=== PATIENT | male | born 1965 | race American Indian/Alaskan Native ===

== ENCOUNTER 2016-10-05 17:01 | Emergency (ER) | payer OTHER ==
[2016-10-05 17:23] VITALS: BP 135/104
--- NOTE | 2016-10-05 17:56 | EDM.PDOC ---
Scribed by Jaimie Pulido 10/05/16 [id number] for Yogesh Jimenez MD ED HPI Trauma - General Chief Complaint: Upper Extremity Injury/Pain Stated Complaint: POSSIBLE BROKEN RIGHT WRIST Time Seen by Provider: 10/05/16 17:04 Source: Reports: Patient, RN, RN notes reviewed History Limitations: Reports: No limitations - History of Present Illness INITIAL COMMENTS - FREE TEXT/NARRATIVE: Complaining of right wrist pain sustained from a fall at home at 16:12 hours. Patient was carrying a laundry basket after drinking 9 beers and tripped. Denies any other injury. Rates pain 01/11. Pain is better immobilized and worse with palpation or ROM. Symptom Onset Date: 10/05/16 Occurred When: just prior to arrival Occurred Where: home Method of Injury: fall Severity: severe Pain/Injury Location: Reports: upper extremity, right Consciousness: Reports: no loss of consciousness Associated Symptoms: Reports: no other symptoms Allergies/ADRs: Allergies No Known Allergies Allergy (Verified 10/05/16 17:07) Home Medications: Ambulatory Orders Aspirin [Bony Chewable Aspirin] 81 mg PO DAILY 12/16/13 [Confirmed 10/05/16] Multivitamin [Multivitamins] 1 each PO DAILY 12/16/13 [Confirmed 10/05/16] Propranolol [Inderal] 10 mg PO BID 12/16/13 [Confirmed 10/05/16] Albuterol [Proventil HFA] 1 puff INH QID PRN 01/05/14 [Confirmed 10/05/16] Albuterol [Proventil Neb Soln] 1 ampule NEB Q6H 01/05/14 [Confirmed 10/05/16] Diclofenac Sodium [Voltaren] 1 applic TOP DAILY 01/05/14 [Confirmed 04/28/16] Mometasone/Formoterol [Dulera 100 Mcg/5 Mcg Inhaler] 1 puff PO DAILY 01/05/14 [ Confirmed 10/05/16] Tiotropium [Spiriva] 18 mcg INH BID 01/05/14 [Confirmed 10/05/16] Ibuprofen [Motrin] 600 mg PO TID PRN 04/28/16 [Confirmed 10/05/16] Lisinopril 10 mg PO TID 09/25/16 [Confirmed 10/05/16] Gabapentin [Neurontin] 10/05/16 oxyCODONE ER [OxyCONTIN] 10/05/16 Past Medical History - Past Health History Medical/Surgical History: Denies Medical/Surgical History Cardiovascular History: Reports: Hypertension Respiratory History: Reports: Asthma, COPD, Other (see below), Pneumonia, recurrent Gastrointestinal History: Reports: PUD Musculoskeletal History: Reports: Other (see below) Other Musculoskeletal History: PERTHES DISEASE, CARPAL TUNNEL SYNDROME BILATERALLY Neurological History: Reports: Other (see below) 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 Psychiatric History: Reports: Addiction (alcohol) - Past Surgical History Respiratory Surgical History: Reports: Tracheostomy Social & Family History - Family History Family Medical History: Noncontributory - Tobacco Use Smoking Status *Q: Current Every Day Smoker Years of Tobacco use: 34 Packs/Tins Daily: 1 Used Tobacco, but Quit: No Month Tobacco Last Used: january Second Hand Smoke Exposure: Yes - Caffeine Use Caffeine Use: Reports: None - Alcohol Use Days Per Week of Alcohol Use: 7 Number of Drinks Per Day: 16 Total Drinks Per Week: 112 - Recreational Drug Use Recreational Drug Use: No Drug Use in Last 12 Months: No - Living Situation & Occupation Living situation: Reports: with family Occupation: unemployed Review of Systems - Review of Systems Review Of Systems: ROS reveals no pertinent complaints other than HPI. Trauma Exam - Physical Exam Exam: See Below Exam Limited By: No limitations General Appearance: Reports: alert, WD/WN, no apparent distress Head: Reports: atraumatic, normocephalic Eyes: bilateral eye: normal inspection Ears: Reports: normal external exam, normal canal, hearing grossly normal, normal TMs Nose: Reports: normal inspection, normal mucousa, no blood Throat/Mouth: Reports: Normal inspection, Normal lips, Normal teeth, Normal gums , Normal oropharynx, Normal voice, No airway compromise Neck: Reports: non-tender, full range of motion, normal alignment, normal inspection Respiratory Exam: Reports: no respiratory distress Cardiovascular: Reports: normal peripheral pulses (at bilateral upper extremities.) Back: Reports: full range of motion, normal inspection, non-tender Extremities: Reports: other (right wrist tender, swollen and mild bruising. Skin intact. ) Neurologic: Reports: other (intoxicated steady gait.) Skin: Reports: Normal color, Warm/dry ED TRAUMA EXTREMITY PROCEDURES - Splinting Right Upper Extremity Splint site: right wrist Pre-procedure NV status: normal Post-procedure NV status: normal Splint material: fiberglass Splint design: volar Applied & form fitted by: provider Provider post-splint application NV check: NV status normal, good position Complications: No Course - Vital Signs Last Recorded V/S: Last Vital Signs Temp 36.6 C 10/05/16 17:16 Pulse 89 10/05/16 17:16 Resp 16 10/05/16 17:16 BP 135/104 H 10/05/16 17:16 Pulse Ox 97 10/05/16 17:16 - Orders/Labs/Meds Orders: Active Orders 24 hr Category Date Time Status Splinting [RC] ASDIRECTED Care 10/05/16 17:30 Active Wrist Comp Min 3V Rt [CR] Urgent Exams 10/05/16 17:05 Taken DME for Discharge [COMM] Routine Oth 10/05/16 17:31 Ordered - Radiology Interpretation Free Text/Narrative:: X-ray right wrist 3 views: Impacted and angulated distal right radius fracture with small avulsion fracture of the distal right ulnar styloid. Departure - Departure Time of Disposition: 17:33 Disposition: Home, Self-Care 01 Condition: good Clinical Impression: Colles' fracture Qualifiers: Encounter type: initial encounter Fracture type: closed Laterality: right Qualified Code(s): S52.531A - Colles' fracture of right radius, initial encounter for closed fracture Instructions: Colles Fracture Forms: ED Department Discharge Additional Instructions: Do not remove splint. Tighten or loosen Fei wrap as needed. Rest, ice pack and elevate right wrist to reduce pain and swelling. Call [facility] tomorrow morning to schedule an appointment for evaluation of your Colle's fracture ([phone]). Return to ER if any further problems. Chambers 5mg/325mg. *do not take this medication while under the influence of alcohol and do not drive while under the influence of this medication. - My Orders Last 24 Hours: My Active Orders 10/05/16 17:05 Wrist Comp Min 3V Rt [CR] Urgent 10/05/16 17:30 Splinting [RC] ASDIRECTED 10/05/16 17:31 DME for Discharge [COMM] Routine - Assessment/Plan Last 24 Hours: My Active Orders 10/05/16 17:05 Wrist Comp Min 3V Rt [CR] Urgent 10/05/16 17:30 Splinting [RC] ASDIRECTED 10/05/16 17:31 DME for Discharge [COMM] Routine I have read and agree with the documentation that has been completed regarding this visit. By signing this record, I attest that the documentation was completed in my physical presence and is an accurate record of the encounter.
== END 2016-10-05 18:01 | disposition home or self-care (01) ==
LOC: DL.ED 17:01
DX: S52.531A Colles' fracture of right radius, initial encounter for closed fracture (principal); I10 Essential (primary) hypertension; J45.909 Unspecified asthma, uncomplicated; J44.9 Chronic obstructive pulmonary disease, unspecified; F17.210 Nicotine dependence, cigarettes, uncomplicated; Z79.899 Other long term (current) drug therapy; W19.XXXA Unspecified fall, initial encounter; Y93.89 Activity, other specified; Y92.009 Unspecified place in unspecified non-institutional (private) residence as the place of occurrence of the external cause
CPT/HCPCS: 29125; 73110-RT; 99283

== ENCOUNTER 2017-09-12 11:14 | Inpatient (IN) | payer OTHER ==
[2017-09-12] MEDS ORDERED: methylPREDNISolone Sodium Succinate 125 MG/2 ML SDV IVPUSH ONE (11:16)
[2017-09-12] MEDS ORDERED: Ondansetron 4 MG/2 ML SDV IV ONE (11:16)
[2017-09-12] MEDS ORDERED: Albuterol/Ipratropium 3.0-0.5 MG/3 ML Neb Soln NEB ONE (11:16)
[2017-09-12] MEDS ORDERED: fentaNYL 100 MCG/2 ML SDV IVPUSH ONE ×2 (11:17→12:18)
--- NOTE | 2017-09-12 11:26 | EDM.PDOC ---
ED HPI GENERAL MEDICAL PROBLEM - General Chief Complaint: Chest Pain Stated Complaint: IN BY AMBULANCE Time Seen by Provider: 09/12/17 11:15 Source of Information: Reports: Patient, EMS, Old Records, RN, RN Notes Reviewed History Limitations: Reports: No Limitations - History of Present Illness INITIAL COMMENTS - FREE TEXT/NARRATIVE: Arrives from home by ambulance with c/o severe right rib pain sustained last night when pt tripped and fell in his bathroom and struck his right chest. Pt c/ o wheezing and SOB which has been getting worse x1 week. Onset: Sudden Onset Date: 09/11/17 Onset Time: 23:30 Duration: Constant Location: Reports: Chest Quality: Reports: Ache, Sharp Severity: Severe Improves with: Reports: Immobilization Worsens with: Reports: Breathing, Movement Associated Symptoms: Reports: No Other Symptoms Treatments INSULATION CUTTER: Reports: NSAIDS Bilateral Chest Pain Score (Numeric/FACES): 10 - Related Data Allergies Allergy/AdvReac Type Severity Reaction Status Date / Time No Known Allergies Allergy Verified 07/20/17 11:17 Home Meds: Home Meds Propranolol [Inderal] 10 mg PO BID 12/16/13 [History] Albuterol [Proventil HFA] 2 puff INH QID PRN 01/05/14 [History] Albuterol [Proventil Neb Soln] 1 ampule NEB Q6H 01/05/14 [History] Mometasone/Formoterol [Dulera 100 Mcg/5 Mcg Inhaler] 1 puff PO DAILY 01/05/14 [ History] Ibuprofen [Motrin] 600 mg PO Q6H PRN 04/28/16 [History] Gabapentin [Neurontin] 400 mg PO TID 10/05/16 [History] Budesonide [Pulmicort] 1 vial INH BID 07/20/17 [History] Cyclobenzaprine [Flexeril] 10 mg PO DAILY PRN 07/20/17 [History] DULoxetine [Cymbalta] 60 mg PO DAILY 07/20/17 [History] Diltiazem [Cardizem SR] 120 mg PO DAILY 07/20/17 [History] Loratadine 10 mg PO DAILY 07/20/17 [History] Melatonin 6 mg PO BEDTIME 07/20/17 [History] Multivitamin B Complex + Zinc 1 tab PO DAILY 07/20/17 [History] Omeprazole 20 mg PO DAILY 07/20/17 [History] traZODone HCl [Trazodone HCl] 50 mg PO BEDTIME 07/20/17 [History] Past Medical History - Past Health History Medical/Surgical History: Denies Medical/Surgical History HEENT History: Reports: None Cardiovascular History: Reports: High Cholesterol, Hypertension Respiratory History: Reports: Asthma, COPD, Other (See Below), Pneumonia, Recurrent Gastrointestinal History: Reports: GERD, PUD Genitourinary History: Reports: None Musculoskeletal History: Reports: Fracture, Other (See Below) Other Musculoskeletal History: PERTHES DISEASE, CARPAL TUNNEL SYNDROME BILATERALLY Neurological History: Reports: Neuropathy, Peripheral, Other (See Below) 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 Psychiatric History: Reports: Addiction, Anxiety, Depression Hematologic History: Reports: None Immunologic History: Reports: None Oncologic (Cancer) History: Reports: None Dermatologic History: Reports: None - Infectious Disease History Infectious Disease History: Reports: None - Past Surgical History Musculoskeletal Surgical History: Social & Family History - Family History Family Medical History: Noncontributory - Tobacco Use Smoking Status *Q: Current Every Day Smoker Tobacco Use Within Last Twelve Months: Cigarettes Years of Tobacco use: 34 Packs/Tins Daily: 1 Used Tobacco, but Quit: No Smoking Cessation Information Provided To Patient: Yes Second Hand Smoke Exposure: Yes Second Hand Smoke Education Provided: No - Tobacco Core Measures Tobacco Use/Smoking Within Last 30 Days: Yes Smoking Frequency Within Last 30 Days: Reports: Five or More Cigarettes Per Day Smokeless Tobacco Use in Last 30 Days: Yes Smokeless Tobacco Use History: None Desires Tobacco Cessation Medication: Refuses FDA Approved Med - Caffeine Use Caffeine Use: Reports: None - Alcohol Use Days Per Week of Alcohol Use: 7 Number of Drinks Per Day: 16 Total Drinks Per Week: 112 Alcohol Use in Last Twelve Months: Yes Alcohol Use Frequency: Daily - Recreational Drug Use Recreational Drug Use: No Drug Use in Last 12 Months: No - Living Situation & Occupation Living situation: Reports: with Family Occupation: Unemployed ED ROS GENERAL - Review of Systems Review Of Systems: ROS reveals no pertinent complaints other than HPI. ED EXAM, GENERAL - Physical Exam Exam: See Below Exam Limited By: No Limitations General Appearance: Alert, Anxious, Mild Distress, Thin, Other (chronically ill , uncomfortable but non-toxic appearing) Eye Exam: Bilateral Eye: Normal Inspection Ears: Hearing Grossly Normal Nose: Normal Inspection, Normal Mucosa, No Blood Throat/Mouth: Normal Inspection, Normal Lips, Normal Teeth, Normal Oropharynx, Normal Voice, No Airway Compromise. No: Perioral Cyanosis Head: Atraumatic, Normocephalic Neck: Normal Inspection, Supple, Non-Tender, Full Range of Motion Respiratory/Chest: No Respiratory Distress, No Accessory Muscle Use, Decreased Breath Sounds, Crackles, Wheezing, Splinting (of Rt chest), Other (Rt mid-to low chest wall with generalized acute tenderness, no visible bruising or swelling, skin is intact) Cardiovascular: Regular Rate, Rhythm, No Edema, No JVD, No Murmur, No Rub, Tachycardia GI/Abdominal: Normal Bowel Sounds, Soft, Non-Tender, No Distention, Pelvis Stable (Male) Exam: Deferred Rectal (Males) Exam: Deferred Back Exam: CVA Tenderness (R), Decreased Range of Motion. No: CVA Tenderness (L ) Extremities: Normal Inspection, Normal Range of Motion, Non-Tender, Normal Capillary Refill, No Pedal Edema Neurological: Alert, Oriented, CN II-XII Intact, Normal Cognition, No Motor/ Sensory Deficits Psychiatric: Anxious Skin Exam: Warm, Dry, Intact, Normal Color, No Rash EKG INTERPRETATION EKG Date: 09/12/17 Time: 11:43 Rhythm: Other (Sinus tach) Rate (Beats/Min): 105 [place]: Normal P-Wave: Present QRS: Other (LAFB) ST-T: Normal QT: Normal Comparison: NA - No Prior EKG Course - Vital Signs Last Recorded V/S: Last Vital Signs Temp 35.3 C 09/12/17 11:10 Pulse 105 H 09/12/17 11:32 Resp 36 H 09/12/17 11:10 BP 128/82 09/12/17 11:10 Pulse Ox 84 L 09/12/17 11:10 - Orders/Labs/Meds Orders: Active Orders 24 hr Category Date Time Status EKG 12 Lead [EKG Documentation Completion] [RC] STAT Care 09/12/17 11:27 Active Peripheral IV Care [RC] . DIRECTED Care 09/12/17 11:17 Active RT Aerosol Therapy [RC] ASDIRECTED Care 09/12/17 11:17 Active CULTURE BLOOD [BC] Stat Lab 09/12/17 11:26 Received CULTURE BLOOD [BC] Stat Lab 09/12/17 11:30 Received Sodium Chloride 0.9% [Saline Flush] Med 09/12/17 11:17 Active 10 ml FLUSH ASDIRECTED PRN Blood Culture x2 Reflex Set [OM.PC] Stat Oth 09/12/17 11:15 Ordered Peripheral IV Insertion Adult [OM.PC] Stat Oth 09/12/17 11:15 Ordered Medication Orders Sodium Chloride (Saline Flush) 10 ml FLUSH ASDIRECTED PRN PRN Reason: Keep Vein Open Last Admin: 09/12/17 11:33 Dose: 10 ml Labs: Laboratory Tests 09/12/17 09/12/17 09/12/17 Range/Units 11:26 11:26 11:26 WBC 10.0 (5.0-10.0) 10^3/uL RBC 4.42 L (4.6-6.2) 10^6/uL Hgb 13.3 L (14.0-18.0) g/dL Hct 38.2 L (40.0-54.0) % MCV 86.4 D (80-100) fL MCH 30.1 (27.0-34.0) pg MCHC 34.8 (33.0-35.0) g/dL Plt Count 284 D (150-450) 10^3/uL Neut % (Auto) 62.8 (42.2-75.2) % Lymph % (Auto) 23.7 (20.5-50.1) % [place] % (Auto) 11.2 H (2-8) % Eos % (Auto) 1.8 (1.0-3.0) % Baso % (Auto) 0.5 (0.0-1.0) % Sodium 122 L (135-145) mmol/L Potassium 4.3 (3.6-5.0) mmol/L Chloride 85 L (101-111) mmol/L Carbon Dioxide 25.0 (21.0-31.0) mmol/L Anion Gap 16.3 BUN 4 L D (7-18) mg/dL Creatinine 0.5 L (0.6-1.3) mg/dL Est Cr Clr Drug Dosing 159.50 mL/min Estimated GFR (MDRD) > 60 BUN/Creatinine Ratio 8.00 Glucose 79 (74-105) mg/dL Calcium 8.7 (8.4-10.2) mg/dl Total Bilirubin 0.6 (0.2-1.0) mg/dL AST 57 H (10-42) IU/L ALT 26 (10-60) IU/L Alkaline Phosphatase 102 (42-121) IU/L Troponin I < 0.02 (0.00-0.02) ng/ml Total Protein 7.7 (6.7-8.2) g/dl Albumin 4.3 (3.2-5.5) g/dl Globulin 3.4 Albumin/Globulin Ratio 1.26 Ethyl Alcohol 68 mg/dL Meds: Medications Generic Name Dose Route Start Last Admin Trade Name Freq PRN Reason Stop Dose Admin Sodium Chloride 10 ml 09/12/17 11:17 09/12/17 11:33 Saline Flush FLUSH 10 ml ASDIRECTED PRN Administration Keep Vein Open Discontinued Medications Generic Name Dose Route Start Last Admin Trade Name Freq PRN Reason Stop Dose Admin Albuterol/Ipratropium 3 ml 09/12/17 11:16 09/12/17 11:33 Duoneb 3.0-0.5 Mg/3 Ml NEB 09/12/17 11:17 3 ml ONETIME ONE Administration Fentanyl 25 mcg 09/12/17 11:17 09/12/17 11:33 Sublimaze IVPUSH 09/12/17 11:18 25 mcg ONETIME ONE Administration Fentanyl 50 mcg 09/12/17 12:18 09/12/17 12:30 Sublimaze IVPUSH 09/12/17 12:19 50 mcg ONETIME ONE Administration Multivitamins/Minerals 10 ml/ 1,011.2 mls @ 999 mls/hr 09/12/17 12:09 12:33 Thiamine HCl 100 mg/ Folic IV 09/12/17 13:09 999 mls/hr Acid 1 mg/ Lactated Ringer's .BOLUS ONE Administration Methylprednisolone Sodium Succinate 125 mg 09/12/17 11:16 09/12/17 11:33 Solu-Medrol IVPUSH 09/12/17 11:17 125 mg ONETIME ONE Administration Ondansetron HCl 4 mg 09/12/17 11:16 09/12/17 11:35 Zofran IV 09/12/17 11:17 4 mg ONETIME ONE Administration - Radiology Interpretation Free Text/Narrative:: CT Chest non-contrast: Acute nondisplaced fractures of the posterolateral right 8th, 9th, 10th, & 11th ribs with small ipsilateral dependent pleural effusion, and underlying lower lobe atelectasis on the right. No pneumothorax, no lung mass or mediastinal lymphadenoathy, and no infiltrate/consolidation/pneumonia per Rad. report. CT Results Date: 09/12/17 Departure - Departure Time of Disposition: 13:38 (admitted to Dr. Rendon) Disposition: Admitted As Inpatient 67 Condition: Fair Clinical Impression: COPD with acute exacerbation, Alcohol abuse, Tobacco dependence due to cigarettes, Hypoxia, Hyponatremia Fracture of four ribs Qualifiers: Encounter type: initial encounter Fracture type: closed Laterality: right Qualified Code(s): S22.41XA - Multiple fractures of ribs, right side, initial encounter for closed fracture Fall as cause of accidental injury in home as place of occurrence Qualifiers: Encounter type: initial encounter Qualified Code(s): W19.XXXA - Unspecified fall, initial encounter; Y92.009 - Unspecified place in unspecified non- institutional (private) residence as the place of occurrence of the external cause - Discharge Information Forms: ED Department Discharge - My Orders Last 24 Hours: My Active Orders 09/12/17 11:15 Blood Culture x2 Reflex Set [OM.PC] Stat Peripheral IV Insertion Adult [OM.PC] Stat 09/12/17 11:17 Peripheral IV Care [RC] . DIRECTED RT Aerosol Therapy [RC] ASDIRECTED Sodium Chloride 0.9% [Saline Flush] 10 ml FLUSH ASDIRECTED PRN 09/12/17 11:26 CULTURE BLOOD [BC] Stat 09/12/17 11:27 EKG 12 Lead [EKG Documentation Completion] [RC] STAT 09/12/17 11:30 CULTURE BLOOD [BC] Stat - Assessment/Plan Last 24 Hours: My Active Orders 09/12/17 11:15 Blood Culture x2 Reflex Set [OM.PC] Stat Peripheral IV Insertion Adult [OM.PC] Stat 09/12/17 11:17 Peripheral IV Care [RC] . DIRECTED RT Aerosol Therapy [RC] ASDIRECTED Sodium Chloride 0.9% [Saline Flush] 10 ml FLUSH ASDIRECTED PRN 09/12/17 11:26 CULTURE BLOOD [BC] Stat 09/12/17 11:27 EKG 12 Lead [EKG Documentation Completion] [RC] STAT 09/12/17 11:30 CULTURE BLOOD [BC] Stat
[2017-09-12] MEDS: Sodium Chloride 0.9% 10 ML Syringe FLUSH PRN ×2 (11:33→15:02)
[2017-09-12 12:06] LABS: ANION GAP 16.3; CHLORIDE,CL 85 mmol/L (101-111); SODIUM,NA 122 mmol/L (135-145)
[2017-09-12] MEDS ORDERED: MVI, Adult with Vitamin K 10 ML, Thiamine 100 MG, Folic Acid 1 MG in Lactated Ringers 1... IV ONE ×4 (12:09)
--- NOTE | 2017-09-12 12:26 | CT ---
Clinical history: 51-year-old hypertensive 145 pound male smoker who injured right chest/rib (fall) p resents now pain and wheezing. Scan technique: Volume acquisition of data emergency unenhanced CT scan of the chest (bony thorax, kei ngs and mediastinum) obtained while the patient was lying supine on the Siemens multislice scanner [place], [place]. All data archived in the PACS system for storage, refo rmatting and study (bone/lung/mediastinal windows). Interpretation:
[2017-09-12] MEDS: Sodium Chloride 0.9% 1,000 ML IV SCH (14:00)
[2017-09-12] MEDS ORDERED: Acetaminophen 325 MG Tab PO PRN (14:50)
[2017-09-12] MEDS ORDERED: Aluminum Hydroxide/Magnesium Hydroxide/Simethicone Susp 30 ML Cup PO PRN (14:50)
[2017-09-12] MEDS ORDERED: Bisacodyl 10 MG Supp RECTAL PRN (14:50)
[2017-09-12] MEDS ORDERED: Magnesium Hydroxide 400 MG/5 ML Susp 30 ML Cup PO PRN (14:50)
[2017-09-12] MEDS ORDERED: Calcium Carbonate 500 MG Tab.Chew PO PRN (14:50)
[2017-09-12] MEDS ORDERED: Morphine 2 MG/ML Syringe IVPUSH STA (14:55)
[2017-09-12] MEDS ORDERED: Albuterol 6.7 GM Inhaler INH PRN (14:56)
[2017-09-12] MEDS ORDERED: Albuterol 0.021% 0.63 MG/3 ML Neb Soln NEB SCH (15:00)
[2017-09-12] MEDS ORDERED: methylPREDNISolone Sod Succ 60 MG in Sodium Chloride 0.9% 100 ML IV SCH (15:00)
--- NOTE | 2017-09-12 15:26 | PCM.HP ---
H&P History of Present Illness - General Date of Service: 09/12/17 Admit Problem/Dx: Admission Diagnosis/Problem Admission Diagnosis/Problem COPD, Moderate chronic obstructive pulmonary disease Source of Information: Patient History Limitations: Reports: No Limitations - History of Present Illness Initial Comments - Free Text/Narative: Mr. John Paul Sanchez is a 51-year-old male severe cervical myelopathy with cord compression, secondary to degenerative cervical spinal/lumbar stenosis s/p surgery in 01/2017, Chronic lower back pain, COPD, continuos alcohol and tobacco abuse, multiple falls, baseline uses walker and wheel chair for ambulation. He presented to the ER on account of severe pain to the right side of the chest and SOB with wheezing. He said he fell last night and hit the right side of the toilet bowl and sustained pain to the right side of the chest. Patient admit he was drunk. He went to bed and woke up with difficulty breathing. He reports severe pain with inspiration to the right side of the chest. SOB is associated with wheezing. He denies fever, chills, sick contact. CT [address] in the ER showed acute nondisplaced fractures of the posterolateral right 8th, 9th, 10th, & 11th ribs with small ipsilateral dependent pleural effusion, and underlying lower lobe atelectasis. Onset of Symptoms: Reports: Today, Sudden Duration of Symptoms: Reports: Hour(s):, Day(s): Location: Reports: Other (right side of chest) Quality: Reports: Sharp Severity: Severe Improves with: Reports: Rest Worsens with: Reports: Breathing, Movement Context: Reports: Activity/Exercise Associated Symptoms: Reports: Shortness of Breath Bilateral Chest Pain Score (Numeric/FACES): 10 - Related Data Allergies/Adverse Reactions: Allergies Allergy/AdvReac Type Severity Reaction Status Date / Time No Known Allergies Allergy Verified 07/20/17 11:17 Home Medications: Home Meds Propranolol [Inderal] 10 mg PO BID 12/16/13 [History] Albuterol [Proventil HFA] 2 puff INH QID PRN 01/05/14 [History] Albuterol [Proventil Neb Soln] 1 ampule NEB Q6H 01/05/14 [History] Mometasone/Formoterol [Dulera 100 Mcg/5 Mcg Inhaler] 1 puff PO QID 01/05/14 [ History] Ibuprofen [Motrin] 400 mg PO Q6H PRN 04/28/16 [History] Budesonide [Pulmicort] 1 vial INH BID 07/20/17 [History] Cyclobenzaprine [Flexeril] 10 mg PO DAILY PRN 07/20/17 [History] DULoxetine [Cymbalta] 60 mg PO DAILY 07/20/17 [History] Loratadine 10 mg PO DAILY 07/20/17 [History] Melatonin 3 mg PO BEDTIME 07/20/17 [History] Multivitamin B Complex + Zinc 1 tab PO DAILY 07/20/17 [History] Omeprazole 20 mg PO DAILY 07/20/17 [History] traZODone HCl [Trazodone HCl] 50 mg PO BEDTIME 07/20/17 [History] Gabapentin [Neurontin] 400 mg PO TID 09/12/17 [History] Past Medical History - Past Health History Medical/Surgical History: Denies Medical/Surgical History HEENT History: Reports: None, Impaired Vision, Other (See Below) Other HEENT History: double vision Cardiovascular History: Reports: High Cholesterol, Hypertension Respiratory History: Reports: Asthma, Bronchitis, Recurrent, COPD, Pneumonia, Recurrent, SOB, Other (See Below) Gastrointestinal History: Reports: GERD, PUD Genitourinary History: Reports: None Musculoskeletal History: Reports: Fracture, Other (See Below) Other Musculoskeletal History: PERTHES DISEASE, CARPAL TUNNEL SYNDROME BILATERALLY Neurological History: Reports: Neuropathy, Peripheral, Other (See Below) 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 Psychiatric History: Reports: Addiction, Anxiety, Depression Hematologic History: Reports: None Immunologic History: Reports: None Oncologic (Cancer) History: Reports: None Dermatologic History: Reports: None - Infectious Disease History Infectious Disease History: Reports: Chicken Pox - Past Surgical History Head Surgeries/Procedures: Reports: None HEENT Surgical History: Reports: None Respiratory Surgical History: Reports: Other (See Below) Other Respiratory Surgeries/Procedures: bronch GI Surgical History: Reports: EGD Endocrine Surgical History: Reports: None Social & Family History - Family History Family Medical History: Noncontributory Respiratory: Reports: COPD Endocrine/Metabolic: Reports: Diabetes, type II Oncologic: Reports: Lung - Tobacco Use Smoking Status *Q: Current Every Day Smoker Years of Tobacco use: 35 Packs/Tins Daily: 0.5 Used Tobacco, but Quit: No Month/Year Tobacco Last Used: january Second Hand Smoke Exposure: No - Caffeine Use Caffeine Use: Reports: None - Alcohol Use Days Per Week of Alcohol Use: 7 Number of Drinks Per Day: 12 Total Drinks Per Week: 84 - Recreational Drug Use Recreational Drug Use: No Drug Use in Last 12 Months: No - Living Situation & Occupation Living situation: Reports: with Family Occupation: Unemployed H&P Review of Systems - Review of Systems: Review Of Systems: See Below General: Reports: No Symptoms HEENT: Reports: No Symptoms Pulmonary: Reports: Shortness of Breath, Wheezing Cardiovascular: Reports: No Symptoms Gastrointestinal: Reports: No Symptoms Genitourinary: Reports: No Symptoms Musculoskeletal: Reports: Back Pain Skin: Reports: No Symptoms Psychiatric: Reports: No Symptoms Neurological: Reports: No Symptoms Hematologic/Lymphatic: Reports: No Symptoms Immunologic: Reports: No Symptoms Exam - Exam Exam: See Below - Vital Signs Vital Signs: Last Vital Signs Temp 99.1 F 09/12/17 14:08 Pulse 111 H 09/12/17 14:08 Resp 22 H 09/12/17 14:08 BP 165/99 H 09/12/17 14:08 Pulse Ox 92 L 09/12/17 14:08 Weight: 150 lb - Exam Quality Assessment: Supplemental Oxygen, DVT Prophylaxis General: Alert, Oriented, Cooperative, Moderate Distress HEENT: PERRLA, Hearing Intact, Mucosa Moist & [place], Nares Patent, Normal Nasal Septum, Posterior Pharynx Clear, Conjunctiva Clear, EOMI, EACs Clear, TMs Clear Neck: Supple, Trachea Midline, 2 Lungs: Decreased Breath Sounds, Wheezing Cardiovascular: Tachycardia GI/Abdominal Exam: Normal Bowel Sounds, Soft, Non-Tender, No Organomegaly, No Distention, No Abnormal Bruit, No Mass, Pelvis Stable (Male) Exam: No Hernia, Normal Inspection, Normal Prostate, Circumcised Rectal (Males) Exam: Deferred Back Exam: Normal Inspection Extremities: Normal Inspection, Normal Range of Motion, Non-Tender, No Pedal Edema, Normal Capillary Refill Skin: Warm, Dry, Intact Neurological: Cranial Nerves Intact, Reflexes Equal Bilateral Neuro Extensive - Mental Status: Alert, Oriented x3, Normal Mood/Affect, Normal Cognition, Memory Intact Neuro Extensive - Motor, Sensory, Reflexes: CN II-XII Intact, Tongue Deviation ( L) Psychiatric: Alert, Normal Affect, Normal Mood - Patient Data Lab Results Last 24 hrs: Laboratory Results - last 24 hr 09/12/17 09/12/17 09/12/17 Range/Units 11:26 11:26 11:26 WBC 10.0 (5.0-10.0) 10^3/uL RBC 4.42 L (4.6-6.2) 10^6/uL Hgb 13.3 L (14.0-18.0) g/dL Hct 38.2 L (40.0-54.0) % MCV 86.4 D (80-100) fL MCH 30.1 (27.0-34.0) pg MCHC 34.8 (33.0-35.0) g/dL Plt Count 284 D (150-450) 10^3/uL Neut % (Auto) 62.8 (42.2-75.2) % Lymph % (Auto) 23.7 (20.5-50.1) % Cottle % (Auto) 11.2 H (2-8) % Eos % (Auto) 1.8 (1.0-3.0) % Baso % (Auto) 0.5 (0.0-1.0) % Sodium 122 L (135-145) mmol/L Potassium 4.3 (3.6-5.0) mmol/L Chloride 85 L (101-111) mmol/L Carbon Dioxide 25.0 (21.0-31.0) mmol/L Anion Gap 16.3 BUN 4 L D (7-18) mg/dL Creatinine 0.5 L (0.6-1.3) mg/dL Est Cr Clr Drug Dosing 159.50 mL/min Estimated GFR (MDRD) > 60 BUN/Creatinine Ratio 8.00 Glucose 79 (74-105) mg/dL Calcium 8.7 (8.4-10.2) mg/dl Total Bilirubin 0.6 (0.2-1.0) mg/dL AST 57 H (10-42) IU/L ALT 26 (10-60) IU/L Alkaline Phosphatase 102 (42-121) IU/L Troponin I < 0.02 (0.00-0.02) ng/ml Total Protein 7.7 (6.7-8.2) g/dl Albumin 4.3 (3.2-5.5) g/dl Globulin 3.4 Albumin/Globulin Ratio 1.26 Ethyl Alcohol 68 mg/dL Result Diagrams: 09/12/17 11:26 09/12/17 11:26 - Problem List (1) Alcohol abuse SNOMED Code(s): 80608705 ICD Code: F10.10 - ALCOHOL ABUSE, UNCOMPLICATED Status: Acute Current Visit: No (2) Atelectasis SNOMED Code(s): 02143752 Status: Acute Current Visit: No (3) COPD with acute exacerbation SNOMED Code(s): 022736387 ICD Code: J44.1 - CHRONIC OBSTRUCTIVE PULMONARY DISEASE W (ACUTE) EXACERBATION Status: Acute Current Visit: No (4) Closed fracture of multiple ribs SNOMED Code(s): 81433664 Status: Acute Current Visit: No (5) Fall as cause of accidental injury in home as place of occurrence SNOMED Code(s): 15449379 ICD Code: W19.XXXA - UNSPECIFIED FALL, INITIAL ENCOUNTER; Y92.009 - UNSP PLACE IN UNSP NON-INSTITUT (PRIVATE) RESIDENCE PLACE Status: Acute Current Visit: No Qualifiers: Encounter type: initial encounter Qualified Code(s): W19.XXXA - Unspecified fall, initial encounter; Y92.009 - Unspecified place in unspecified non-institutional (private) residence as the place of occurrence of the external cause (6) Fracture of four ribs SNOMED Code(s): 05948797 ICD Code: S22.49XA - MULTIPLE FRACTURES OF RIBS, UNSP SIDE, INIT FOR CLOS FX Status: Acute Current Visit: No Problem List Initiated/Reviewed/Updated: Yes Orders Last 24hrs: Active Orders 24 hr Category Date Time Status Patient Status [ADT] Routine ADT 09/12/17 14:50 Ordered Antiembolic Devices [RC] .Routine Care 09/12/17 14:55 Ordered Bedrest Bathroom Privileges [RC] ASDIRECTED Care 09/12/17 14:50 Ordered EKG 12 Lead [EKG Documentation Completion] [RC] STAT Care 09/12/17 11:27 Active Incentive Breathing [RT Incentive Spirometry] [RC] Care 09/12/17 15:04 Ordered ASDIRECTED Oxygen Therapy [RC] PRN Care 09/12/17 14:54 Ordered Peripheral IV Care [RC] . DIRECTED Care 09/12/17 11:17 Active Pulse Oximetry [RC] CONTINUOUS Care 09/12/17 14:53 Ordered RT Aerosol Therapy [RC] ASDIRECTED Care 09/12/17 11:17 Active RT Aerosol Therapy [RC] ASDIRECTED Care 09/12/17 15:02 Ordered VTE/DVT Education [RC] PER UNIT ROUTINE Care 09/12/17 14:55 Ordered Vital Signs [RC] Q4H Care 09/12/17 14:50 Ordered BASIC METABOLIC PANEL,BMP [CHEM] Routine Lab 09/13/17 07:00 Ordered CULTURE BLOOD [BC] Stat Lab 09/12/17 11:26 Received CULTURE BLOOD [BC] Stat Lab 09/12/17 11:30 Received MAGNESIUM [CHEM] Routine Lab 09/12/17 15:06 Ordered PHOSPHORUS [CHEM] Routine Lab 09/12/17 15:06 Ordered Acetaminophen [Tylenol] Med 09/12/17 14:50 Ordered 650 mg PO Q4H PRN Acetaminophen/oxyCODONE [Percocet 325-5 MG] Med 09/12/17 15:00 Ordered 1 tab PO Q6H PRN Albuterol/Ipratropium [DuoNeb 3.0-0.5 MG/3 ML] Med 09/12/17 19:00 Ordered 3 ml NEB Q4HRRT Alum Hydrox/Mag Hydrox/Simeth [Mag-Al Plus] Med 09/12/17 14:50 Ordered 30 ml PO Q4H PRN Bisacodyl [Dulcolax] Med 09/12/17 14:50 Ordered 10 mg RECTAL DAILY PRN Budesonide [Pulmicort] Med 09/12/17 21:00 Ordered 1 vial INH BID Calcium Carbonate [Tums] Med 09/12/17 14:50 Ordered 500 mg PO Q4H PRN Cyclobenzaprine [Flexeril] Med 09/12/17 14:56 Ordered 10 mg PO DAILY PRN DULoxetine [Cymbalta] Med 09/13/17 09:00 Ordered 60 mg PO DAILY Docusate Sodium [Colace] Med 09/12/17 14:50 Ordered 100 mg PO DAILY PRN Gabapentin Med 09/12/17 21:00 Ordered 400 mg PO TID Heparin Sodium Med 09/12/17 15:00 Ordered 5,000 units SUBCUT Q12H Loratadine [Claritin] Med 09/13/17 09:00 Ordered 10 mg PO DAILY Magnesium Hydroxide [Milk of Magnesia] Med 09/12/17 14:50 Ordered 30 ml PO BID PRN Melatonin [Melatonin] Med 09/12/17 21:00 Ordered 3 mg PO BEDTIME Multivitamin B Complex + Zinc Med 09/13/17 09:00 Ordered 1 tab PO DAILY Nicotine [Habitrol] Med 09/13/17 09:00 Ordered 14 mg TRDERM DAILY Omeprazole [Omeprazole] Med 09/13/17 09:00 Ordered 20 mg PO DAILY Propranolol [Inderal] Med 09/12/17 21:00 Ordered 10 mg PO BID Sodium Chloride 0.9% [Saline Flush] Med 09/12/17 11:17 Active 10 ml FLUSH ASDIRECTED PRN methylPREDNISolone Sod Succ [Solu-MEDROL] 60 mg Med 09/12/17 15:00 Ordered Sodium Chloride 0.9% [Normal Saline] 100 ml IV Q8H traZODone Med 09/12/17 21:00 Ordered 50 mg PO BEDTIME Blood Culture x2 Reflex Set [OM.PC] Stat Oth 09/12/17 11:15 Ordered DVT/VTE Prophylaxis Reflex [OM.PC] Routine Oth 09/12/17 14:50 Ordered Peripheral IV Insertion Adult [OM.PC] Stat Oth 09/12/17 11:15 Ordered Resuscitation Status Routine Resus Stat 09/12/17 14:50 Ordered Medication Orders Acetaminophen (Tylenol) 650 mg PO Q4H PRN PRN Reason: Pain (mild 1-3 )/fever Al Hydroxide/Mg Hydroxide (Mag-Al Plus) 30 ml PO Q4H PRN PRN Reason: Dyspepsia Albuterol/Ipratropium (Duoneb 3.0-0.5 Mg/3 Ml) 3 ml NEB Q4HRRT [facility] Bisacodyl (Dulcolax) 10 mg RECTAL DAILY PRN PRN Reason: Constipation Budesonide (Pulmicort) mg INH BID [facility] Calcium Carbonate/Glycine (Tums) 500 mg PO Q4H PRN PRN Reason: Dyspepsia Cyclobenzaprine HCl (Flexeril) 10 mg PO DAILY PRN PRN Reason: Muscle Spasm Docusate Sodium (Colace) 100 mg PO DAILY PRN PRN Reason: Constipation Heparin Sodium (Porcine) (Heparin Sodium) 5,000 units SUBCUT Q12H [facility] Methylprednisolone Sodium Succinate 60 mg/ Sodium Chloride 100.48 mls @ 100 mls /hr IV Q8H [facility] Loratadine (Claritin) 10 mg PO DAILY [facility] Magnesium Hydroxide (Milk Of Magnesia) 30 ml PO BID PRN PRN Reason: Constipation Nicotine (Habitrol) 14 mg TRDERM DAILY [facility] Non-Formulary Medication (Duloxetine [Cymbalta]) 60 mg PO DAILY [facility] Non-Formulary Medication (Gabapentin) 400 mg PO TID [facility] Non-Formulary Medication (Melatonin [Melatonin]) 3 mg PO BEDTIME [facility] Non-Formulary Medication (Multivitamin B Complex + Zinc ) 1 tab PO DAILY [facility] Non-Formulary Medication (Omeprazole [Omeprazole]) 20 mg PO DAILY [facility] Oxycodone/Acetaminophen (Percocet 325-5 Mg) 1 tab PO Q6H PRN PRN Reason: pain Propranolol HCl (Inderal) 10 mg PO BID [facility] Sodium Chloride (Saline Flush) 10 ml FLUSH ASDIRECTED PRN PRN Reason: Keep Vein Open Last Admin: 09/12/17 15:02 Dose: 10 ml Admin: 09/12/17 11:33 Dose: 10 ml Trazodone HCl (Trazodone) 50 mg PO BEDTIME [facility] Assessment/Plan Comment:: #Acute hypoxic respiratory failure due to COPD exacerbation vs multiple rib fracture -Patient presented with SOB, wheezing and SO2 in the lower 80s -will admit at this time -Continue supplemental oxygen and wean off as tolerated -Adequate pain control -Inspiratory spirometry #COPD exacebation -This colud be due to the pain from multiple rib fracture -Duo-Nebs q4h -Methylprednisolone 60 mg IV tid -Ensure adequate pain control #Multiple non-displaced rib fractures -Pain control with percocet -Incentive spirometry #Alcohol intoxication -EtoH was 68 at presentation -Complete banana bag -Then continue with IVF @ 75 -monitor for alcohol withdrawal symptoms -Send for mag, phos and correct all electrolytes as needed -Fall/ Aspiration/seizure precautions. -He is advised to quit abusing alcohol #Hyponatremia -Patient indicates this is chronic -will repeat bmp in the AM -N/S at 75 cc/hr #Continuous tobacco abuse -Advised to quit -Nicotine patch #Chronic back pain -Continue home medications #HTN -BP at goal -Continue Home medication -monitor BP closely #Depression -Continue home meds #Regular diet #Full code
[2017-09-12] MEDS ORDERED: methylPREDNISolone Sodium Succinate 125 MG/2 ML SDV IV SCH (16:45)
[2017-09-12] MEDS ORDERED: Heparin Sodium 5,000 Units/ML Vial SUBCUT SCH (16:45)
[2017-09-12] MEDS: Acetaminophen/oxyCODONE 325-5 MG Tab PO PRN (17:26)
[2017-09-12] MEDS: Gabapentin 400 MG Cap PO SCH ×2 (17:33→21:14)
[2017-09-12] MEDS: Nicotine 14 MG/24 Hr Patch TRDERM SCH (17:33)
[2017-09-12] MEDS: Budesonide 0.5 MG/2 ML Neb Susp INH SCH (19:01)
[2017-09-12] MEDS: Albuterol/Ipratropium 3.0-0.5 MG/3 ML Neb Soln NEB SCH ×3 (19:01→23:19)
--- NOTE | 2017-09-12 20:26 | EKG ---
09/12/2017 - ENRIQUE SHERWOOD - TIME: 11:43 a.m. EKG, as per my reading shows sinus tachycardia at 105. [facility] /[id number]
[2017-09-12] MEDS: Propranolol 10 MG Tab PO SCH (21:13)
[2017-09-12] MEDS: Heparin Sodium 5,000 Units/ML Vial SUBCUT SCH (21:14)
[2017-09-12] MEDS: traZODone 50 MG Tab PO SCH (21:14)
[2017-09-12] MEDS: methylPREDNISolone Sodium Succinate 125 MG/2 ML SDV IV SCH (21:15)
[2017-09-13] MEDS: Albuterol/Ipratropium 3.0-0.5 MG/3 ML Neb Soln NEB SCH ×6 (03:17→22:16)
[2017-09-13] MEDS: Sodium Chloride 0.9% 1,000 ML IV SCH (04:57)
[2017-09-13 06:45] LABS: ANION GAP 11.9; CHLORIDE,CL 94 mmol/L (101-111); SODIUM,NA 130 mmol/L (135-145)
[2017-09-13] MEDS: methylPREDNISolone Sodium Succinate 125 MG/2 ML SDV IV SCH ×3 (06:52→21:36)
[2017-09-13] MEDS: Omeprazole 20 MG Cap.CR PO SCH (06:52)
[2017-09-13] MEDS: Budesonide 0.5 MG/2 ML Neb Susp INH SCH ×2 (07:05→19:06)
[2017-09-13] MEDS: Propranolol 10 MG Tab PO SCH ×2 (09:21→21:26)
[2017-09-13] MEDS: DULoxetine 30 MG Cap PO SCH (09:23)
[2017-09-13] MEDS: Multivitamins, Therapeutic with Minerals Tab PO SCH (09:23)
[2017-09-13] MEDS: Loratadine 10 MG Tab PO SCH (09:23)
[2017-09-13] MEDS: Gabapentin 400 MG Cap PO SCH ×3 (09:23→21:27)
[2017-09-13] MEDS: Acetaminophen/oxyCODONE 325-5 MG Tab PO PRN ×2 (09:24→15:02)
[2017-09-13] MEDS: Nicotine 14 MG/24 Hr Patch TRDERM SCH (09:27)
[2017-09-13] MEDS: Heparin Sodium 5,000 Units/ML Vial SUBCUT SCH ×2 (09:27→21:29)
[2017-09-13] MEDS ORDERED: Morphine 2 MG/ML Syringe IVPUSH PRN (11:08)
--- NOTE | 2017-09-13 11:15 | PCM.PN ---
- General Info Admission Dx/Problem (Free Text): Admission Diagnosis/Problem Admission Diagnosis/Problem COPD, Moderate chronic obstructive pulmonary disease Subjective Update: Mr. John Paul Sanchez is a 51-year-old male severe cervical myelopathy with cord compression, secondary to degenerative cervical spinal/lumbar stenosis s/p surgery in 01/2017, Chronic lower back pain, COPD, alcohol and tobacco abuse, multiple falls, at baseline uses walker and wheel chair for ambulation who presented to the ER on account of severe pain to the right side of the chest and SOB with wheezing. CT chest in the ER showed acute nondisplaced fractures of the posterolateral right 8th, 9th, 10th, & 11th ribs with small ipsilateral dependent pleural effusion, and underlying lower lobe atelectasis. Being treated for COPD exacerbation and multiple rib fractures. Today, he says SOB has improved. He feels better. Pleuritic chest pain is partly controlled with oral pain medications. - Review of Systems General: Reports: No Symptoms Pulmonary: Reports: Shortness of Breath, Pleuritic Chest Pain Cardiovascular: Reports: No Symptoms Gastrointestinal: Reports: No Symptoms Genitourinary: Reports: No Symptoms Musculoskeletal: Reports: No Symptoms - Patient Data Vitals - Most Recent: Last Vital Signs Temp 37.2 C 09/13/17 07:58 Pulse 92 09/13/17 09:21 Resp 21 H 09/13/17 07:58 BP 155/92 H 09/13/17 09:21 Pulse Ox 95 09/13/17 07:58 Weight - Most Recent: 68.039 kg I&O - Last 24 Hours: Intake & Output 09/12/17 09/13/17 09/13/17 22:59 06:59 14:59 Intake Total 1000 1125 2210 Output Total 2600 1825 775 Balance -1600 -700 1435 Lab Results Last 24 Hours: Laboratory Results - last 24 hr 09/12/17 09/12/17 09/12/17 Range/Units 11:26 11:26 11:26 WBC 10.0 (5.0-10.0) 10^3/uL RBC 4.42 L (4.6-6.2) 10^6/uL Hgb 13.3 L (14.0-18.0) g/dL Hct 38.2 L (40.0-54.0) % MCV 86.4 D (80-100) fL MCH 30.1 (27.0-34.0) pg MCHC 34.8 (33.0-35.0) g/dL Plt Count 284 D (150-450) 10^3/uL Neut % (Auto) 62.8 (42.2-75.2) % Lymph % (Auto) 23.7 (20.5-50.1) % [place] % (Auto) 11.2 H (2-8) % Eos % (Auto) 1.8 (1.0-3.0) % Baso % (Auto) 0.5 (0.0-1.0) % Sodium 122 L (135-145) mmol/L Potassium 4.3 (3.6-5.0) mmol/L Chloride 85 L (101-111) mmol/L Carbon Dioxide 25.0 (21.0-31.0) mmol/L Anion Gap 16.3 BUN 4 L D (7-18) mg/dL Creatinine 0.5 L (0.6-1.3) mg/dL Est Cr Clr Drug Dosing 159.50 mL/min Estimated GFR (MDRD) > 60 BUN/Creatinine Ratio 8.00 Glucose 79 (74-105) mg/dL Calcium 8.7 (8.4-10.2) mg/dl Phosphorus (2.5-4.6) mg/dL Magnesium (1.8-2.5) mg/dL Total Bilirubin 0.6 (0.2-1.0) mg/dL AST 57 H (10-42) IU/L ALT 26 (10-60) IU/L Alkaline Phosphatase 102 (42-121) IU/L Troponin I < 0.02 (0.00-0.02) ng/ml Total Protein 7.7 (6.7-8.2) g/dl Albumin 4.3 (3.2-5.5) g/dl Globulin 3.4 Albumin/Globulin Ratio 1.26 Ethyl Alcohol 68 mg/dL 09/12/17 09/13/17 Range/Units 11:26 06:20 WBC (5.0-10.0) 10^3/uL RBC (4.6-6.2) 10^6/uL Hgb (14.0-18.0) g/dL Hct (40.0-54.0) % MCV (80-100) fL MCH (27.0-34.0) pg MCHC (33.0-35.0) g/dL Plt Count (150-450) 10^3/uL Neut % (Auto) (42.2-75.2) % Lymph % (Auto) (20.5-50.1) % [place] % (Auto) (2-8) % Eos % (Auto) (1.0-3.0) % Baso % (Auto) (0.0-1.0) % Sodium 130 L (135-145) mmol/L Potassium 3.9 (3.6-5.0) mmol/L Chloride 94 L (101-111) mmol/L Carbon Dioxide 28.0 (21.0-31.0) mmol/L Anion Gap 11.9 BUN 7 (7-18) mg/dL Creatinine 0.5 L (0.6-1.3) mg/dL Est Cr Clr Drug Dosing 159.50 mL/min Estimated GFR (MDRD) > 60 BUN/Creatinine Ratio Glucose 130 H (74-105) mg/dL Calcium 8.7 (8.4-10.2) mg/dl Phosphorus 4.0 (2.5-4.6) mg/dL Magnesium 1.7 L (1.8-2.5) mg/dL Total Bilirubin (0.2-1.0) mg/dL AST (10-42) IU/L ALT (10-60) IU/L Alkaline Phosphatase (42-121) IU/L Troponin I (0.00-0.02) ng/ml Total Protein (6.7-8.2) g/dl Albumin (3.2-5.5) g/dl Globulin Albumin/Globulin Ratio Ethyl Alcohol mg/dL Med Orders - Current: Current Medications Acetaminophen (Tylenol) 650 mg PO Q4H PRN PRN Reason: Pain (mild 1-3 )/fever Al Hydroxide/Mg Hydroxide (Mag-Al Plus) 30 ml PO Q4H PRN PRN Reason: Dyspepsia Albuterol/Ipratropium (Duoneb 3.0-0.5 Mg/3 Ml) 3 ml NEB Q4HRRT [facility] Last Admin: 09/13/17 07:06 Dose: 3 ml Bisacodyl (Dulcolax) 10 mg RECTAL DAILY PRN PRN Reason: Constipation Budesonide (Pulmicort) 0.5 mg INH BIDRT [facility] Last Admin: 09/13/17 07:05 Dose: 0.5 mg Calcium Carbonate/Glycine (Tums) 500 mg PO Q4H PRN PRN Reason: Dyspepsia Cyclobenzaprine HCl (Flexeril) 10 mg PO DAILY PRN PRN Reason: Muscle Spasm Docusate Sodium (Colace) 100 mg PO DAILY PRN PRN Reason: Constipation Duloxetine HCl (Cymbalta) 60 mg PO DAILY [facility] Last Admin: 09/13/17 09:23 Dose: 60 mg Gabapentin (Neurontin) 400 mg PO TID [facility] Last Admin: 09/13/17 09:23 Dose: 400 mg Heparin Sodium (Porcine) (Heparin Sodium) 5,000 units SUBCUT Q12H [facility] Last Admin: 09/13/17 09:27 Dose: 5,000 units Loratadine (Claritin) 10 mg PO DAILY [facility] Last Admin: 09/13/17 09:23 Dose: 10 mg Magnesium Hydroxide (Milk Of Magnesia) 30 ml PO BID PRN PRN Reason: Constipation Methylprednisolone Sodium Succinate (Solu-Medrol) 60 mg IV Q8HR [facility] Last Admin: 09/13/17 06:52 Dose: 60 mg Multivitamins/Minerals (Vitamins And Minerals) 1 tab PO DAILY [facility] Last Admin: 09/13/17 09:23 Dose: 1 tab Nicotine (Habitrol) 14 mg TRDERM DAILY [facility] Last Admin: 09/13/17 09:27 Dose: 14 mg Non-Formulary Medication (Melatonin [Melatonin]) 3 mg PO BEDTIME [facility] Omeprazole (Omeprazole) 20 mg PO ACBRK [facility] Last Admin: 09/13/17 06:52 Dose: 20 mg Oxycodone/Acetaminophen (Percocet 325-5 Mg) 1 tab PO Q6H PRN PRN Reason: pain Last Admin: 09/13/17 09:24 Dose: 1 tab Propranolol HCl (Inderal) 10 mg PO BID [facility] Last Admin: 09/13/17 09:21 Dose: 10 mg Sodium Chloride (Saline Flush) 10 ml FLUSH ASDIRECTED PRN PRN Reason: Keep Vein Open Last Admin: 09/12/17 15:02 Dose: 10 ml Trazodone HCl (Trazodone) 50 mg PO BEDTIME [facility] Last Admin: 09/12/17 21:14 Dose: 50 mg Discontinued Medications Albuterol (Proventil Hfa) gm INH QID PRN PRN Reason: Dyspnea Albuterol (Proventil Neb Soln) mg NEB Q4HRRT [facility] Albuterol/Ipratropium (Duoneb 3.0-0.5 Mg/3 Ml) 3 ml NEB ONETIME ONE Stop: 09/12/17 11:17 Last Admin: 09/12/17 11:33 Dose: 3 ml Fentanyl (Sublimaze) 25 mcg IVPUSH ONETIME ONE Stop: 09/12/17 11:18 Last Admin: 09/12/17 11:33 Dose: 25 mcg Fentanyl (Sublimaze) 50 mcg IVPUSH ONETIME ONE Stop: 09/12/17 12:19 Last Admin: 09/12/17 12:30 Dose: 50 mcg Heparin Sodium (Porcine) (Heparin Sodium) 5,000 units SUBCUT Q12H [facility] Last Admin: 09/12/17 17:57 Dose: Not Given Multivitamins/Minerals 10 ml/Thiamine HCl 100 mg/ Folic Acid 1 mg/ Lactated Ringer's 1,011.2 mls @ 999 mls/hr IV .BOLUS ONE Stop: 09/12/17 13:09 Last Admin: 09/12/17 12:33 Dose: 999 mls/hr Sodium Chloride (Normal Saline) 1,000 mls @ 75 mls/hr IV ASDIRECTED [facility] Last Admin: 09/13/17 04:57 Dose: 75 mls/hr Methylprednisolone Sodium Succinate (Solu-Medrol) 125 mg IVPUSH ONETIME ONE Stop: 09/12/17 11:17 Last Admin: 09/12/17 11:33 Dose: 125 mg Methylprednisolone Sodium Succinate (Solu-Medrol) 60 mg IV Q8HR [facility] Last Admin: 09/12/17 17:26 Dose: 60 mg Morphine Sulfate (Morphine) 2 mg IVPUSH ONETIME STA Stop: 09/12/17 14:56 Last Admin: 09/12/17 15:02 Dose: 2 mg Ondansetron HCl (Zofran) 4 mg IV ONETIME ONE Stop: 09/12/17 11:17 Last Admin: 09/12/17 11:35 Dose: 4 mg - Exam General: Alert, Oriented HEENT: Pupils Equal Neck: Supple Lungs: Clear to Auscultation, Wheezing Cardiovascular: Regular Rate GI/Abdominal Exam: Normal Bowel Sounds Back Exam: Normal Inspection Extremities: Normal Inspection - Problem List Review Problem List Initiated/Reviewed/Updated: Yes - My Orders Last 24 Hours: My Active Orders 09/13/17 18:00 BASIC METABOLIC PANEL,BMP [CHEM] Timed 09/14/17 06:00 BMP [BASIC METABOLIC PANEL,BMP] [CHEM] Routine - Plan Plan:: #Acute hypoxic respiratory failure due to COPD exacerbation vs multiple rib fracture -Continue supplemental oxygen and wean off as tolerated -Adequate pain control -Inspiratory spirometry #COPD exacebation -This colud be due to the pain from multiple rib fracture -Duo-Nebs q4h -Methylprednisolone 60 mg IV tid -Ensure adequate pain control #Multiple non-displaced rib fractures -Pain control with percocet, add morphine for severe pain -Incentive spirometry #Alcohol intoxication -EtoH was 68 at presentation -Complete banana bag -Then continue with IVF @ 75 -monitor for alcohol withdrawal symptoms -Send for mag, phos and correct all electrolytes as needed -Fall/ Aspiration/seizure precautions. -He is advised to quit abusing alcohol #Hyponatremia -Na has improved to 130 - check BMP at 6pm and tomorrow morning #Continuous tobacco abuse -Advised to quit -Nicotine patch #Chronic back pain -Continue home medications #HTN -BP at goal -Continue Home medication -monitor BP closely #Depression -Continue home meds #Regular diet #Full code
[2017-09-13] MEDS: MELATONIN 3 MG PO SCH ×2 (15:51→21:28)
[2017-09-13] MEDS: Cyclobenzaprine 10 MG Tab PO PRN (16:28)
[2017-09-13] MEDS: Thiamine 100 MG Tab PO SCH (18:20)
[2017-09-13 18:30] LABS: ANION GAP 13.2; CHLORIDE,CL 92 mmol/L (101-111); SODIUM,NA 128 mmol/L (135-145)
[2017-09-13] MEDS: traZODone 50 MG Tab PO SCH (21:27)
[2017-09-13] MEDS: Formoterol/Mometasone 100-5 MCG 8.8 GM Inhaler IH SCH (21:28)
[2017-09-14] MEDS: Albuterol/Ipratropium 3.0-0.5 MG/3 ML Neb Soln NEB SCH ×6 (03:10→21:59)
[2017-09-14] MEDS: methylPREDNISolone Sodium Succinate 125 MG/2 ML SDV IV SCH ×3 (05:45→22:01)
[2017-09-14] MEDS: Omeprazole 20 MG Cap.CR PO SCH (05:46)
[2017-09-14 06:44] LABS: ANION GAP 10.5; CHLORIDE,CL 94 mmol/L (101-111); SODIUM,NA 133 mmol/L (135-145)
[2017-09-14] MEDS: Budesonide 0.5 MG/2 ML Neb Susp INH SCH ×2 (07:02→18:10)
[2017-09-14] MEDS: Acetaminophen/oxyCODONE 325-5 MG Tab PO PRN ×4 (07:17→20:24)
[2017-09-14] MEDS: Thiamine 100 MG Tab PO SCH (08:23)
[2017-09-14] MEDS: DULoxetine 30 MG Cap PO SCH (08:23)
[2017-09-14] MEDS: Gabapentin 400 MG Cap PO SCH ×3 (08:23→20:24)
[2017-09-14] MEDS: Nicotine 14 MG/24 Hr Patch TRDERM SCH (08:23)
[2017-09-14] MEDS: Multivitamins, Therapeutic with Minerals Tab PO SCH (08:23)
[2017-09-14] MEDS: Propranolol 10 MG Tab PO SCH ×2 (08:23→20:26)
[2017-09-14] MEDS: Heparin Sodium 5,000 Units/ML Vial SUBCUT SCH ×2 (08:23→20:26)
[2017-09-14] MEDS: Loratadine 10 MG Tab PO SCH (08:23)
[2017-09-14] MEDS: Formoterol/Mometasone 100-5 MCG 8.8 GM Inhaler IH SCH ×4 (08:24→21:42)
[2017-09-14] MEDS: cefTRIAXone 1 GM Vial IVPUSH SCH (10:17)
[2017-09-14] MEDS: amLODIPine 5 MG Tab PO SCH (10:17)
--- NOTE | 2017-09-14 11:33 | PN ---
DATE: 09/14/2017 The patient this morning is still complaining of ribcage pain and still has shortness of breath and wheezing. The patient's saturation is still dropping down into the 70s. Otherwise, he denies any other significant complaints. LABORATORY DATA: This morning, sodium is 133, potassium is 3.5, carbon dioxide is 94, and glucose is 136. OBJECTIVE: Vital Signs: Blood pressure is 170/99, pulse of 89, respirations of 20. Heart: Regular rate and rhythm. Lungs: Remarkable for rhonchi and scattered wheezing bilaterally. Breath sounds equal. Abdomen: Soft and nontender. Bowel sounds positive. Extremities: Negative for any significant pedal edema. No calf tenderness. MEDICATIONS: Reviewed. PLAN: We will continue with Solu-Medrol and we will continue with the rest of his management. I am also going to start the patient on IV antibiotics because of his COPD exacerbation and persistence of desaturation. We will also continue with incentive spirometry. [facility] /[id number]
[2017-09-14] MEDS: Docusate Sodium 100 MG Cap PO PRN (20:24)
[2017-09-14] MEDS: traZODone 50 MG Tab PO SCH (21:42)
[2017-09-14] MEDS: MELATONIN 3 MG PO SCH (21:42)
[2017-09-14] MEDS: Cyclobenzaprine 10 MG Tab PO PRN (21:47)
[2017-09-15] MEDS: Acetaminophen/oxyCODONE 325-5 MG Tab PO PRN ×5 (00:29→20:16)
[2017-09-15] MEDS: Albuterol/Ipratropium 3.0-0.5 MG/3 ML Neb Soln NEB SCH ×7 (04:32→22:01)
[2017-09-15] MEDS: methylPREDNISolone Sodium Succinate 125 MG/2 ML SDV IV SCH ×3 (06:27→21:55)
[2017-09-15] MEDS: Omeprazole 20 MG Cap.CR PO SCH (06:27)
[2017-09-15 06:59] LABS: ANION GAP 10.5; CHLORIDE,CL 95 mmol/L (101-111); SODIUM,NA 134 mmol/L (135-145)
[2017-09-15] MEDS: Budesonide 0.5 MG/2 ML Neb Susp INH SCH ×2 (07:09→18:39)
--- NOTE | 2017-09-15 08:54 | PN ---
DATE: 09/15/2017 SUBJECTIVE: The patient's blood pressure today is improving, but the patient is still complaining of shortness of breath, is still having desaturation, and is still having some cough and complains of rib cage pain. Otherwise, the patient denies any other significant ongoing complaints. LAB WORKUP: This morning, WBC is 12.3, hemoglobin is 11.2, and hematocrit is 34.2. Chem-6; sodium is 134, carbon dioxide of 33, chloride of 95, and glucose is 133. The rest of the panel unremarkable. OBJECTIVE: Vital Signs: Blood pressure is 146/86, pulse of 85, respirations of 20, and saturation is 95% on 2 L per nasal cannula. Heart: Regular rate and rhythm. Normal S1 and S2. No gallops. No rubs. Lungs: Still remarkable for rhonchi in both lung espinoza with mild expiratory wheeze. Abdomen: Soft and nontender. Bowel sounds positive. Extremities: Negative for any significant pedal edema. No calf tenderness. PLAN: Medications reviewed. We will continue with his IV antibiotics and continue with amlodipine and Solu-Medrol and the rest of his management. I am going to repeat a chest x-ray today for followup. [facility] /[id number]
[2017-09-15] MEDS: Propranolol 10 MG Tab PO SCH ×2 (08:56→20:15)
[2017-09-15] MEDS: DULoxetine 30 MG Cap PO SCH (08:56)
[2017-09-15] MEDS: Loratadine 10 MG Tab PO SCH (08:58)
[2017-09-15] MEDS: Gabapentin 400 MG Cap PO SCH ×3 (08:58→21:54)
[2017-09-15] MEDS: Multivitamins, Therapeutic with Minerals Tab PO SCH (08:58)
[2017-09-15] MEDS: amLODIPine 5 MG Tab PO SCH (08:58)
[2017-09-15] MEDS: Azithromycin 250 MG Tab PO SCH (08:58)
[2017-09-15] MEDS: Thiamine 100 MG Tab PO SCH (08:58)
[2017-09-15] MEDS: Heparin Sodium 5,000 Units/ML Vial SUBCUT SCH ×2 (08:59→21:54)
[2017-09-15] MEDS: Nicotine 14 MG/24 Hr Patch TRDERM SCH (08:59)
[2017-09-15] MEDS: Formoterol/Mometasone 100-5 MCG 8.8 GM Inhaler IH SCH ×4 (09:00→21:56)
[2017-09-15] MEDS: cefTRIAXone 1 GM Vial IVPUSH SCH (09:54)
[2017-09-15] MEDS ORDERED: amLODIPine 5 MG Tab PO ONE (17:22)
[2017-09-15] MEDS ORDERED: LORazepam 1 MG Tab PO ONE (18:51)
[2017-09-15] MEDS: Cyclobenzaprine 10 MG Tab PO PRN (20:15)
[2017-09-15] MEDS: Docusate Sodium 100 MG Cap PO PRN (20:27)
[2017-09-15] MEDS: traZODone 50 MG Tab PO SCH (21:53)
[2017-09-15] MEDS: cloNIDine 0.1 MG Tab PO SCH (21:53)
[2017-09-15] MEDS: MELATONIN 3 MG PO SCH (21:54)
[2017-09-16] MEDS: Albuterol/Ipratropium 3.0-0.5 MG/3 ML Neb Soln NEB SCH ×6 (04:17→22:41)
[2017-09-16] MEDS: methylPREDNISolone Sodium Succinate 125 MG/2 ML SDV IV SCH ×3 (06:34→21:46)
[2017-09-16] MEDS: Omeprazole 20 MG Cap.CR PO SCH (06:35)
[2017-09-16] MEDS: Budesonide 0.5 MG/2 ML Neb Susp INH SCH ×2 (07:34→18:53)
[2017-09-16] MEDS: Multivitamins, Therapeutic with Minerals Tab PO SCH (09:16)
[2017-09-16] MEDS: Gabapentin 400 MG Cap PO SCH ×3 (09:16→21:43)
[2017-09-16] MEDS: Loratadine 10 MG Tab PO SCH (09:17)
[2017-09-16] MEDS: DULoxetine 30 MG Cap PO SCH (09:17)
[2017-09-16] MEDS: Propranolol 10 MG Tab PO SCH ×2 (09:17→21:45)
[2017-09-16] MEDS: Azithromycin 250 MG Tab PO SCH (09:17)
--- NOTE | 2017-09-16 09:17 | PN ---
DATE: 09/16/2017 SUBJECTIVE: The patient's blood pressure is slowly improving as this was running elevated yesterday, and the patient's amlodipine was increased to 10 mg a day without any significant improvement. The patient was also given a dose of Ativan last night because of possibility of anxiety contributing to his elevated blood pressure, but this did not also improve, so we started him on additional clonidine 0.1 mg p.o. b.i.d., and blood pressure has been slowly improving. He is still complaining of wheezing, shortness of breath, and ribcage pain. Otherwise, he denies any other complaints. Denies any headache, abdominal pain, or any other complaints. OBJECTIVE: Vital Signs: Blood pressure is 146/92, pulse 71, respirations 20, temperature of 97, and saturation is 94% on 2 L per nasal cannula (slowly improving). Heart: Regular rate and rhythm. Normal S1 and S2. No gallops. No rubs. Lungs: Still remarkable for coarse breath sounds and scattered expiratory wheeze bilaterally. Abdomen: Soft and nontender. Bowel sounds positive. Extremities: Negative for any calf tenderness. No significant pedal edema. LABORATORY DATA: Lab workup reviewed. MEDICATIONS: Reviewed. PLAN: We will continue with his present management, and we will continue with IV antibiotics for his COPD exacerbation. ADDENDUM: Official report of the chest x-ray that was done yesterday did not show any infiltrates. [facility] /[id number]
[2017-09-16] MEDS: Thiamine 100 MG Tab PO SCH (09:18)
[2017-09-16] MEDS: amLODIPine 5 MG Tab PO SCH (09:18)
[2017-09-16] MEDS: cloNIDine 0.1 MG Tab PO SCH ×2 (09:18→21:43)
[2017-09-16] MEDS: Nicotine 14 MG/24 Hr Patch TRDERM SCH (09:19)
[2017-09-16] MEDS: Heparin Sodium 5,000 Units/ML Vial SUBCUT SCH ×2 (09:21→21:46)
[2017-09-16] MEDS: cefTRIAXone 1 GM Vial IVPUSH SCH (09:22)
[2017-09-16] MEDS: Formoterol/Mometasone 100-5 MCG 8.8 GM Inhaler IH SCH ×4 (09:23→21:45)
[2017-09-16] MEDS: Sodium Chloride 0.9% 10 ML Syringe FLUSH PRN ×3 (09:23→21:47)
[2017-09-16] MEDS: Acetaminophen/oxyCODONE 325-5 MG Tab PO PRN ×4 (09:33→22:46)
[2017-09-16] MEDS: traZODone 50 MG Tab PO SCH (21:43)
[2017-09-16] MEDS: MELATONIN 3 MG PO SCH (21:44)
[2017-09-17] MEDS: Albuterol/Ipratropium 3.0-0.5 MG/3 ML Neb Soln NEB SCH ×3 (03:04→10:25)
[2017-09-17] MEDS: methylPREDNISolone Sodium Succinate 125 MG/2 ML SDV IV SCH (06:30)
[2017-09-17] MEDS: Sodium Chloride 0.9% 10 ML Syringe FLUSH PRN (06:31)
[2017-09-17] MEDS: Omeprazole 20 MG Cap.CR PO SCH (06:31)
[2017-09-17] MEDS: Budesonide 0.5 MG/2 ML Neb Susp INH SCH (07:47)
[2017-09-17] MEDS: cloNIDine 0.1 MG Tab PO SCH (09:13)
[2017-09-17] MEDS: Loratadine 10 MG Tab PO SCH (09:13)
[2017-09-17] MEDS: Propranolol 10 MG Tab PO SCH (09:14)
[2017-09-17] MEDS: DULoxetine 30 MG Cap PO SCH (09:14)
[2017-09-17] MEDS: Thiamine 100 MG Tab PO SCH (09:14)
[2017-09-17] MEDS: Gabapentin 400 MG Cap PO SCH (09:14)
[2017-09-17] MEDS: amLODIPine 5 MG Tab PO SCH (09:15)
[2017-09-17] MEDS: Azithromycin 250 MG Tab PO SCH (09:15)
[2017-09-17] MEDS: Acetaminophen/oxyCODONE 325-5 MG Tab PO PRN (09:15)
[2017-09-17] MEDS: Multivitamins, Therapeutic with Minerals Tab PO SCH (09:15)
[2017-09-17] MEDS: Heparin Sodium 5,000 Units/ML Vial SUBCUT SCH (09:18)
[2017-09-17] MEDS: Nicotine 14 MG/24 Hr Patch TRDERM SCH (09:18)
[2017-09-17] MEDS: Formoterol/Mometasone 100-5 MCG 8.8 GM Inhaler IH SCH (09:19)
[2017-09-17] MEDS: cefTRIAXone 1 GM Vial IVPUSH SCH (09:48)
[2017-09-17] MEDS ORDERED: Pneumococcal Polyvalent-23 Vaccine 0.5 ML SDV IM ONE (10:25)
[2017-09-17 15:08] VITALS: BP 148/87
--- NOTE | 2017-09-17 18:58 | PCM.DCSUM1 ---
Discharge Summary - Hospital Course Free Text/Narrative:: 51-year-old male severe cervical myelopathy with cord compression, secondary to degenerative cervical spinal/lumbar stenosis s/p surgery in 01/2017, Chronic lower back pain, COPD, continuos alcohol and tobacco abuse, multiple falls, baseline uses walker and wheel chair for ambulation. He presented to the ER for severe pain to the right side of the chest and SOB with wheezing. He said he fell the night before admission and hit the right side of the toilet bowl and sustained pain to the right side of the chest. Patient admit he was drinking alcohol He went to bed and woke up with difficulty breathing. He reports severe pain with inspiration to the right side of the chest. SOB is associated with wheezing. He denies fever, chills, sick contact. CT [address] in the ER showed acute nondisplaced fractures of the posterolateral right 8th, 9th, 10th, & 11th ribs with small ipsilateral dependent pleural effusion, and underlying lower lobe atelectasis. She was treated for his fracture with oxycodone and for his possible COPD exacerbation and probable bronchitis with IV steroids, IV antibiotics (Rocephin and azithromycin), bronchodilator. Patient was discharged home today . His request stating that he feels back to normal. He was advised to continue Augmentin and prednisone for 5 days. His blood pressure was elevated so amlodipine and Catapres were started during hospitalization. On discharge he was advised to restart his lisinopril and continue propranolol and follow-up with primary care provider tomorrow. Patient verbalized understanding agreed with the plan - Discharge Data Discharge Date: 09/17/17 Discharge Disposition: Home, Self-Care 01 Condition: Fair - Discharge Diagnosis/Problem(s) (1) Alcohol abuse SNOMED Code(s): 69686462 ICD Code: F10.10 - ALCOHOL ABUSE, UNCOMPLICATED Status: Acute (2) COPD with acute exacerbation SNOMED Code(s): 219853062 ICD Code: J44.1 - CHRONIC OBSTRUCTIVE PULMONARY DISEASE W (ACUTE) EXACERBATION Status: Acute (3) Fracture of four ribs SNOMED Code(s): 58216251 ICD Code: S22.49XA - MULTIPLE FRACTURES OF RIBS, UNSP SIDE, INIT FOR CLOS FX Status: Acute - Discharge Plan Prescriptions/Med Rec: Acetaminophen/oxyCODONE [Percocet 325-5 MG] 2 tab PO Q4H PRN #6 tablet PRN Reason: Pain (Moderate 4-6) Albuterol/Ipratropium [DuoNeb 3.0-0.5 MG/3 ML] 3 ml .XX Q4H PRN #30 neb PRN Reason: Shortness of breath, cough Amoxicillin/Potassium Clav [Augmentin 875-125 Tablet] 1 each PO Q12H 5 Days #10 tablet Lisinopril [Prinivil] 10 mg PO DAILY #30 tab Prednisone [IJD: predniSONE] 40 mg PO WITHBREAKFAST #10 tab Home Medications: Home Meds Propranolol [Inderal] 10 mg PO BID 12/16/13 [History] Albuterol [Proventil HFA] 2 puff INH QID PRN 01/05/14 [History] Albuterol [Proventil Neb Soln] 1 ampule NEB Q6H 01/05/14 [History] Mometasone/Formoterol [Dulera 100-5 MCG] 1 puff PO QID 01/05/14 [History] Budesonide [Pulmicort] 1 vial INH BID 07/20/17 [History] Cyclobenzaprine [Flexeril] 10 mg PO DAILY PRN 07/20/17 [History] DULoxetine [Cymbalta] 60 mg PO DAILY 07/20/17 [History] Loratadine 10 mg PO DAILY 07/20/17 [History] Melatonin 3 mg PO BEDTIME 07/20/17 [History] Multivitamin B Complex + Zinc 1 tab PO DAILY 07/20/17 [History] Omeprazole 20 mg PO DAILY 07/20/17 [History] traZODone HCl [Trazodone HCl] 50 mg PO BEDTIME 07/20/17 [History] Gabapentin [Neurontin] 400 mg PO TID 09/12/17 [History] Thiamine [Vitamin B-1] 100 mg PO DAILY 09/12/17 [History] Acetaminophen [Tylenol] 650 mg PO Q4H PRN tablet 09/17/17 [Rx] Acetaminophen/oxyCODONE [Percocet 325-5 MG] 2 tab PO Q4H PRN #6 tablet 09/17/17 [Rx] Albuterol/Ipratropium [DuoNeb 3.0-0.5 MG/3 ML] 3 ml .XX Q4H PRN #30 neb [Rx] Amoxicillin/Potassium Clav [Augmentin 875-125 Tablet] 1 each PO Q12H 5 Days #10 tablet 09/17/17 [Rx] Lisinopril [Prinivil] 10 mg PO DAILY #30 tab 09/17/17 [Rx] Prednisone [IJD: predniSONE] 40 mg PO WITHBREAKFAST #10 tab 09/17/17 [Rx] Patient Handouts: Steps to Quit Smoking, [id number], Alcohol Use Disorder, Amoxicillin; Clavulanic Acid tablets, Chronic Obstructive Pulmonary Disease Exacerbation, Acetaminophen; Oxycodone tablets, Rib Fracture, Home Oxygen Use, Adult, Lisinopril tablets, Finding Treatment for Addiction, Albuterol; Ipratropium inhalation aerosol, Prednisone tablets, Amoxicillin; Clavulanic Acid extended-release tablets, Steps to Quit Smoking - General Info Date of Service: 09/17/17 Admission Dx/Problem (Free Text: Admission Diagnosis/Problem Admission Diagnosis/Problem COPD, Moderate chronic obstructive pulmonary disease Subjective Update: Patient stated that his shortness breath and cough are markedly improved. His rib pain is controlled on oxycodone. Since yesterday patient denies fever, chills, nausea, vomiting, headache, change in vision, abdominal pain, diarrhea, urinary symptoms, blood in stool, black stool, bleeding, rash, unilateral weakness/numbness/tingling or any other symptoms or concern. - Patient Data Vitals - Most Recent: Last Vital Signs Temp 36.4 C 09/17/17 12:00 Pulse 78 09/17/17 12:00 Resp 18 09/17/17 12:00 BP 148/87 H 09/17/17 12:00 Pulse Ox 93 L 09/17/17 12:00 Weight - Most Recent: 68.039 kg I&O - Last 24 hours: Intake & Output 09/17/17 09/17/17 09/17/17 06:59 14:59 22:59 Intake Total 500 360 Balance 500 360 PATRICIA Results - Last 24 hrs: Microbiology 09/12/17 11:30 Aerobic Blood Culture - Final Blood - Venous - Lab Draw NO GROWTH AFTER 5 DAYS Anaerobic Blood Culture - Final NO GROWTH AFTER 5 DAYS 09/12/17 11:26 Aerobic Blood Culture - Final Blood - Venous NO GROWTH AFTER 5 DAYS Anaerobic Blood Culture - Final NO GROWTH AFTER 5 DAYS Med Orders - Current: Current Medications Discontinued Medications Acetaminophen (Tylenol) 650 mg PO Q4H PRN PRN Reason: Pain (mild 1-3 )/fever Al Hydroxide/Mg Hydroxide (Mag-Al Plus) 30 ml PO Q4H PRN PRN Reason: Dyspepsia Albuterol (Proventil Hfa) gm INH QID PRN PRN Reason: Dyspnea Albuterol (Proventil Neb Soln) mg NEB Q4HRRT [facility] Albuterol/Ipratropium (Duoneb 3.0-0.5 Mg/3 Ml) 3 ml NEB ONETIME ONE Stop: 09/12/17 11:17 Last Admin: 09/12/17 11:33 Dose: 3 ml Albuterol/Ipratropium (Duoneb 3.0-0.5 Mg/3 Ml) 3 ml NEB Q4HRRT [facility] Last Admin: 09/17/17 10:25 Dose: 3 ml Amlodipine Besylate (Norvasc) 5 mg PO DAILY [facility] Last Admin: 09/15/17 08:58 Dose: 5 mg Amlodipine Besylate (Norvasc) 10 mg PO DAILY [facility] Last Admin: 09/17/17 09:15 Dose: 10 mg Amlodipine Besylate (Norvasc) 5 mg PO ONETIME ONE Stop: 09/15/17 17:23 Last Admin: 09/15/17 17:33 Dose: 5 mg Azithromycin (Zithromax) 250 mg PO DAILY [facility] Last Admin: 09/17/17 09:15 Dose: 250 mg Bisacodyl (Dulcolax) 10 mg RECTAL DAILY PRN PRN Reason: Constipation Last Admin: 09/16/17 20:27 Dose: 10 mg Budesonide (Pulmicort) 0.5 mg INH BIDRT [facility] Last Admin: 09/17/17 07:47 Dose: Not Given Calcium Carbonate/Glycine (Tums) 500 mg PO Q4H PRN PRN Reason: Dyspepsia Ceftriaxone Sodium (Rocephin) 1 gm IVPUSH Q24H [facility] Last Admin: 09/17/17 09:48 Dose: 1 gm Clonidine HCl (Catapres) 0.1 mg PO BID [facility] Last Admin: 09/17/17 09:13 Dose: Not Given Cyclobenzaprine HCl (Flexeril) 10 mg PO DAILY PRN PRN Reason: Muscle Spasm Last Admin: 09/15/17 20:15 Dose: 10 mg Docusate Sodium (Colace) 100 mg PO DAILY PRN PRN Reason: Constipation Last Admin: 09/15/17 20:27 Dose: 100 mg Duloxetine HCl (Cymbalta) 60 mg PO DAILY [facility] Last Admin: 09/17/17 09:14 Dose: 60 mg Fentanyl (Sublimaze) 25 mcg IVPUSH ONETIME ONE Stop: 09/12/17 11:18 Last Admin: 09/12/17 11:33 Dose: 25 mcg Fentanyl (Sublimaze) 50 mcg IVPUSH ONETIME ONE Stop: 09/12/17 12:19 Last Admin: 09/12/17 12:30 Dose: 50 mcg Gabapentin (Neurontin) 400 mg PO TID [facility] Last Admin: 09/17/17 09:14 Dose: 400 mg Heparin Sodium (Porcine) (Heparin Sodium) 5,000 units SUBCUT Q12H [facility] Last Admin: 09/12/17 17:57 Dose: Not Given Heparin Sodium (Porcine) (Heparin Sodium) 5,000 units SUBCUT Q12H [facility] Last Admin: 09/17/17 09:18 Dose: Not Given Multivitamins/Minerals 10 ml/Thiamine HCl 100 mg/ Folic Acid 1 mg/ Lactated Ringer's 1,011.2 mls @ 999 mls/hr IV .BOLUS ONE Stop: 09/12/17 13:09 Last Admin: 09/12/17 12:33 Dose: 999 mls/hr Sodium Chloride (Normal Saline) 1,000 mls @ 75 mls/hr IV ASDIRECTED [facility] Last Admin: 09/13/17 04:57 Dose: 75 mls/hr Loratadine (Claritin) 10 mg PO DAILY [facility] Last Admin: 09/17/17 09:13 Dose: 10 mg Lorazepam (Ativan) 1 mg PO ONETIME ONE Stop: 09/15/17 18:52 Last Admin: 09/15/17 19:03 Dose: 1 mg Magnesium Hydroxide (Milk Of Magnesia) 30 ml PO BID PRN PRN Reason: Constipation Last Admin: 09/15/17 20:27 Dose: 30 ml Methylprednisolone Sodium Succinate (Solu-Medrol) 125 mg IVPUSH ONETIME ONE Stop: 09/12/17 11:17 Last Admin: 09/12/17 11:33 Dose: 125 mg Methylprednisolone Sodium Succinate (Solu-Medrol) 60 mg IV Q8HR [facility] Last Admin: 09/12/17 17:26 Dose: 60 mg Methylprednisolone Sodium Succinate (Solu-Medrol) 60 mg IV Q8HR [facility] Last Admin: 09/17/17 06:30 Dose: 60 mg Mometasone Furoate/Formoterol Fumar (Dulera 100-5 Mcg) 0 puff IH QID [facility] Last Admin: 09/17/17 09:19 Dose: 1 puff Morphine Sulfate (Morphine) 2 mg IVPUSH ONETIME STA Stop: 09/12/17 14:56 Last Admin: 09/12/17 15:02 Dose: 2 mg Morphine Sulfate (Morphine) 2 mg IVPUSH Q2H PRN PRN Reason: Pain (severe 7-10) Last Admin: 09/15/17 16:17 Dose: 2 mg Multivitamins/Minerals (Vitamins And Minerals) 1 tab PO DAILY [facility] Last Admin: 09/17/17 09:15 Dose: 1 tab Nicotine (Habitrol) 14 mg TRDERM DAILY [facility] Last Admin: 09/17/17 09:18 Dose: Not Given Omeprazole (Omeprazole) 20 mg PO ACBRK [facility] Last Admin: 09/17/17 06:31 Dose: 20 mg Ondansetron HCl (Zofran) 4 mg IV ONETIME ONE Stop: 09/12/17 11:17 Last Admin: 09/12/17 11:35 Dose: 4 mg Oxycodone/Acetaminophen (Percocet 325-5 Mg) 1 tab PO Q6H PRN PRN Reason: pain Last Admin: 09/13/17 09:24 Dose: 1 tab Oxycodone/Acetaminophen (Percocet 325-5 Mg) 2 tab PO Q4H PRN PRN Reason: Pain (moderate 4-6) Last Admin: 09/17/17 09:15 Dose: 2 tab Melatonin 3 Mg Pt' (s Own Med) 0 each PO BEDTIME [facility] Last Admin: 09/16/17 21:44 Dose: 1 each Pneumococcal Polyvalent Vaccine (Pneumovax 23) 0.5 ml IM .ONCE ONE Stop: 09/17/17 10:26 Last Admin: 09/17/17 13:58 Dose: Not Given Propranolol HCl (Inderal) 10 mg PO BID [facility] Last Admin: 09/17/17 09:14 Dose: 10 mg Sodium Chloride (Saline Flush) 10 ml FLUSH ASDIRECTED PRN PRN Reason: Keep Vein Open Last Admin: 09/17/17 06:31 Dose: 10 ml Thiamine HCl (Vitamin B-1) 100 mg PO DAILY [facility] Last Admin: 09/17/17 09:14 Dose: 100 mg Trazodone HCl (Trazodone) 50 mg PO BEDTIME [facility] Last Admin: 09/16/17 21:43 Dose: 50 mg - Exam General: Reports: Alert, Oriented, Cooperative, No Acute Distress. Denies: Mild Distress, Moderate Distress, Severe Distress, Sedated, Lethargic, Obtunded HEENT: Reports: Pupils Equal, Pupils Reactive, EOMI, Mucous Membr. Moist/[place] Neck: Reports: Supple, Trachea Midline, No JVD Lungs: Reports: Normal Respiratory Effort, Decreased Breath Sounds (Globally but fair air exchange), Rhonchi (Sporadic), Wheezing (Sporadic). Denies: Crackles, Rales, Rub, Stridor Cardiovascular: Reports: Regular Rate, Regular Rhythm GI/Abdominal Exam: Normal Bowel Sounds, Soft, Non-Tender, No Organomegaly, No Distention, No Mass (Male) Exam: Deferred Rectal (Males) Exam: Deferred Back Exam: Reports: Normal Inspection, Full Range of Motion. Denies: CVA Tenderness (L), CVA Tenderness (R) Extremities: Normal Inspection, Normal Range of Motion, Non-Tender, No Pedal Edema, Normal Capillary Refill Skin: Reports: Warm, Dry, Intact Neurological: Reports: No New Focal Deficit Psy/Mental Status: Reports: Alert, Normal Affect, Normal Mood. Denies: Labile Mood, Anxious, Depressed, Agitated, Suicidal Ideation, Homicidal Ideation, Hallucinations, Withdrawal Symptoms
== END 2017-09-17 13:45 | disposition home or self-care (01) | DRG 183 ==
LOC: DL.ED 11:14 → DL.MS 13:57
PROVIDERS: ADMIT Student in an Organized Health Care Education/Training Program; ATTEND Student in an Organized Health Care Education/Training Program
DX: S22.41XA Multiple fractures of ribs, right side, initial encounter for closed fracture (principal); J96.01 Acute respiratory failure with hypoxia; F10.10 Alcohol abuse, uncomplicated; R09.02 Hypoxemia; J44.1 Chronic obstructive pulmonary disease with (acute) exacerbation; E87.1 Hypo-osmolality and hyponatremia; J98.11 Atelectasis; J91.8 Pleural effusion in other conditions classified elsewhere; W01.198A Fall on same level from slipping, tripping and stumbling with subsequent striking against other object, initial encounter; Y92.012 Bathroom of single-family (private) house as the place of occurrence of the external cause; Z91.81 History of falling; F10.129 Alcohol abuse with intoxication, unspecified; W01.10XA Fall on same level from slipping, tripping and stumbling with subsequent striking against unspecified object, initial encounter; E78.00 Pure hypercholesterolemia, unspecified; I10 Essential (primary) hypertension; K21.9 Gastro-esophageal reflux disease without esophagitis; K27.9 Peptic ulcer, site unspecified, unspecified as acute or chronic, without hemorrhage or perforation; M91.10 Juvenile osteochondrosis of head of femur [Legg-Calve-Perthes], unspecified leg; G62.9 Polyneuropathy, unspecified; F41.9 Anxiety disorder, unspecified; R07.9 Chest pain, unspecified; R07.81 Pleurodynia; R06.02 Shortness of breath; R06.2 Wheezing; F32.9 Major depressive disorder, single episode, unspecified; F17.210 Nicotine dependence, cigarettes, uncomplicated; G89.29 Other chronic pain; M54.5 Low back pain; H54.7 Unspecified visual loss; Z79.899 Other long term (current) drug therapy; Z87.01 Personal history of pneumonia (recurrent)
CPT/HCPCS: 36415; 71250; 80053; 83735; 84100; 84484; 85025; 87040 ×2; 93005 ×2; 93010; 94640; 96365; 96375; 96376; 99285 ×2; G0480; J2405; J2930; J3010 ×2; J3411; J7050; J7120; 71046; 80048; 94010; A9270-GY; J0696; J1644; J2270; J3490; J7030

== ENCOUNTER 2018-01-11 15:43 | Emergency (ER) | payer OTHER ==
[2018-01-11 16:45] VITALS: BP 109/57
--- NOTE | 2018-01-11 17:08 | EDM.PDOC ---
Scribed by Jaimie Pulido 01/11/18 [id number] for Yogesh Jimenez MD ED HPI GENERAL MEDICAL PROBLEM - General Chief Complaint: Wound Recheck Stated Complaint: REMOVE OTTO [phone] Time Seen by Provider: 01/11/18 16:50 Source of Information: Reports: Patient, RN, RN Notes Reviewed History Limitations: Reports: No Limitations - History of Present Illness INITIAL COMMENTS - FREE TEXT/NARRATIVE: Patient presents to ER for suture removal. He fell again yesterday and his head and it started bleeding. Duration: Constant Location: Reports: Head Quality: Reports: Ache Severity: Mild Improves with: Reports: None Worsens with: Reports: None Associated Symptoms: Reports: No Other Symptoms - Related Data Allergies Allergy/AdvReac Type Severity Reaction Status Date / Time No Known Allergies Allergy Verified 12/30/17 02:24 Home Meds: Home Meds Propranolol [Inderal] 10 mg PO BID 12/16/13 [History] Albuterol [Proventil HFA] 2 puff INH QID PRN 01/05/14 [History] Albuterol [Proventil Neb Soln] 1 ampule NEB Q6H 01/05/14 [History] Mometasone/Formoterol [Dulera 100-5 MCG] 1 puff PO QID 01/05/14 [History] Budesonide [Pulmicort] 1 vial INH BID 07/20/17 [History] Cyclobenzaprine [Flexeril] 10 mg PO DAILY PRN 07/20/17 [History] DULoxetine [Cymbalta] 60 mg PO DAILY 07/20/17 [History] Loratadine 10 mg PO DAILY 07/20/17 [History] Melatonin 3 mg PO BEDTIME 07/20/17 [History] Multivitamin B Complex + Zinc 1 tab PO DAILY 07/20/17 [History] Omeprazole 20 mg PO DAILY 07/20/17 [History] traZODone HCl [Trazodone HCl] 50 mg PO BEDTIME 07/20/17 [History] Gabapentin [Neurontin] 400 mg PO TID 09/12/17 [History] Thiamine [Vitamin B-1] 100 mg PO DAILY 09/12/17 [History] Acetaminophen [Tylenol] 650 mg PO Q4H PRN tablet 09/17/17 [Rx] Acetaminophen/oxyCODONE [Percocet 325-5 MG] 2 tab PO Q4H PRN #6 tablet 09/17/17 [Rx] Albuterol/Ipratropium [DuoNeb 3.0-0.5 MG/3 ML] 3 ml .XX Q4H PRN #30 neb [Rx] Amoxicillin/Potassium Clav [Augmentin 875-125 Tablet] 1 each PO Q12H 5 Days #10 tablet 09/17/17 [Rx] Lisinopril [Prinivil] 10 mg PO DAILY #30 tab 09/17/17 [Rx] Prednisone [IJD: predniSONE] 40 mg PO WITHBREAKFAST #10 tab 09/17/17 [Rx] Past Medical History - Past Health History Medical/Surgical History: Denies Medical/Surgical History HEENT History: Reports: None, Impaired Vision, Other (See Below) Other HEENT History: double vision Cardiovascular History: Reports: High Cholesterol, Hypertension Respiratory History: Reports: Asthma, Bronchitis, Recurrent, COPD, Pneumonia, Recurrent, SOB, Other (See Below) Gastrointestinal History: Reports: GERD, PUD Genitourinary History: Reports: None Musculoskeletal History: Reports: Fracture, Other (See Below) Other Musculoskeletal History: PERTHES DISEASE, CARPAL TUNNEL SYNDROME BILATERALLY Neurological History: Reports: Neuropathy, Peripheral, Other (See Below) 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 Psychiatric History: Reports: Addiction, Anxiety, Depression Hematologic History: Reports: None Immunologic History: Reports: None Oncologic (Cancer) History: Reports: None Dermatologic History: Reports: None - Infectious Disease History Infectious Disease History: Reports: Chicken Pox - Past Surgical History Head Surgeries/Procedures: Reports: None HEENT Surgical History: Reports: None Respiratory Surgical History: Reports: Other (See Below) Other Respiratory Surgeries/Procedures: bronch GI Surgical History: Reports: EGD Endocrine Surgical History: Reports: None Social & Family History - Family History Family Medical History: Noncontributory Respiratory: Reports: COPD Endocrine/Metabolic: Reports: Diabetes, type II Oncologic: Reports: Lung - Caffeine Use Caffeine Use: Reports: None - Living Situation & Occupation Living situation: Reports: with Family Occupation: Unemployed ED ROS GENERAL - Review of Systems Review Of Systems: ROS reveals no pertinent complaints other than HPI. ED EXAM, SKIN/RASH Exam: See Below Exam Limited By: No Limitations General Appearance: Alert, No Apparent Distress, Other (chronically ill appearing) Eye Exam: Bilateral Eye: Normal Inspection Nose: Normal Inspection, Normal Mucosa, No Blood Throat/Mouth: Normal Inspection, Normal Voice, No Airway Compromise Head: Normocephalic, Other (scalp laceration left posterior with sutures intact. Mild soft tissue swelling with small amounts of purulent drainage, mildly tender, no regional lymphadenopathy. ) Neck: Normal Inspection, Supple, Non-Tender, Full Range of Motion Respiratory/Chest: No Respiratory Distress Cardiovascular: Regular Rate, Rhythm Neurological: Alert, Oriented, No Motor/Sensory Deficits Psychiatric: Normal Mood Course - Vital Signs Last Recorded V/S: Last Vital Signs Temp 36.6 C 01/11/18 16:44 Pulse 85 01/11/18 16:44 Resp 15 01/11/18 16:44 BP 109/57 L 01/11/18 16:44 Pulse Ox 94 L 01/11/18 16:44 - Re-Assessments/Exams Free Text/Narrative Re-Assessment/Exam: 01/11/18 17:07 Sutures removed by RN. Departure - Departure Time of Disposition: 16:56 Disposition: Home, Self-Care 01 Condition: Good Clinical Impression: Visit for suture removal, Wound infection, posttraumatic Scalp laceration Qualifiers: Encounter type: subsequent encounter Qualified Code(s): S01.01XD - Laceration without foreign body of scalp, subsequent encounter - Discharge Information Instructions: Wound Infection, [id number], Suture Removal, Care After Referrals: Tamara Alejandra MD [Primary Care Provider] - Forms: ED Department Discharge Additional Instructions: Rx: Cephalexin 500mg Follow up in clinic next week for scalp wound recheck. I have read and agree with the documentation that has been completed regarding this visit. By signing this record, I attest that the documentation was completed in my physical presence and is an accurate record of the encounter.
== END 2018-01-11 17:02 | disposition home or self-care (01) ==
LOC: DL.ED 15:43
DX: S01.01XD Laceration without foreign body of scalp, subsequent encounter (principal); X58.XXXD Exposure to other specified factors, subsequent encounter; I10 Essential (primary) hypertension; Z79.899 Other long term (current) drug therapy
CPT/HCPCS: 99281; 99283

== ENCOUNTER 2019-12-25 15:53 | Emergency (ER) | payer OTHER ==
[2019-12-25 16:06] VITALS: BP 103/68; PULSE 110
--- NOTE | 2019-12-25 16:11 | EDM.PDOC ---
ED HPI GENERAL MEDICAL PROBLEM - General Stated Complaint: SOB Time Seen by Provider: 12/25/19 15:58 Source of Information: Reports: Patient History Limitations: Reports: No Limitations - History of Present Illness INITIAL COMMENTS - FREE TEXT/NARRATIVE: This 54 yo male patient was brought to the ED by [facility] due to shortness of breath. EMS reports the patient's lips were initially blue upon arrival at the scene with an oxygen saturation of 84%. The patient was placed on oxygen which increased his oxygen level to 98% while enroute. The patient reports he has a history of COPD and continues to smoke. The patient reports his tested positive for Coronavirus and he was tested in [facility] on Sunday, but has not received his results at this time. The patient reports he normally has a difficult time breathing when he gets up. The patient reports that he just got up before coming to the ED. Onset: Unknown/Unsure Duration: Constant Location: Reports: Chest Improves with: Reports: Medication Worsens with: Reports: Movement Context: Reports: Other Associated Symptoms: Reports: Cough (chronic), Shortness of Breath - Related Data Allergies Allergy/AdvReac Type Severity Reaction Status Date / Time No Known Allergies Allergy Verified 12/30/17 02:24 Home Meds: Home Meds Propranolol [Inderal] 10 mg PO BID 12/16/13 [History] Albuterol [Proventil HFA] 2 puff INH QID PRN 01/05/14 [History] Albuterol [Proventil Neb Soln] 1 ampule NEB Q6H 01/05/14 [History] Mometasone/Formoterol [Dulera 100-5 MCG] 1 puff PO QID 01/05/14 [History] Budesonide [Pulmicort] 1 vial INH BID 07/20/17 [History] Cyclobenzaprine [Flexeril] 10 mg PO DAILY PRN 07/20/17 [History] DULoxetine [Cymbalta] 60 mg PO DAILY 07/20/17 [History] Loratadine 10 mg PO DAILY 07/20/17 [History] Melatonin 3 mg PO BEDTIME 07/20/17 [History] Multivitamin B Complex + Zinc 1 tab PO DAILY 07/20/17 [History] Omeprazole 20 mg PO DAILY 07/20/17 [History] traZODone HCl [Trazodone HCl] 50 mg PO BEDTIME 07/20/17 [History] Gabapentin [Neurontin] 400 mg PO TID 09/12/17 [History] Thiamine [Vitamin B-1] 100 mg PO DAILY 09/12/17 [History] Acetaminophen [Tylenol] 650 mg PO Q4H PRN tablet 09/17/17 [Rx] Acetaminophen/oxyCODONE [Percocet 325-5 MG] 2 tab PO Q4H PRN #6 tablet 09/17/17 [Rx] Albuterol/Ipratropium [DuoNeb 3.0-0.5 MG/3 ML] 3 ml .XX Q4H PRN #30 neb 09/17/17 [Rx] Amoxicillin/Potassium Clav [Augmentin 875-125 Tablet] 1 each PO Q12H 5 Days #10 tablet 09/17/17 [Rx] Prednisone [IJD: predniSONE] 40 mg PO WITHBREAKFAST #10 tab 09/17/17 [Rx] lisinopriL [Prinivil] 10 mg PO DAILY #30 tab 09/17/17 [Rx] Past Medical History - Past Health History Medical/Surgical History: Denies Medical/Surgical History HEENT History: Reports: None, Impaired Vision, Other (See Below) Other HEENT History: double vision Cardiovascular History: Reports: High Cholesterol, Hypertension Respiratory History: Reports: Asthma, Bronchitis, Recurrent, COPD, Pneumonia, Recurrent, SOB, Other (See Below) Gastrointestinal History: Reports: GERD, PUD Genitourinary History: Reports: None Musculoskeletal History: Reports: Fracture, Other (See Below) Other Musculoskeletal History: PERTHES DISEASE, CARPAL TUNNEL SYNDROME BILATERALLY Neurological History: Reports: Neuropathy, Peripheral, Other (See Below) 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 Psychiatric History: Reports: Addiction, Anxiety, Depression Hematologic History: Reports: None Immunologic History: Reports: None Oncologic (Cancer) History: Reports: None Dermatologic History: Reports: None - Infectious Disease History Infectious Disease History: Reports: Chicken Pox - Past Surgical History Head Surgeries/Procedures: Reports: None HEENT Surgical History: Reports: None Respiratory Surgical History: Reports: Other (See Below) Other Respiratory Surgeries/Procedures: bronch GI Surgical History: Reports: EGD Endocrine Surgical History: Reports: None Social & Family History - Family History Family Medical History: Noncontributory Respiratory: Reports: COPD Endocrine/Metabolic: Reports: Diabetes, type II Oncologic: Reports: Lung - Caffeine Use Caffeine Use: Reports: None - Living Situation & Occupation Living situation: Reports: with Family Occupation: Unemployed ED ROS GENERAL - Review of Systems Review Of Systems: Comprehensive ROS is negative, except as noted in HPI. ED EXAM, GENERAL - Physical Exam Exam: See Below Exam Limited By: No Limitations General Appearance: Alert, WD/WN, Moderate Distress, Thin Eye Exam: Bilateral Eye: EOMI, Normal Inspection, PERRL Ears: Normal External Exam, Normal Canal, Hearing Grossly Normal, Normal TMs Nose: Normal Inspection, Normal Mucosa, No Blood Throat/Mouth: Normal Inspection, Normal Lips, Normal Teeth, Normal Gums, Normal Oropharynx, Normal Voice, No Airway Compromise Head: Atraumatic, Normocephalic Neck: Normal Inspection, Supple, Non-Tender, Full Range of Motion Respiratory/Chest: Decreased Breath Sounds, Rhonchi (diffuse) Cardiovascular: Normal Peripheral Pulses, Regular Rate, Rhythm, No Edema, No Gallop, No JVD, No Murmur, No Rub GI/Abdominal: Normal Bowel Sounds, Soft, Non-Tender, No Organomegaly, No Distention, No Abnormal Bruit, No Mass (Male) Exam: Deferred Rectal (Males) Exam: Deferred Back Exam: Normal Inspection, Full Range of Motion, NT Extremities: Normal Inspection, Normal Range of Motion, Non-Tender, Normal Capillary Refill, No Pedal Edema Neurological: Alert, Oriented, CN II-XII Intact, Normal Cognition, Normal Gait, Normal Reflexes, No Motor/Sensory Deficits Psychiatric: Normal Affect, Normal Mood Skin Exam: Warm, Dry, Intact, Normal Color, No Rash Lymphatic: No Adenopathy Course - Vital Signs Last Recorded V/S: Last Vital Signs Temp 37.0 C 12/25/19 16:04 Pulse 110 H 12/25/19 16:04 Resp 22 H 12/25/19 16:04 BP 103/68 12/25/19 16:04 Pulse Ox 100 12/25/19 16:04 - Orders/Labs/Meds Orders: Active Orders 24 hr Category Date Time Status EKG Documentation Completion [RC] STAT Care 12/25/19 15:54 Active CULTURE BLOOD [BC] Stat Lab 12/25/19 16:08 Received Labs: Laboratory Tests 12/25/19 12/25/19 12/25/19 Range/Units 16:08 16:08 16:08 WBC 7.7 (5.0-10.0) 10^3/uL RBC 4.24 L (4.6-6.2) 10^6/uL Hgb 14.0 D (14.0-18.0) g/dL Hct 39.3 L (40.0-54.0) % MCV 92.7 (80-100) fL MCH 33.0 (27.0-34.0) pg MCHC 35.6 H (33.0-35.0) g/dL Plt Count 111 L D (150-450) 10^3/uL Neut % (Auto) 69.9 (42.2-75.2) % Lymph % (Auto) 18.9 L (20.5-50.1) % [place] % (Auto) 8.4 H (2-8) % Eos % (Auto) 2.3 (1.0-3.0) % Baso % (Auto) 0.5 (0.0-1.0) % D-Dimer, Quantitative 157 (0-400) ng/mL Sodium 133 L (136-145) mmol/L Potassium 3.5 (3.5-5.1) mmol/L Chloride 94 L (98-107) mmol/L Carbon Dioxide 34 H (21-32) mmol/L Anion Gap 8.5 (7-13) mEq/L BUN 3 L (7-18) mg/dL Creatinine 0.45 L (0.70-1.30) mg/dL Est Cr Clr Drug Dosing 150.66 mL/min Estimated GFR (MDRD) > 60 BUN/Creatinine Ratio 6.7 (No establ ref range) Glucose 82 (74-99) mg/dL Lactic Acid (0.4-2.0) mmol/L Calcium 7.7 L (8.5-10.1) mg/dL Total Bilirubin 0.6 (0.2-1.0) mg/dL AST 167 H (15-37) U/L ALT 36 (16-63) U/L Alkaline Phosphatase 352 H (46-116) U/L Troponin I < 0.017 (0.000-0.056) ng/mL Total Protein 6.1 L (6.4-8.2) g/dL Albumin 2.5 L (3.4-5.0) g/dL Globulin 3.6 Albumin/Globulin Ratio 0.69 COVID-19 ([facility]IN) (NEGATIVE) 12/25/19 12/25/19 Range/Units 16:08 16:10 WBC (5.0-10.0) 10^3/uL RBC (4.6-6.2) 10^6/uL Hgb (14.0-18.0) g/dL Hct (40.0-54.0) % MCV (80-100) fL MCH (27.0-34.0) pg MCHC (33.0-35.0) g/dL Plt Count (150-450) 10^3/uL Neut % (Auto) (42.2-75.2) % Lymph % (Auto) (20.5-50.1) % [place] % (Auto) (2-8) % Eos % (Auto) (1.0-3.0) % Baso % (Auto) (0.0-1.0) % D-Dimer, Quantitative (0-400) ng/mL Sodium (136-145) mmol/L Potassium (3.5-5.1) mmol/L Chloride (98-107) mmol/L Carbon Dioxide (21-32) mmol/L Anion Gap (7-13) mEq/L BUN (7-18) mg/dL Creatinine (0.70-1.30) mg/dL Est Cr Clr Drug Dosing mL/min Estimated GFR (MDRD) BUN/Creatinine Ratio (No establ ref range) Glucose (74-99) mg/dL Lactic Acid 0.9 (0.4-2.0) mmol/L Calcium (8.5-10.1) mg/dL Total Bilirubin (0.2-1.0) mg/dL AST (15-37) U/L ALT (16-63) U/L Alkaline Phosphatase (46-116) U/L Troponin I (0.000-0.056) ng/mL Total Protein (6.4-8.2) g/dL Albumin (3.4-5.0) g/dL Globulin Albumin/Globulin Ratio COVID-19 ([facility]ARIN) Positive H (NEGATIVE) Meds: Medications Discontinued Medications Generic Name Dose Route Start Last Admin Trade Name Freq PRN Reason Stop Dose Admin Methylprednisolone Sodium Succinate 125 mg 12/25/19 17:12 12/25/19 17:16 Solu-Medrol IVPUSH 12/25/19 17:13 125 mg ONETIME ONE Administration Departure - Departure Time of Disposition: 17:24 Disposition: Home, Self-Care 01 Condition: Fair Clinical Impression: COVID-19 - Discharge Information *PRESCRIPTION DRUG MONITORING PROGRAM REVIEWED*: Not Applicable *COPY OF PRESCRIPTION DRUG MONITORING REPORT IN PATIENT SALVADOR: Not Applicable Instructions: COVID-19: How to Protect Yourself and Others - CDC, Prevent the Spread of COVID-19 if You Are Sick - [facility] Care Plan Goals: The patient was advised of the examination, lab, EKG and CT results during the visit. The patient was given an IV dose of SoluMedrol during the visit. The patient was discharged with a script for Prednisone (20 mg) #14 to take 2 by mouth daily. The patient should use his home medications as prescribed. The patient was advised to go home and isolate himself (no visitors to the house). If the patient has any additional symptoms or concerns, the patient should either return to the emergency department or visit his primary care facility. Sepsis Event Note (ED) - Focused Exam Vital Signs: Vital Signs Temp Pulse Resp BP Pulse Ox 12/25/19 16:04 37.0 C 110 H 22 H 103/68 100 - My Orders Last 24 Hours: My Active Orders 12/25/19 15:54 EKG Documentation Completion [RC] STAT 12/25/19 16:08 CULTURE BLOOD [BC] Stat - Assessment/Plan Last 24 Hours: My Active Orders 12/25/19 15:54 EKG Documentation Completion [RC] STAT 12/25/19 16:08 CULTURE BLOOD [BC] Stat
[2019-12-25 16:36] LABS: ANION GAP 8.5 mEq/L (7-13); CHLORIDE,CL 94 mmol/L (98-107); SODIUM,NA 133 mmol/L (136-145)
--- NOTE | 2019-12-25 16:56 | CT ---
PROCEDURE INFORMATION: Exam: CT Chest Without Contrast Exam date and time: 12/25/2019 4:49 PM Age: 54 years old Clinical indication: Shortness of breath; Additional info: Short of breath TECHNIQUE: Imaging protocol: Computed tomography of the chest without contrast. Radiation optimization: All CT scans at this facility use at least one of these dose optimization techniques: automated exposure control; mA and/or kV adjustment per patient size (includes targeted exams where dose is matched to clinical indication); or iterative reconstruction. COMPARISON: CT Chest wo Cont 09/12/2017 11:42 AM FINDINGS: Lungs: Minimal scarring or atelectasis in the right lower lung with chronic elevation of the right hemidiaphragm. This was present on prior study dated 09/12/2017 and has remained stable. Pleural space: No acute infiltrate or effusion. Heart: Unremarkable. No cardiomegaly. No pericardial effusion. Aorta: Unremarkable. No aortic aneurysm. Lymph nodes: Unremarkable. No enlarged lymph nodes. Bones/joints: Multiple old well healed right-sided rib fractures are noted. No acute fracture. Soft tissues: Unremarkable. IMPRESSION: 1. Minimal scarring or atelectasis in the right lower lung with chronic elevation of the right hemidiaphragm. This was present on prior study dated 09/12/2017 and has remained stable. 2. No acute infiltrate or effusion.
[2019-12-25] MEDS ORDERED: methylPREDNISolone Sodium Succinate 125 MG/2 ML SDV IVPUSH ONE (17:12)
== END 2019-12-25 17:50 | disposition home or self-care (01) ==
LOC: DL.ED 15:53
DX: U07.1 COVID-19 (principal); I10 Essential (primary) hypertension; J44.9 Chronic obstructive pulmonary disease, unspecified; K21.9 Gastro-esophageal reflux disease without esophagitis; G62.9 Polyneuropathy, unspecified; F41.9 Anxiety disorder, unspecified; F32.9 Major depressive disorder, single episode, unspecified; G56.00 Carpal tunnel syndrome, unspecified upper limb; Z79.899 Other long term (current) drug therapy
CPT/HCPCS: 36415; 71250; 80053; 83605; 84484; 85025; 85379; 87040; 87635; 93005; 96374; 99283; 99285; J2930; U0002

== ENCOUNTER 2020-03-01 14:15 | Emergency (ER) | payer MEDICARE, MEDICAID ==
[2020-03-01] MEDS ORDERED: Sodium Chloride 0.9% 10 ML Syringe FLUSH PRN (14:58)
--- NOTE | 2020-03-01 15:00 | EDM.PDOC ---
ED HPI GENERAL MEDICAL PROBLEM - General Chief Complaint: Respiratory Problem Stated Complaint: abnormal labs abd pain Time Seen by Provider: 03/01/20 14:50 Source of Information: Reports: Patient History Limitations: Reports: No Limitations - History of Present Illness INITIAL COMMENTS - FREE TEXT/NARRATIVE: Patient comes emergency department today by ambulance from home with complaints of abnormal lab values that he was notified of. This patient was called by the [facility] clinic earlier in the day and told that he had some abnormal lab values and should go to the emergency department right away. This patient went to the [facility] clinic just a couple of days ago for evaluation of epigastric pain. This patient wakes every morning for the past 4 to 5 days and he has a churning painful sensation in his epigastric region in the morning that radiates to his back. This resolves eventually on his own. He is a daily alcoholic drinker who drinks about 30 beers a day. He has been weaned off of his 30 beers a day over the past couple of weeks and has not had any alcohol for the past 3 to 4 days. This patient was COVID positive in November. He lost his in December to COVID as w sunshine. He has had a 35 to 40 pound weight loss in the past 3 months unintentionally. He just does not have an appetite to eat. He does not drink much for fluids. Today he really complains of just some generalized malaise and fatigue and weakness. No fever no chills. He does have a history of COPD and his cough is at baseline. No increased shortness of breath. No chest pain. No syncope. No palpitations. No fever no chills. No abdominal pain nausea or vomiting. He does relate that his stools are rather different in nature orange in color and decreased urinary output. - Related Data Allergies Allergy/AdvReac Type Severity Reaction Status Date / Time No Known Allergies Allergy Verified 12/30/17 02:24 Home Meds: Home Meds Propranolol [Inderal] 10 mg PO BID 12/16/13 [History] Albuterol [Proventil HFA] 2 puff INH QID PRN 01/05/14 [History] Albuterol [Proventil Neb Soln] 1 ampule NEB Q6H 01/05/14 [History] Mometasone/Formoterol [Dulera 100-5 MCG] 1 puff PO QID 01/05/14 [History] Budesonide [Pulmicort] 1 vial INH BID 07/20/17 [History] Cyclobenzaprine [Flexeril] 10 mg PO DAILY PRN 07/20/17 [History] DULoxetine [Cymbalta] 60 mg PO DAILY 07/20/17 [History] Loratadine 10 mg PO DAILY 07/20/17 [History] Melatonin 3 mg PO BEDTIME 07/20/17 [History] Multivitamin B Complex + Zinc 1 tab PO DAILY 07/20/17 [History] Omeprazole 20 mg PO DAILY 07/20/17 [History] traZODone HCl [Trazodone HCl] 50 mg PO BEDTIME 07/20/17 [History] Gabapentin [Neurontin] 400 mg PO TID 09/12/17 [History] Thiamine [Vitamin B-1] 100 mg PO DAILY 09/12/17 [History] Acetaminophen [Tylenol] 650 mg PO Q4H PRN tablet 09/17/17 [Rx] Acetaminophen/oxyCODONE [Percocet 325-5 MG] 2 tab PO Q4H PRN #6 tablet 09/17/17 [Rx] Albuterol/Ipratropium [DuoNeb 3.0-0.5 MG/3 ML] 3 ml .XX Q4H PRN #30 neb 09/17/17 [Rx] Amoxicillin/Potassium Clav [Augmentin 875-125 Tablet] 1 each PO Q12H 5 Days #10 tablet 09/17/17 [Rx] Prednisone [IJD: predniSONE] 40 mg PO WITHBREAKFAST #10 tab 09/17/17 [Rx] lisinopriL [Prinivil] 10 mg PO DAILY #30 tab 09/17/17 [Rx] Past Medical History - Past Health History Medical/Surgical History: Denies Medical/Surgical History HEENT History: Reports: None, Impaired Vision, Other (See Below) Other HEENT History: double vision Cardiovascular History: Reports: High Cholesterol, Hypertension Respiratory History: Reports: Asthma, Bronchitis, Recurrent, COPD, Pneumonia, Recurrent, SOB, Other (See Below) Gastrointestinal History: Reports: GERD, PUD Genitourinary History: Reports: None Musculoskeletal History: Reports: Fracture, Other (See Below) Other Musculoskeletal History: PERTHES DISEASE, CARPAL TUNNEL SYNDROME BILATERALLY Neurological History: Reports: Neuropathy, Peripheral, Other (See Below) 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 Psychiatric History: Reports: Addiction, Anxiety, Depression Endocrine/Metabolic History: Reports: None Hematologic History: Reports: None Immunologic History: Reports: None Oncologic (Cancer) History: Reports: None Dermatologic History: Reports: None - Infectious Disease History Infectious Disease History: Reports: Chicken Pox - Past Surgical History Head Surgeries/Procedures: Reports: None HEENT Surgical History: Reports: None Respiratory Surgical History: Reports: Other (See Below) Other Respiratory Surgeries/Procedures: bronch GI Surgical History: Reports: EGD Endocrine Surgical History: Reports: None Social & Family History - Family History Family Medical History: Noncontributory Respiratory: Reports: COPD Endocrine/Metabolic: Reports: Diabetes, type II Oncologic: Reports: Lung - Caffeine Use Caffeine Use: Reports: Coffee - Living Situation & Occupation Living situation: Reports: with Family Occupation: Unemployed ED ROS GENERAL - Review of Systems Review Of Systems: Comprehensive ROS is negative, except as noted in HPI. ED EXAM, GENERAL - Physical Exam Exam: See Below Exam Limited By: No Limitations General Appearance: Alert, WD/WN, No Apparent Distress, Cachetic Eye Exam: Bilateral Eye: PERRL Ears: Normal External Exam Nose: Normal Inspection Throat/Mouth: Normal Inspection Head: Atraumatic, Normocephalic Neck: Normal Inspection, Supple Respiratory/Chest: No Respiratory Distress, Lungs Clear, Normal Breath Sounds, No Accessory Muscle Use, Chest Non-Tender Cardiovascular: Normal Peripheral Pulses, Regular Rate, Rhythm, No Edema, No Murmur Peripheral Pulses: 2+: Radial (L), Radial (R), Posterior Tibial (L), Posterior Tibial (R), Dorsalis Pedis (L), Dorsalis Pedis (R) GI/Abdominal: Normal Bowel Sounds, Soft, Non-Tender, No Organomegaly, No Distention, No Abnormal Bruit (Male) Exam: Deferred Rectal (Males) Exam: Deferred Back Exam: Normal Inspection, Full Range of Motion. No: CVA Tenderness (L), CVA Tenderness (R) Extremities: Normal Inspection, Normal Range of Motion, Normal Capillary Refill Neurological: Alert, Oriented, Normal Cognition, No Motor/Sensory Deficits Psychiatric: Normal Affect, Normal Mood Skin Exam: Warm, Dry, Intact, Normal Color Lymphatic: No Adenopathy Course - Vital Signs Last Recorded V/S: Last Vital Signs Temp 100.0 F 03/01/20 21:20 Pulse 113 H 03/01/20 21:20 Resp 16 03/01/20 21:20 BP 105/68 03/01/20 21:20 Pulse Ox 90 L 03/01/20 21:20 - Orders/Labs/Meds Orders: Active Orders 24 hr Category Date Time Status CULTURE URINE [RM] Stat Lab 03/01/20 19:30 Received Peripheral IV Insertion Adult [OM.PC] Stat Oth 03/01/20 14:58 Ordered Labs: Laboratory Tests 03/01/20 03/01/20 03/01/20 Range/Units 15:11 15:11 15:11 WBC 7.3 (5.0-10.0) 10^3/uL RBC 4.38 L (4.6-6.2) 10^6/uL Hgb 14.5 (14.0-18.0) g/dL Hct 42.0 (40.0-54.0) % MCV 95.9 D (80-100) fL MCH 33.1 (27.0-34.0) pg MCHC 34.5 (33.0-35.0) g/dL Plt Count 283 D (150-450) 10^3/uL Neut % (Auto) 53.0 (42.2-75.2) % Lymph % (Auto) 29.7 (20.5-50.1) % Giles % (Auto) 12.2 H (2-8) % Eos % (Auto) 3.3 H (1.0-3.0) % Baso % (Auto) 1.8 H (0.0-1.0) % PT (9.0-12.0) SEC INR (0.9-1.2) APTT (22.0-34.0) SEC Sodium 136 (136-145) mmol/L Potassium 3.2 L (3.5-5.1) mmol/L Chloride 94 L (98-107) mmol/L Carbon Dioxide 36 H (21-32) mmol/L Anion Gap 9.2 (7-13) mEq/L BUN 2 L (7-18) mg/dL Creatinine 0.53 L (0.70-1.30) mg/dL Est Cr Clr Drug Dosing TNP Estimated GFR (MDRD) > 60 BUN/Creatinine Ratio 3.8 (No establ ref range) Glucose 87 (74-99) mg/dL Lactic Acid 1.0 (0.4-2.0) mmol/L Calcium 8.4 L (8.5-10.1) mg/dL Total Bilirubin 0.8 (0.2-1.0) mg/dL AST 72 H (15-37) U/L ALT 25 (16-63) U/L Alkaline Phosphatase 147 H (46-116) U/L Ammonia (11-32) umol/L Troponin I 0.166 H* (0.000-0.056) ng/mL C-Reactive Protein 2.4 H (0.0-0.9) mg/dL Total Protein 6.3 L (6.4-8.2) g/dL Albumin 2.4 L (3.4-5.0) g/dL Globulin 3.9 Albumin/Globulin Ratio 0.62 Lipase 24 L (73-393) U/L Urine Color (YELLOW) Urine Appearance (CLEAR) Urine pH (5.0-9.0) Ur Specific [place] (1.005-1.030) Urine Protein (NEGATIVE) Urine Glucose (UA) (NEGATIVE) Urine Ketones (NEGATIVE) Urine Occult Blood (NEGATIVE) Urine Nitrite (NEGATIVE) Urine Bilirubin (NEGATIVE) Urine Urobilinogen (0.2-1.0) mg/dL Ur Leukocyte Esterase (NEGATIVE) Urine RBC /HPF Urine WBC (0-5/HPF) /HPF Ur Epithelial Cells (NOT SEEN) /HPF Amorphous Sediment (NOT SEEN) /HPF Urine Bacteria (0-FEW/HPF) /HPF Urine Mucus (NOT SEEN) /LPF 03/01/20 03/01/20 03/01/20 Range/Units 15:11 15:11 19:30 WBC (5.0-10.0) 10^3/uL RBC (4.6-6.2) 10^6/uL Hgb (14.0-18.0) g/dL Hct (40.0-54.0) % MCV (80-100) fL MCH (27.0-34.0) pg MCHC (33.0-35.0) g/dL Plt Count (150-450) 10^3/uL Neut % (Auto) (42.2-75.2) % Lymph % (Auto) (20.5-50.1) % Giles % (Auto) (2-8) % Eos % (Auto) (1.0-3.0) % Baso % (Auto) (0.0-1.0) % PT 10.4 (9.0-12.0) SEC INR 1.1 (0.9-1.2) APTT 23.6 (22.0-34.0) SEC Sodium (136-145) mmol/L Potassium (3.5-5.1) mmol/L Chloride (98-107) mmol/L Carbon Dioxide (21-32) mmol/L Anion Gap (7-13) mEq/L BUN (7-18) mg/dL Creatinine (0.70-1.30) mg/dL Est Cr Clr Drug Dosing Estimated GFR (MDRD) BUN/Creatinine Ratio (No establ ref range) Glucose (74-99) mg/dL Lactic Acid (0.4-2.0) mmol/L Calcium (8.5-10.1) mg/dL Total Bilirubin (0.2-1.0) mg/dL AST (15-37) U/L ALT (16-63) U/L Alkaline Phosphatase (46-116) U/L Ammonia 16 (11-32) umol/L Troponin I (0.000-0.056) ng/mL C-Reactive Protein (0.0-0.9) mg/dL Total Protein (6.4-8.2) g/dL Albumin (3.4-5.0) g/dL Globulin Albumin/Globulin Ratio Lipase (73-393) U/L Urine Color Yellow (YELLOW) Urine Appearance Slightly cloudy (CLEAR) Urine pH 7.0 (5.0-9.0) Ur Specific [place] 1.020 (1.005-1.030) Urine Protein Negative (NEGATIVE) Urine Glucose (UA) Negative (NEGATIVE) Urine Ketones 40 H (NEGATIVE) Urine Occult Blood Negative (NEGATIVE) Urine Nitrite Negative (NEGATIVE) Urine Bilirubin Small H (NEGATIVE) Urine Urobilinogen 2.0 H (0.2-1.0) mg/dL Ur Leukocyte Esterase Trace H (NEGATIVE) Urine RBC 0-5 /HPF Urine WBC 75-100 H (0-5/HPF) /HPF Ur Epithelial Cells Rare (NOT SEEN) /HPF Amorphous Sediment Few (NOT SEEN) /HPF Urine Bacteria Occasional (0-FEW/HPF) /HPF Urine Mucus Occasional (NOT SEEN) /LPF 03/01/20 Range/Units 19:43 WBC (5.0-10.0) 10^3/uL RBC (4.6-6.2) 10^6/uL Hgb (14.0-18.0) g/dL Hct (40.0-54.0) % MCV (80-100) fL MCH (27.0-34.0) pg MCHC (33.0-35.0) g/dL Plt Count (150-450) 10^3/uL Neut % (Auto) (42.2-75.2) % Lymph % (Auto) (20.5-50.1) % Giles % (Auto) (2-8) % Eos % (Auto) (1.0-3.0) % Baso % (Auto) (0.0-1.0) % PT (9.0-12.0) SEC INR (0.9-1.2) APTT (22.0-34.0) SEC Sodium (136-145) mmol/L Potassium (3.5-5.1) mmol/L Chloride (98-107) mmol/L Carbon Dioxide (21-32) mmol/L Anion Gap (7-13) mEq/L BUN (7-18) mg/dL Creatinine (0.70-1.30) mg/dL Est Cr Clr Drug Dosing Estimated GFR (MDRD) BUN/Creatinine Ratio (No establ ref range) Glucose (74-99) mg/dL Lactic Acid (0.4-2.0) mmol/L Calcium (8.5-10.1) mg/dL Total Bilirubin (0.2-1.0) mg/dL AST (15-37) U/L ALT (16-63) U/L Alkaline Phosphatase (46-116) U/L Ammonia (11-32) umol/L Troponin I 0.121 H* (0.000-0.056) ng/mL C-Reactive Protein (0.0-0.9) mg/dL Total Protein (6.4-8.2) g/dL Albumin (3.4-5.0) g/dL Globulin Albumin/Globulin Ratio Lipase (73-393) U/L Urine Color (YELLOW) Urine Appearance (CLEAR) Urine pH (5.0-9.0) Ur Specific [place] (1.005-1.030) Urine Protein (NEGATIVE) Urine Glucose (UA) (NEGATIVE) Urine Ketones (NEGATIVE) Urine Occult Blood (NEGATIVE) Urine Nitrite (NEGATIVE) Urine Bilirubin (NEGATIVE) Urine Urobilinogen (0.2-1.0) mg/dL Ur Leukocyte Esterase (NEGATIVE) Urine RBC /HPF Urine WBC (0-5/HPF) /HPF Ur Epithelial Cells (NOT SEEN) /HPF Amorphous Sediment (NOT SEEN) /HPF Urine Bacteria (0-FEW/HPF) /HPF Urine Mucus (NOT SEEN) /LPF Meds: Medications Discontinued Medications Generic Name Dose Route Start Last Admin Trade Name Freq PRN Reason Stop Dose Admin Aspirin 324 mg 03/01/20 16:38 03/01/20 17:12 Aspirin PO 03/01/20 16:39 324 mg ONETIME ONE Administration Lactated Ringer's 1,000 mls @ 1,000 mls/hr 03/01/20 15:23 03/01/20 15:34 Ringers, Lactated IV 03/01/20 16:22 1,000 mls/hr .BOLUS ONE Administration Lactated Ringer's 1,000 mls @ 250 mls/hr 03/01/20 17:24 03/01/20 18:26 Ringers, Lactated IV 03/01/20 21:23 250 mls/hr .BOLUS ONE Administration Sodium Chloride 10 ml 03/01/20 14:58 03/01/20 15:34 Saline Flush FLUSH 10 ml ASDIRECTED PRN Administration Keep Vein Open - Radiology Interpretation Free Text/Narrative:: Chest x-ray per radiology shows no acute new cardiopulmonary abnormality. Multiple old healed rib fractures. No hemopneumothorax. - Re-Assessments/Exams Free Text/Narrative Re-Assessment/Exam: lAbs are drawn. 1 L LR wide open. EKG with normal sinus rhythm without ST elevation or depression when reviewed extemporaneously by myself. CBC rather unremarkable. Chest x-ray no new acute cardiopulmonary abnormality. Patient's troponin is mildly elevated at 0.166. He is given 324 of aspirin orally. He does not have any chest pain. His lactic acid is normal. He is unable to give a urine sample at this time. We continued IV hydration. Elevated troponin and my concern for the weight loss of the change in his stools I called and spoke with Dr. Cordero at [facility] in [place]. [facility] are not accepting patients at this time. HPI ER course findings and concerns were relayed to Dr. Cordero at this time especially the unexplained weight loss change in stools and his elevated troponin. He does not want him heparinized at this time. He accepted the patient in transfer to [place]. Of a delay in transfer as there are multiple patients who need to be transferred much further due to the recent hospitals that are quite full. We will put him on extended stay ER on the floor. And continue his hydration. We will repeat his troponin. Troponin repeat shows an improved troponin at 0.121. He continues not to have any chest pain. The patient eventually was transferred many hours later by ambulance to [facility] in [place]. He voided just prior to the ambulance departure. It was noted on his urine sample that he had quite elevated you WBCs. We will add a urine culture. In [place] was updated that he has a urinary tract infection and has not been treated for it as his results were not received until after he was transferred. Departure - Departure Time of Disposition: 16:50 Disposition: DC/Tfer to Acute Hospital 02 Clinical Impression: Cachexia, Elevated troponin UTI (urinary tract infection) Qualifiers: Urinary tract infection type: site unspecified Hematuria presence: without hematuria Qualified Code(s): N39.0 - Urinary tract infection, site not specified - Discharge Information Referrals: PCP,None [Primary Care Provider] - Forms: ED Department Discharge Sepsis Event Note (ED) - Focused Exam Vital Signs: Vital Signs Temp Pulse Resp BP Pulse Ox 03/01/20 21:20 100.0 F 113 H 16 105/68 90 L - My Orders Last 24 Hours: My Active Orders 03/01/20 14:58 Peripheral IV Insertion Adult [OM.PC] Stat 03/01/20 19:30 CULTURE URINE [RM] Stat - Assessment/Plan Last 24 Hours: My Active Orders 03/01/20 14:58 Peripheral IV Insertion Adult [OM.PC] Stat 03/01/20 19:30 CULTURE URINE [RM] Stat
[2020-03-01] MEDS ORDERED: Lactated Ringers 1,000 ML IV ONE ×2 (15:23→17:24)
[2020-03-01 15:39] LABS: ANION GAP 9.2 mEq/L (7-13); CHLORIDE,CL 94 mmol/L (98-107); SODIUM,NA 136 mmol/L (136-145)
--- NOTE | 2020-03-01 15:39 | CR ---
EXAMINATION: Chest 1V Frontal SEX: Male AGE: 54 years CLINICAL HISTORY: 54-year-old male with COUGH AND WEAKNESS reported on [address] exam of the chest to have "scarring/atelectasis right lower lung and asymmetric elevation right hemidiaphragm" unchanged since 12 September 2017. Interpretation: (Upright AP portable chest) ABNORMAL. Multiple RIB FRACTURES with callus (old healed) i.e. posterior lateral right 4, 5, 7, 8; lateral left 3, 4, 7, 8. Chronic asymmetric elevation right hemidiaphragm with underlying lower lobe atelectasis. Normal cardiac silhouette. No new pulmonary vascular congestion, cephalization of flow, alveolar edema or dependent pleural fluid accumulation. (Linear, tubular supraclavicular foreign body on the right) No lung mass or hilar lymphadenopathy. No new lobar pneumonia when compared to exam of 15 September 2017. No pneumothorax or pneumomediastinum. CONCLUSION: No acute new cardiopulmonary abnormality. Multiple old healed rib fractures, bilaterally.
[2020-03-01] MEDS ORDERED: Aspirin 81 MG Tab.Chew PO ONE (16:38)
[2020-03-01 17:53] LABS: PTT,PARTIAL THROMBOPLSTIN TIME 23.6 SEC (22.0-34.0)
[2020-03-01 21:39] VITALS: BP 105/68; PULSE 113
== END 2020-03-01 21:29 ==
LOC: DL.ED 14:15
DX: N39.0 Urinary tract infection, site not specified (principal); R64 Cachexia; R79.89 Other specified abnormal findings of blood chemistry; I10 Essential (primary) hypertension; J44.9 Chronic obstructive pulmonary disease, unspecified; K21.9 Gastro-esophageal reflux disease without esophagitis; F32.9 Major depressive disorder, single episode, unspecified; F41.9 Anxiety disorder, unspecified; Z68.21 Body mass index [BMI] 21.0-21.9, adult; Z79.899 Other long term (current) drug therapy
CPT/HCPCS: 36415; 71045; 80053; 81001; 82140; 83605; 83690; 84484; 85025; 85610; 85730; 86140; 87086; 93005; 96360; 96361; 99285; A9270; J7120; 99284

== ENCOUNTER 2020-07-22 04:46 | Emergency (ER) | payer MEDICARE, MEDICAID ==
[2020-07-22] MEDS ORDERED: Orphenadrine 60 MG/2 ML Inj IM ONE (05:01)
[2020-07-22] MEDS ORDERED: fentaNYL 100 MCG/2 ML SDV IVPUSH ONE (05:02)
--- NOTE | 2020-07-22 05:09 | EDM.PDOC ---
<Debbi Daugherty - Last Filed: 07/22/20 06:09> ED HPI GENERAL MEDICAL PROBLEM - General Chief Complaint: Lower Extremity Injury/Pain Stated Complaint: ambulance Time Seen by Provider: 07/22/20 04:55 Source of Information: Reports: Patient, EMS, RN History Limitations: Reports: Other (patient poor historian) - History of Present Illness INITIAL COMMENTS - FREE TEXT/NARRATIVE: ED via [facility] with report of sever bilateral leg pain with spasms. Reports happens nightly , tonight worse and won't stop. Initial report wheel chair dependent. Next stating he walked more than usual yesterday. Generally only tolerates standing for periods long enough to do dishes. Unable to give reasoning for weakness .Denied hx of back injury, remote ankle fracture. Current smoker with hx frequent pneumonia, COVID this summer. Reports ETOH use one time per month, No recent fall. States he can't concentrate on question due to pain with spasms of legs. Bilateral Middle Leg Pain Score (Numeric/FACES): 8 - Related Data Allergies Allergy/AdvReac Type Severity Reaction Status Date / Time No Known Allergies Allergy Verified 07/22/20 04:55 Home Meds: Home Meds DULoxetine [Cymbalta] 60 mg PO DAILY 07/20/17 [History] Omeprazole 20 mg PO DAILY 07/20/17 [History] Acetaminophen [Tylenol] 650 mg PO Q4H PRN tablet 09/17/17 [Rx] Albuterol/Ipratropium [DuoNeb 3.0-0.5 MG/3 ML] 3 ml .XX Q4H PRN #30 neb 09/17/17 [Rx] Fluticasone Propion/Salmeterol [Wixela 500-50 Inhub] 1 each IH ASDIRECTED 07/22/20 [History] Tiotropium [place] [Spiriva Respimat] 1 inh INH DAILY 07/22/20 [History] Past Medical History - Past Health History Medical/Surgical History: Denies Medical/Surgical History HEENT History: Reports: None, Impaired Vision, Other (See Below) Other HEENT History: double vision Cardiovascular History: Reports: High Cholesterol, Hypertension Respiratory History: Reports: Asthma, Bronchitis, Recurrent, COPD, Pneumonia, Recurrent, SOB, Other (See Below) Gastrointestinal History: Reports: GERD, PUD Genitourinary History: Reports: None Musculoskeletal History: Reports: Fracture, Other (See Below) Other Musculoskeletal History: PERTHES DISEASE, CARPAL TUNNEL SYNDROME BILATERALLY Neurological History: Reports: Neuropathy, Peripheral, Other (See Below) 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 Psychiatric History: Reports: Addiction, Anxiety, Depression Endocrine/Metabolic History: Reports: None Hematologic History: Reports: None Immunologic History: Reports: None Oncologic (Cancer) History: Reports: None Dermatologic History: Reports: None - Infectious Disease History Infectious Disease History: Reports: Chicken Pox - Past Surgical History Head Surgeries/Procedures: Reports: None HEENT Surgical History: Reports: None Respiratory Surgical History: Reports: Other (See Below) Other Respiratory Surgeries/Procedures: bronch GI Surgical History: Reports: EGD Endocrine Surgical History: Reports: None Social & Family History - Family History Family Medical History: No Pertinent Family History Respiratory: Reports: COPD Endocrine/Metabolic: Reports: Diabetes, type II Oncologic: Reports: Lung - Caffeine Use Caffeine Use: Reports: Coffee - Living Situation & Occupation Living situation: Reports: with Family Occupation: Unemployed Review of Systems - Review of Systems Review Of Systems: Comprehensive ROS is negative, except as noted in HPI. ED EXAM, GENERAL - Physical Exam Exam: See Below Exam Limited By: No Limitations General Appearance: Alert, Anxious, Moderate Distress, Thin Eye Exam: Bilateral Eye: EOMI Ears: Normal External Exam, Hearing Grossly Normal Nose: Normal Inspection Throat/Mouth: Normal Inspection Head: Atraumatic, Normocephalic Neck: Full Range of Motion Respiratory/Chest: Decreased Breath Sounds (bases), Wheezing (left lower clears with cough) Cardiovascular: Normal Peripheral Pulses, Regular Rate, Rhythm GI/Abdominal: Normal Bowel Sounds, Soft Extremities: Other (bilateral spasms lower extremities. ) Neurological: Alert, Oriented, Inattentive Skin Exam: Warm, Dry, Intact, Normal Color Course - Re-Assessments/Exams Free Text/Narrative Re-Assessment/Exam: 07/22/20 06:09 Notes some improvement in spasms Departure - Departure Disposition: Home, Self-Care 01 Clinical Impression: Muscle spasm of right lower extremity, Muscle spasm of left lower extremity, Hypomagnesemia, Tobacco dependence due to cigarettes - Discharge Information Instructions: Muscle Cramps and Spasms, [id number], Hypomagnesemia Forms: ED Department Discharge Additional Instructions: Make an appointment today to follow up with your primary care provider for recheck of labs and to be restarted on Gabapentin. <Suha Ramos - Last Filed: 07/22/20 09:08> Course - Vital Signs Last Recorded V/S: Last Vital Signs Temp 97.8 F 07/22/20 05:59 Pulse 101 H 07/22/20 05:59 Resp 18 07/22/20 05:59 BP 127/65 07/22/20 05:59 Pulse Ox 98 07/22/20 05:59 - Orders/Labs/Meds Orders: Active Orders 24 hr Category Date Time Status EKG Documentation Completion [RC] STAT Care 07/22/20 08:23 Active Labs: Laboratory Tests 07/22/20 07/22/20 07/22/20 Range/Units 05:11 05:11 06:14 WBC 12.2 H (5.0-10.0) 10^3/uL RBC 5.07 (4.6-6.2) 10^6/uL Hgb 15.1 (14.0-18.0) g/dL Hct 42.5 (40.0-54.0) % MCV 83.8 D (80-100) fL MCH 29.8 (27.0-34.0) pg MCHC 35.5 H (33.0-35.0) g/dL Plt Count 289 (150-450) 10^3/uL Neut % (Auto) 62.8 (42.2-75.2) % Lymph % (Auto) 24.6 (20.5-50.1) % [place] % (Auto) 9.1 H (2-8) % Eos % (Auto) 2.7 (1.0-3.0) % Baso % (Auto) 0.8 (0.0-1.0) % Sodium 132 L (136-145) mmol/L Potassium 3.7 (3.5-5.1) mmol/L Chloride 92 L (98-107) mmol/L Carbon Dioxide 29 (21-32) mmol/L Anion Gap 14.7 H (7-13) mEq/L BUN 10 (7-18) mg/dL Creatinine 0.52 L (0.70-1.30) mg/dL Est Cr Clr Drug Dosing 139.24 mL/min Estimated GFR (MDRD) > 60 BUN/Creatinine Ratio 19.2 (No establ ref range) Glucose 80 (74-99) mg/dL Calcium 8.7 (8.5-10.1) mg/dL Magnesium 1.3 L (1.8-2.4) mg/dL Total Bilirubin 0.5 (0.2-1.0) mg/dL AST 24 (15-37) U/L ALT 23 (16-63) U/L Alkaline Phosphatase 100 (46-116) U/L Troponin I (0.000-0.056) ng/mL Total Protein 7.1 (6.4-8.2) g/dL Albumin 3.8 (3.4-5.0) g/dL Globulin 3.3 Albumin/Globulin Ratio 1.2 Urine Color Yellow (YELLOW) Urine Appearance Clear (CLEAR) Urine pH 6.5 (5.0-9.0) Ur Specific [place] 1.020 (1.005-1.030) Urine Protein Negative (NEGATIVE) Urine Glucose (UA) Negative (NEGATIVE) Urine Ketones 15 H (NEGATIVE) Urine Occult Blood Negative (NEGATIVE) Urine Nitrite Negative (NEGATIVE) Urine Bilirubin Negative (NEGATIVE) Urine Urobilinogen 1.0 (0.2-1.0) mg/dL Ur Leukocyte Esterase Negative (NEGATIVE) Urine Opiates Screen (NEGATIVE) Ur Oxycodone Screen (NEGATIVE) Urine Methadone Screen (NEGATIVE) Ur Barbiturates Screen (NEGATIVE) U Tricyclic Antidepress (NEGATIVE) Ur Phencyclidine Scrn (NEGATIVE) Ur Amphetamine Screen (NEGATIVE) U Methamphetamines Scrn (NEGATIVE) Urine MDMA Screen (NEGATIVE) U Benzodiazepines Scrn (NEGATIVE) Urine Cocaine Screen (NEGATIVE) U Marijuana (THC) Screen (NEGATIVE) Ethyl Alcohol < 3 (0) mg/dL 07/22/20 07/22/20 Range/Units 06:14 08:33 WBC (5.0-10.0) 10^3/uL RBC (4.6-6.2) 10^6/uL Hgb (14.0-18.0) g/dL Hct (40.0-54.0) % MCV (80-100) fL MCH (27.0-34.0) pg MCHC (33.0-35.0) g/dL Plt Count (150-450) 10^3/uL Neut % (Auto) (42.2-75.2) % Lymph % (Auto) (20.5-50.1) % [place] % (Auto) (2-8) % Eos % (Auto) (1.0-3.0) % Baso % (Auto) (0.0-1.0) % Sodium (136-145) mmol/L Potassium (3.5-5.1) mmol/L Chloride (98-107) mmol/L Carbon Dioxide (21-32) mmol/L Anion Gap (7-13) mEq/L BUN (7-18) mg/dL Creatinine (0.70-1.30) mg/dL Est Cr Clr Drug Dosing mL/min Estimated GFR (MDRD) BUN/Creatinine Ratio (No establ ref range) Glucose (74-99) mg/dL Calcium (8.5-10.1) mg/dL Magnesium (1.8-2.4) mg/dL Total Bilirubin (0.2-1.0) mg/dL AST (15-37) U/L ALT (16-63) U/L Alkaline Phosphatase (46-116) U/L Troponin I < 0.017 (0.000-0.056) ng/mL Total Protein (6.4-8.2) g/dL Albumin (3.4-5.0) g/dL Globulin Albumin/Globulin Ratio Urine Color (YELLOW) Urine Appearance (CLEAR) Urine pH (5.0-9.0) Ur Specific [place] (1.005-1.030) Urine Protein (NEGATIVE) Urine Glucose (UA) (NEGATIVE) Urine Ketones (NEGATIVE) Urine Occult Blood (NEGATIVE) Urine Nitrite (NEGATIVE) Urine Bilirubin (NEGATIVE) Urine Urobilinogen (0.2-1.0) mg/dL Ur Leukocyte Esterase (NEGATIVE) Urine Opiates Screen Positive H (NEGATIVE) Ur Oxycodone Screen Negative (NEGATIVE) Urine Methadone Screen Positive H (NEGATIVE) Ur Barbiturates Screen Negative (NEGATIVE) U Tricyclic Antidepress Negative (NEGATIVE) Ur Phencyclidine Scrn Negative (NEGATIVE) Ur Amphetamine Screen Negative (NEGATIVE) U Methamphetamines Scrn Negative (NEGATIVE) Urine MDMA Screen Negative (NEGATIVE) U Benzodiazepines Scrn Negative (NEGATIVE) Urine Cocaine Screen Negative (NEGATIVE) U Marijuana (THC) Screen Negative (NEGATIVE) Ethyl Alcohol (0) mg/dL Meds: Medications Discontinued Medications Generic Name Dose Route Start Last Admin Trade Name Freq PRN Reason Stop Dose Admin Fentanyl 25 mcg 07/22/20 05:02 07/22/20 05:20 Sublimaze IVPUSH 07/22/20 05:03 25 mcg ONETIME ONE Administration Magnesium Sulfate/Dextrose 1 100 mls @ 100 mls/hr 07/22/20 06:04 07/22/20 06:09 gm/ Premix IV 07/22/20 07:03 100 mls/hr ONETIME ONE Administration Magnesium Sulfate/Dextrose 1 100 mls @ 100 mls/hr 07/22/20 07:22 07/22/20 07:56 gm/ Premix IV 07/22/20 08:21 100 mls/hr ONETIME ONE Administration Orphenadrine Citrate 60 mg 07/22/20 05:01 07/22/20 05:18 Norflex IM 07/22/20 05:02 60 mg ONETIME ONE Administration - Radiology Interpretation Free Text/Narrative:: Head CT wo contrast: PROCEDURE INFORMATION: Exam: CT Head Without Contrast Exam date and time: 07/22/2020 7:27 AM Age: 54 years old Clinical indication: Altered mental status/memory loss TECHNIQUE: Imaging protocol: Computed tomography of the head without contrast. Radiation optimization: All CT scans at this facility use at least one of these dose optimization techniques: automated exposure control; mA and/or kV adjustment per patient size (includes targeted exams where dose is matched to clinical indication); or iterative reconstruction. COMPARISON: CT Head wo Cont 12/30/2017 3:11 AM FINDINGS: Brain: Patchy lucencies in the white matter are nonspecific but most suggestive of chronic microvascular ischemic disease. These are fairly similar. There is no evidence for large acute cortical infarct. No intracranial hemorrhage or extraaxial collection is identified. There is no significant intracranial mass effect. Cerebral ventricles: The ventricles and sulci are stable in configuration, with similar atrophy. Bones/joints: Unremarkable. No acute fracture. Paranasal sinuses: Mild chronic mucosal disease involves the left sphenoid sinus. The visualized paranasal sinuses and air cells are otherwise clear. Mastoid air cells: Visualized mastoid air cells are well aerated. Vasculature: Intracranial atherosclerotic vascular calcifications are again present. Soft tissues: Unremarkable. IMPRESSION: No CT evidence for acute intracranial abnormality. While there is no CT evidence for acute infarct, MRI would be more sensitive in this regard if clinically indicated. COMMENTS: Early cerebral infarct may be CT occult in the first 12 hours. Thank you for allowing us to participate in the care of your patient. Dictated and Authenticated by: Hamilton Taylor MD 07/22/2020 7:51 AM Central Time ([place] & [place]) See rad report Departure - Departure Time of Disposition: 09:08 Condition: Fair - Discharge Information *PRESCRIPTION DRUG MONITORING PROGRAM REVIEWED*: No *COPY OF PRESCRIPTION DRUG MONITORING REPORT IN PATIENT SALVADOR: No Sepsis Event Note (ED) - Focused Exam Vital Signs: Vital Signs Temp Pulse Resp BP Pulse Ox 07/22/20 05:59 97.8 F 101 H 18 127/65 98 07/22/20 05:03 97.5 F 90 20 130/81 96 - My Orders Last 24 Hours: My Active Orders 07/22/20 08:23 EKG Documentation Completion [RC] STAT - Assessment/Plan Last 24 Hours: My Active Orders 07/22/20 08:23 EKG Documentation Completion [RC] STAT
[2020-07-22 05:36] LABS: ANION GAP 14.7 mEq/L (7-13); CHLORIDE,CL 92 mmol/L (98-107); SODIUM,NA 132 mmol/L (136-145)
[2020-07-22 06:00] VITALS: BP 127/65; PULSE 101
[2020-07-22 06:26] LABS: MDMA (ECSTASY), URINE NEGATIVE (NEGATIVE); METHADONE,URINE POSITIVE (NEGATIVE); METHAMPHETAMINES,URINE NEGATIVE (NEGATIVE); OPIATES,URINE POSITIVE (NEGATIVE)
[2020-07-22 06:27] LABS: AMPHETAMINES,URINE NEGATIVE (NEGATIVE); BARBITURATES,URINE NEGATIVE (NEGATIVE); BENZODIAZEPINE,URINE NEGATIVE (NEGATIVE); OXYCODONE,URINE NEGATIVE (NEGATIVE); PHENCYCLIDINE,URINE NEGATIVE (NEGATIVE); TCA,URINE NEGATIVE (NEGATIVE)
--- NOTE | 2020-07-22 07:51 | CT ---
PROCEDURE INFORMATION: Exam: CT Head Without Contrast Exam date and time: 07/22/2020 7:27 AM Age: 54 years old Clinical indication: Altered mental status/memory loss TECHNIQUE: Imaging protocol: Computed tomography of the head without contrast. Radiation optimization: All CT scans at this facility use at least one of these dose optimization techniques: automated exposure control; mA and/or kV adjustment per patient size (includes targeted exams where dose is matched to clinical indication); or iterative reconstruction. COMPARISON: CT Head wo Cont 12/30/2017 3:11 AM FINDINGS: Brain: Patchy lucencies in the white matter are nonspecific but most suggestive of chronic microvascular ischemic disease. These are fairly similar. There is no evidence for large acute cortical infarct. No intracranial hemorrhage or extraaxial collection is identified. There is no significant intracranial mass effect. Cerebral ventricles: The ventricles and sulci are stable in configuration, with similar atrophy. Bones/joints: Unremarkable. No acute fracture. Paranasal sinuses: Mild chronic mucosal disease involves the left sphenoid sinus. The visualized paranasal sinuses and air cells are otherwise clear. Mastoid air cells: Visualized mastoid air cells are well aerated. Vasculature: Intracranial atherosclerotic vascular calcifications are again present. Soft tissues: Unremarkable. IMPRESSION: No CT evidence for acute intracranial abnormality. While there is no CT evidence for acute infarct, MRI would be more sensitive in this regard if clinically indicated. COMMENTS: Early cerebral infarct may be CT occult in the first 12 hours.
== END 2020-07-22 09:32 | disposition home or self-care (01) ==
LOC: DL.ED 04:46
DX: M62.838 Other muscle spasm (principal); E83.42 Hypomagnesemia; F17.210 Nicotine dependence, cigarettes, uncomplicated; I10 Essential (primary) hypertension; J44.9 Chronic obstructive pulmonary disease, unspecified; K21.9 Gastro-esophageal reflux disease without esophagitis; G62.9 Polyneuropathy, unspecified; Z79.899 Other long term (current) drug therapy
CPT/HCPCS: 36415; 70450; 80053; 80305; 80307; 81003; 83735; 84484; 85025; 93005; 96365; 96366; 96372; 96375; 99285; J2360; J3010; J3475; 99284

== ENCOUNTER 2020-09-15 04:57 | Emergency (ER) | payer MEDICARE, MEDICAID ==
[2020-09-15 04:54] VITALS: BP 110/72; PULSE 104
[~2020-09-15 04:57] MED LIST: Aspirin 81 MG Tab.Chew PO ONE
--- NOTE | 2020-09-15 05:02 | EDM.PDOC ---
<FrancoisElliott Chandrakant - Last Filed: 09/15/20 05:33> ED HPI GENERAL MEDICAL PROBLEM - General Time Seen by Provider: 09/15/20 04:48 Source of Information: Reports: Patient History Limitations: Reports: No Limitations - History of Present Illness INITIAL COMMENTS - FREE TEXT/NARRATIVE: This 54 yo male patient was brought to the ED by [facility] due to chest pain. The patient reports he normally drinks some beer, goes to sleep, wakes up and drinks some more beer. The patient reports he normally drinks 20-30 beers per day. Today, the patient reports he woke up at about 0350 when he noticed he had some chest pain. The patient reports his chest pain was a pressure and rated his pain at a 4-5/10. The patient also reports he could "feel his heartbeat" through his chest during the episode. The patient reports he called the ambulance and by the time the ambulance got to his home his chest pain was gone. EMS transported the patient to the ED with no reoccurrence of his chest pain. The patient denies any chest pain at the time of the examination. The patient does have a history of a heart attack with an elevated Troponin level. The patient also reports a history of acid reflux. The patient reports he does take his medications as prescribed except he does not take aspirin due to his ex- advising him not to take aspirin. Onset: Today Duration: Resolved Prior to Arrival Location: Reports: Chest Quality: Reports: Ache, Dull Severity: Moderate Improves with: Reports: None Worsens with: Reports: None Context: Reports: Other Associated Symptoms: Reports: Chest Pain - Related Data Allergies Allergy/AdvReac Type Severity Reaction Status Date / Time No Known Allergies Allergy Verified 09/15/20 04:56 Home Meds: Home Meds DULoxetine [Cymbalta] 60 mg PO DAILY 07/20/17 [History] Omeprazole 20 mg PO DAILY 07/20/17 [History] Acetaminophen [Tylenol] 650 mg PO Q4H PRN tablet 09/17/17 [Rx] Albuterol/Ipratropium [DuoNeb 3.0-0.5 MG/3 ML] 3 ml .XX Q4H PRN #30 neb 09/17/17 [Rx] Fluticasone Propion/Salmeterol [Wixela 500-50 Inhub] 1 each IH ASDIRECTED 07/22/20 [History] Tiotropium [place] [Spiriva Respimat] 1 inh INH DAILY 07/22/20 [History] Past Medical History - Past Health History Medical/Surgical History: Denies Medical/Surgical History HEENT History: Reports: None, Impaired Vision, Other (See Below) Other HEENT History: double vision Cardiovascular History: Reports: High Cholesterol, Hypertension Respiratory History: Reports: Asthma, Bronchitis, Recurrent, COPD, Pneumonia, Recurrent, SOB, Other (See Below) Gastrointestinal History: Reports: GERD, PUD Genitourinary History: Reports: None Musculoskeletal History: Reports: Fracture, Other (See Below) Other Musculoskeletal History: PERTHES DISEASE, CARPAL TUNNEL SYNDROME BILATERALLY Neurological History: Reports: Neuropathy, Peripheral, Other (See Below) 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 Psychiatric History: Reports: Addiction, Anxiety, Depression Endocrine/Metabolic History: Reports: None Hematologic History: Reports: None Immunologic History: Reports: None Oncologic (Cancer) History: Reports: None Dermatologic History: Reports: None - Infectious Disease History Infectious Disease History: Reports: Chicken Pox Social & Family History - Family History Family Medical History: No Pertinent Family History Respiratory: Reports: COPD Endocrine/Metabolic: Reports: Diabetes, type II Oncologic: Reports: Lung - Caffeine Use Caffeine Use: Reports: Coffee - Living Situation & Occupation Living situation: Reports: with Family Occupation: Unemployed ED ROS GENERAL - Review of Systems Review Of Systems: Comprehensive ROS is negative, except as noted in HPI. ED EXAM, GENERAL - Physical Exam Exam: See Below Exam Limited By: No Limitations General Appearance: Alert, WD/WN, Anxious, Mild Distress Eye Exam: Bilateral Eye: EOMI, Normal Inspection, PERRL Ears: Normal External Exam, Normal Canal, Hearing Grossly Normal, Normal TMs Nose: Normal Inspection, Normal Mucosa, No Blood Throat/Mouth: Normal Inspection, Normal Lips, Normal Teeth, Normal Gums, Normal Oropharynx, Normal Voice, No Airway Compromise Head: Atraumatic, Normocephalic Neck: Normal Inspection, Supple, Non-Tender, Full Range of Motion Respiratory/Chest: No Respiratory Distress, Lungs Clear, Normal Breath Sounds, No Accessory Muscle Use, Chest Non-Tender Cardiovascular: Normal Peripheral Pulses, Regular Rate, Rhythm, No Edema, No Gallop, No JVD, No Murmur, No Rub GI/Abdominal: Normal Bowel Sounds, Soft, Non-Tender, No Organomegaly, No Distention, No Abnormal Bruit, No Mass (Male) Exam: Deferred Rectal (Males) Exam: Deferred Back Exam: Normal Inspection, Full Range of Motion, NT Extremities: Normal Inspection, Normal Range of Motion, Non-Tender, Normal Capillary Refill, No Pedal Edema Neurological: Alert, Oriented, CN II-XII Intact, Normal Cognition, Normal Gait, Normal Reflexes, No Motor/Sensory Deficits Psychiatric: Normal Affect, Normal Mood Skin Exam: Warm, Dry, Intact, Normal Color, No Rash Lymphatic: No Adenopathy #1 Interpretation EKG Date: 09/15/20 Time: 04:40 Rhythm: Other (Sinus Tach) Rate (Beats/Min): 103 [place]: Normal P-Wave: Present QRS: Normal ST-T: Normal QT: Normal Comparison: No Change Course - Re-Assessments/Exams Free Text/Narrative Re-Assessment/Exam: 09/15/20 05:33 The patient was advised of the examination, lab, EKG and x-ray results. The patient was given IV fluids and IV potassium. The patient will be observed for a repeat EKG and repeat Troponin scheduled at 0900. Departure - Departure Disposition: Home, Self-Care 01 Clinical Impression: Nonspecific chest pain, Hyponatremia Instructions: Nonspecific Chest Pain, Adult, [id number], Hyponatremia, [id number] Forms: ED Department Discharge Additional Instructions: Drink gatorade/powerade May drink Chicken broth as well for sodium Take all medications as prescribed Follow up with your primary care facility Sepsis Event Note (ED) - Evaluation Sepsis Screening Result: No Definite Risk <Suha Ramos - Last Filed: 09/15/20 09:52> Course - Vital Signs Last Recorded V/S: Last Vital Signs Temp 98.6 F 09/15/20 04:51 Pulse 104 H 09/15/20 04:51 Resp 20 09/15/20 04:51 BP 110/72 09/15/20 04:51 Pulse Ox 93 L 09/15/20 04:51 - Orders/Labs/Meds Orders: Active Orders 24 hr Category Date Time Status EKG Documentation Completion [RC] ASDIRECTED Care 09/15/20 09:00 Active EKG Documentation Completion [RC] STAT Care 09/15/20 04:37 Active Labs: Laboratory Tests 04/09/15/20 09/15/20 Range/Units 04:47 04:47 04:47 WBC 5.9 (5.0-10.0) 10^3/uL RBC 5.33 (4.6-6.2) 10^6/uL Hgb 16.4 (14.0-18.0) g/dL Hct 45.8 (40.0-54.0) % MCV 85.9 (80-100) fL MCH 30.8 (27.0-34.0) pg MCHC 35.8 H (33.0-35.0) g/dL Plt Count 99 L D (150-450) 10^3/uL Neut % (Auto) 54.7 (42.2-75.2) % Lymph % (Auto) 33.8 (20.5-50.1) % [place] % (Auto) 9.1 H (2-8) % Eos % (Auto) 1.7 (1.0-3.0) % Baso % (Auto) 0.7 (0.0-1.0) % PT 10.3 (9.0-12.0) SEC INR 1.0 (0.9-1.2) D-Dimer, Quantitative 268 (0-400) ng/mL Sodium 121 L D (136-145) mmol/L Potassium 3.0 L (3.5-5.1) mmol/L Chloride 81 L (98-107) mmol/L Carbon Dioxide 33 H (21-32) mmol/L Anion Gap 10.0 (7-13) mEq/L BUN 5 L (7-18) mg/dL Creatinine 0.53 L (0.70-1.30) mg/dL Est Cr Clr Drug Dosing 114.79 mL/min Estimated GFR (MDRD) > 60 BUN/Creatinine Ratio 9.4 (No establ ref range) Glucose 94 (70-99) mg/dL Calcium 8.5 (8.5-10.1) mg/dL Total Bilirubin 0.8 (0.2-1.0) mg/dL AST 235 H (15-37) U/L ALT 122 H (16-63) U/L Alkaline Phosphatase 145 H (46-116) U/L Troponin I < 0.017 (0.000-0.056) ng/mL Total Protein 6.9 (6.4-8.2) g/dL Albumin 3.5 (3.4-5.0) g/dL Globulin 3.4 Albumin/Globulin Ratio 1.0 Urine Color (YELLOW) Urine Appearance (CLEAR) Urine pH (5.0-9.0) Ur Specific [place] (1.005-1.030) Urine Protein (NEGATIVE) Urine Glucose (UA) (NEGATIVE) Urine Ketones (NEGATIVE) Urine Occult Blood (NEGATIVE) Urine Nitrite (NEGATIVE) Urine Bilirubin (NEGATIVE) Urine Urobilinogen (0.2-1.0) mg/dL Ur Leukocyte Esterase (NEGATIVE) Salicylates (2.8-20(Therapeutic)) mg/dL Urine Opiates Screen (NEGATIVE) Ur Oxycodone Screen (NEGATIVE) Urine Methadone Screen (NEGATIVE) Acetaminophen 0 L (10-30 (Therapeutic)) ug/mL Ur Barbiturates Screen (NEGATIVE) U Tricyclic Antidepress (NEGATIVE) Ur Phencyclidine Scrn (NEGATIVE) Ur Amphetamine Screen (NEGATIVE) U Methamphetamines Scrn (NEGATIVE) Urine MDMA Screen (NEGATIVE) U Benzodiazepines Scrn (NEGATIVE) Urine Cocaine Screen (NEGATIVE) U Marijuana (THC) Screen (NEGATIVE) Ethyl Alcohol 205 (0) mg/dL 09/15/20 09/15/20 09/15/20 Range/Units 04:47 06:38 06:38 WBC (5.0-10.0) 10^3/uL RBC (4.6-6.2) 10^6/uL Hgb (14.0-18.0) g/dL Hct (40.0-54.0) % MCV (80-100) fL MCH (27.0-34.0) pg MCHC (33.0-35.0) g/dL Plt Count (150-450) 10^3/uL Neut % (Auto) (42.2-75.2) % Lymph % (Auto) (20.5-50.1) % [place] % (Auto) (2-8) % Eos % (Auto) (1.0-3.0) % Baso % (Auto) (0.0-1.0) % PT (9.0-12.0) SEC INR (0.9-1.2) D-Dimer, Quantitative (0-400) ng/mL Sodium (136-145) mmol/L Potassium (3.5-5.1) mmol/L Chloride (98-107) mmol/L Carbon Dioxide (21-32) mmol/L Anion Gap (7-13) mEq/L BUN (7-18) mg/dL Creatinine (0.70-1.30) mg/dL Est Cr Clr Drug Dosing mL/min Estimated GFR (MDRD) BUN/Creatinine Ratio (No establ ref range) Glucose (70-99) mg/dL Calcium (8.5-10.1) mg/dL Total Bilirubin (0.2-1.0) mg/dL AST (15-37) U/L ALT (16-63) U/L Alkaline Phosphatase (46-116) U/L Troponin I (0.000-0.056) ng/mL Total Protein (6.4-8.2) g/dL Albumin (3.4-5.0) g/dL Globulin Albumin/Globulin Ratio Urine Color Yellow (YELLOW) Urine Appearance Clear (CLEAR) Urine pH 6.5 (5.0-9.0) Ur Specific [place] <= 1.005 (1.005-1.030) Urine Protein Negative (NEGATIVE) Urine Glucose (UA) Negative (NEGATIVE) Urine Ketones Negative (NEGATIVE) Urine Occult Blood Negative (NEGATIVE) Urine Nitrite Negative (NEGATIVE) Urine Bilirubin Negative (NEGATIVE) Urine Urobilinogen 4.0 H (0.2-1.0) mg/dL Ur Leukocyte Esterase Negative (NEGATIVE) Salicylates 5.4 (2.8-20(Therapeutic)) mg/dL Urine Opiates Screen Negative (NEGATIVE) Ur Oxycodone Screen Negative (NEGATIVE) Urine Methadone Screen Negative (NEGATIVE) Acetaminophen (10-30 (Therapeutic)) ug/mL Ur Barbiturates Screen Negative (NEGATIVE) U Tricyclic Antidepress Negative (NEGATIVE) Ur Phencyclidine Scrn Negative (NEGATIVE) Ur Amphetamine Screen Negative (NEGATIVE) U Methamphetamines Scrn Negative (NEGATIVE) Urine MDMA Screen Negative (NEGATIVE) U Benzodiazepines Scrn Negative (NEGATIVE) Urine Cocaine Screen Negative (NEGATIVE) U Marijuana (THC) Screen Positive H (NEGATIVE) Ethyl Alcohol (0) mg/dL 09/15/20 Range/Units 09:06 WBC (5.0-10.0) 10^3/uL RBC (4.6-6.2) 10^6/uL Hgb (14.0-18.0) g/dL Hct (40.0-54.0) % MCV (80-100) fL MCH (27.0-34.0) pg MCHC (33.0-35.0) g/dL Plt Count (150-450) 10^3/uL Neut % (Auto) (42.2-75.2) % Lymph % (Auto) (20.5-50.1) % [place] % (Auto) (2-8) % Eos % (Auto) (1.0-3.0) % Baso % (Auto) (0.0-1.0) % PT (9.0-12.0) SEC INR (0.9-1.2) D-Dimer, Quantitative (0-400) ng/mL Sodium (136-145) mmol/L Potassium (3.5-5.1) mmol/L Chloride (98-107) mmol/L Carbon Dioxide (21-32) mmol/L Anion Gap (7-13) mEq/L BUN (7-18) mg/dL Creatinine (0.70-1.30) mg/dL Est Cr Clr Drug Dosing mL/min Estimated GFR (MDRD) BUN/Creatinine Ratio (No establ ref range) Glucose (70-99) mg/dL Calcium (8.5-10.1) mg/dL Total Bilirubin (0.2-1.0) mg/dL AST (15-37) U/L ALT (16-63) U/L Alkaline Phosphatase (46-116) U/L Troponin I < 0.017 (0.000-0.056) ng/mL Total Protein (6.4-8.2) g/dL Albumin (3.4-5.0) g/dL Globulin Albumin/Globulin Ratio Urine Color (YELLOW) Urine Appearance (CLEAR) Urine pH (5.0-9.0) Ur Specific [place] (1.005-1.030) Urine Protein (NEGATIVE) Urine Glucose (UA) (NEGATIVE) Urine Ketones (NEGATIVE) Urine Occult Blood (NEGATIVE) Urine Nitrite (NEGATIVE) Urine Bilirubin (NEGATIVE) Urine Urobilinogen (0.2-1.0) mg/dL Ur Leukocyte Esterase (NEGATIVE) Salicylates (2.8-20(Therapeutic)) mg/dL Urine Opiates Screen (NEGATIVE) Ur Oxycodone Screen (NEGATIVE) Urine Methadone Screen (NEGATIVE) Acetaminophen (10-30 (Therapeutic)) ug/mL Ur Barbiturates Screen (NEGATIVE) U Tricyclic Antidepress (NEGATIVE) Ur Phencyclidine Scrn (NEGATIVE) Ur Amphetamine Screen (NEGATIVE) U Methamphetamines Scrn (NEGATIVE) Urine MDMA Screen (NEGATIVE) U Benzodiazepines Scrn (NEGATIVE) Urine Cocaine Screen (NEGATIVE) U Marijuana (THC) Screen (NEGATIVE) Ethyl Alcohol (0) mg/dL Meds: Medications Discontinued Medications Generic Name Dose Route Start Last Admin Trade Name Freq PRN Reason Stop Dose Admin Aspirin 324 mg 09/15/20 04:44 09/15/20 04:46 Aspirin 81 Mg Tab.Chew PO 09/15/20 04:45 324 mg ONETIME ONE Administration Sodium Chloride 1,000 mls @ 500 mls/hr 09/15/20 05:26 09/15/20 05:32 Normal Saline IV 09/15/20 07:25 500 mls/hr .BOLUS ONE Administration Potassium Chloride 10 meq/ 100 mls @ 100 mls/hr 09/15/20 05:27 09/15/20 05:32 Premix IV 09/15/20 06:26 100 mls/hr ONETIME ONE Administration - Re-Assessments/Exams Free Text/Narrative Re-Assessment/Exam: 09/15/20 09:48 Troponin and EKG unchanged. Discussed sodium level with patient. He states he is supposed to be taking some medications for his sodium but that he does not take them. Patient states he does not want to be admitted to the hospital. Patient states he will follow up with his primary. Patient denies any chest pain while being in the ER. Departure - Departure Time of Disposition: 09:50 Reason for Transfer *Q: Other Condition: Good Sepsis Event Note (ED) - Focused Exam Vital Signs: Vital Signs Temp Temp Pulse Resp BP Pulse Ox 09/15/20 04:51 98.6 F 98.6 F 104 H 20 110/72 93 L
[2020-09-15 05:21] LABS: CHLORIDE,CL 81 mmol/L (98-107); SODIUM,NA 121 mmol/L (136-145)
[2020-09-15 05:23] LABS: ACETAMINOPHEN 0 ug/mL (10-30 (Therapeutic))
[2020-09-15] MEDS ORDERED: Sodium Chloride 0.9% 1,000 ML IV ONE (05:26)
[2020-09-15] MEDS ORDERED: Potassium Chloride 10 MEQ in Premix Bag 1 BAG IV ONE (05:27)
--- NOTE | 2020-09-15 05:40 | CR ---
PROCEDURE INFORMATION: Exam: XR Chest Exam date and time: 09/15/2020 5:01 AM Age: 54 years old Clinical indication: Chest pain TECHNIQUE: Imaging protocol: XR of the chest. Views: 1 view. COMPARISON: CR Chest 1V Frontal 03/01/2020 3:21 PM FINDINGS: Lungs: The lungs are adequately inflated. No consolidation. A 1.6 cm nodular opacity overlies the posterior right 8th rib, in the perihilar region. This may represent a vascular structure. Pleural spaces: No pleural effusion or pneumothorax. Heart/Mediastinum: Cardiac silhouette size is normal. Bones/joints: Multiple bilateral rib fractures are redemonstrated. IMPRESSION: 1. No radiographic evidence of an acute cardiopulmonary process. 2. A 1.6 cm opacity overlying the posterior right 8th rib in the perihilar region most likely represents a vascular structure. Consider chest CT for better characterization.
== END 2020-09-15 10:11 | disposition home or self-care (01) ==
LOC: DL.ED 04:57
DX: R07.9 Chest pain, unspecified (principal); E87.1 Hypo-osmolality and hyponatremia; I10 Essential (primary) hypertension; J44.9 Chronic obstructive pulmonary disease, unspecified; K21.9 Gastro-esophageal reflux disease without esophagitis; Z79.899 Other long term (current) drug therapy
CPT/HCPCS: 36415; 71045; 80053; 80143; 80179; 80305; 80307; 81003; 84484; 85025; 85379; 85610; 93005; 93010; 96365; 99284; 99285; A9270; J3480; J7030

== ENCOUNTER 2020-09-16 21:17 | Emergency (ER) | payer MEDICARE, MEDICAID ==
--- NOTE | 2020-09-16 21:30 | EDM.PDOC ---
ED HPI GENERAL MEDICAL PROBLEM - General Chief Complaint: Gastrointestinal Problem Stated Complaint: AMBULANCE Time Seen by Provider: 09/16/20 21:20 Source of Information: Reports: Patient, EMS History Limitations: Reports: No Limitations - History of Present Illness INITIAL COMMENTS - FREE TEXT/NARRATIVE: This 54 yo male patient reports to the ED due to muscle weakness and dark tarry stools. The patient was seen in the ED yesterday due to generalized weakness. The patient reports he normally drinks 20-30 beers per day, but has not had any alcohol in the past 24 hours. The patient denies any history of GI bleeds, but did have a "cyst rupture in his intestines" "years" ago. The patient reports he has not eaten much today, but did drink a protein shake. The patient noticed the dark stools just prior to the call for EMS. Onset: Today Duration: Constant Location: Reports: Generalized Quality: Reports: Other Severity: Moderate Improves with: Reports: None Worsens with: Reports: None Context: Reports: Other Associated Symptoms: Reports: Weakness Bilateral Leg Pain Score (Numeric/FACES): 6 - Related Data Allergies Allergy/AdvReac Type Severity Reaction Status Date / Time No Known Allergies Allergy Verified 09/16/20 21:37 Home Meds: Home Meds DULoxetine [Cymbalta] 60 mg PO DAILY 07/20/17 [History] Omeprazole 20 mg PO DAILY 07/20/17 [History] Acetaminophen [Tylenol] 650 mg PO Q4H PRN tablet 09/17/17 [Rx] Albuterol/Ipratropium [DuoNeb 3.0-0.5 MG/3 ML] 3 ml .XX Q4H PRN #30 neb 09/17/17 [Rx] Fluticasone Propion/Salmeterol [Wixela 500-50 Inhub] 1 each IH ASDIRECTED 07/22/20 [History] Tiotropium [place] [Spiriva Respimat] 1 inh INH DAILY 07/22/20 [History] Past Medical History - Past Health History Medical/Surgical History: Denies Medical/Surgical History HEENT History: Reports: None, Impaired Vision, Other (See Below) Other HEENT History: double vision Cardiovascular History: Reports: High Cholesterol, Hypertension Respiratory History: Reports: Asthma, Bronchitis, Recurrent, COPD, Pneumonia, Recurrent Gastrointestinal History: Reports: GERD, PUD Genitourinary History: Reports: None Musculoskeletal History: Reports: Fracture Other Musculoskeletal History: PERTHES DISEASE Neurological History: Reports: Neuropathy, Peripheral, Other (See Below) 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 Psychiatric History: Reports: Addiction, Anxiety, Depression Endocrine/Metabolic History: Reports: None Hematologic History: Reports: None Immunologic History: Reports: None Oncologic (Cancer) History: Reports: None Dermatologic History: Reports: None - Infectious Disease History Infectious Disease History: Reports: Chicken Pox - Past Surgical History Musculoskeletal Surgical History: Reports: Carpal Tunnel Social & Family History - Family History Family Medical History: No Pertinent Family History Respiratory: Reports: COPD Endocrine/Metabolic: Reports: Diabetes, type II Oncologic: Reports: Lung - Caffeine Use Caffeine Use: Reports: Coffee - Living Situation & Occupation Living situation: Reports: with Family Occupation: Unemployed ED ROS GENERAL - Review of Systems Review Of Systems: Comprehensive ROS is negative, except as noted in HPI. ED EXAM, GI/ABD - Physical Exam Exam: See Below Exam Limited By: No Limitations General Appearance: Alert, WD/WN, Moderate Distress Eyes: Bilateral: Normal Appearance, EOMI Ears: Normal External Exam, Normal Canal, Hearing Grossly Normal, Normal TMs Nose: Normal Inspection, Normal Mucosa, No Blood Throat/Mouth: Normal Inspection, Normal Lips, Normal Teeth, Normal Gums, Normal Oropharynx, Normal Voice, No Airway Compromise Head: Atraumatic, Normocephalic Neck: Normal Inspection, Supple, Non-Tender, Full Range of Motion Respiratory/Chest: No Respiratory Distress, Lungs Clear, Normal Breath Sounds, No Accessory Muscle Use, Chest Non-Tender Cardiovascular: Normal Peripheral Pulses, Regular Rate, Rhythm, No Edema, No Gallop, No JVD, No Murmur, No Rub GI/Abdominal Exam: Normal Bowel Sounds, Soft, Non-Tender, No Organomegaly, No Distention, No Abnormal Bruit, No Mass, Pelvis Stable (Male) Exam: Deferred Rectal (Males) Exam: Deferred Back Exam: Normal Inspection, Full Range of Motion, NT Extremities: Normal Inspection, Normal Range of Motion, Non-Tender, Normal Capillary Refill, No Pedal Edema Neurological: Alert, Oriented, CN II-XII Intact, Normal Cognition, Normal Gait, Normal Reflexes, No Motor/Sensory Deficits Psychiatric: Normal Affect, Normal Mood Skin Exam: Warm, Dry, Intact, Normal Color, No Rash Lymphatic: No Adenopathy #1 Interpretation EKG Date: 09/16/20 Time: 21:26 Rhythm: Other (Sinus Tach) Rate (Beats/Min): 126 [place]: Normal P-Wave: Present QRS: Normal ST-T: Normal QT: Normal Comparison: Change From Previous EKG (rate change) Course - Vital Signs Last Recorded V/S: Last Vital Signs Temp 35.9 C L 09/16/20 21:18 Pulse 107 H 09/16/20 22:05 Resp 19 09/16/20 22:05 BP 87/63 L 09/16/20 22:05 Pulse Ox 97 09/16/20 22:05 - Orders/Labs/Meds Orders: Active Orders 24 hr Category Date Time Status EKG Documentation Completion [RC] STAT Care 09/16/20 21:14 Active Lactated Ringers [Ringers, Lactated] 1,000 ml Med 09/16/20 21:46 Active IV .BOLUS Medication Orders Lactated Ringer's (Ringers, Lactated) 1,000 mls @ 999 mls/hr IV .BOLUS ONE Stop: 09/16/20 22:46 Last Admin: 09/16/20 22:15 Dose: 999 mls/hr Documented by: SANDRA Labs: Laboratory Tests 09/16/20 09/16/20 09/16/20 Range/Units 21:20 21:20 21:20 WBC 9.5 (5.0-10.0) 10^3/uL RBC 4.20 L (4.6-6.2) 10^6/uL Hgb 12.9 L D (14.0-18.0) g/dL Hct 38.8 L (40.0-54.0) % MCV 92.4 D (80-100) fL MCH 30.7 (27.0-34.0) pg MCHC 33.2 (33.0-35.0) g/dL Plt Count 114 L (150-450) 10^3/uL Neut % (Auto) 56.0 (42.2-75.2) % Lymph % (Auto) 30.8 (20.5-50.1) % [place] % (Auto) 11.7 H (2-8) % Eos % (Auto) 0.8 L (1.0-3.0) % Baso % (Auto) 0.7 (0.0-1.0) % PT 11.8 (9.0-12.0) SEC INR 1.2 (0.9-1.2) Sodium 137 D (136-145) mmol/L Potassium 4.0 (3.5-5.1) mmol/L Chloride 94 L D (98-107) mmol/L Carbon Dioxide 29 (21-32) mmol/L Anion Gap 18.0 H (7-13) mEq/L BUN 27 H (7-18) mg/dL Creatinine 0.90 (0.70-1.30) mg/dL Est Cr Clr Drug Dosing 62.48 mL/min Estimated GFR (MDRD) > 60 BUN/Creatinine Ratio 30.0 (No establ ref range) Glucose 165 H (70-99) mg/dL Calcium 8.7 (8.5-10.1) mg/dL Total Bilirubin 0.9 (0.2-1.0) mg/dL AST 65 H (15-37) U/L ALT 66 H (16-63) U/L Alkaline Phosphatase 104 (46-116) U/L Troponin I 0.019 (0.000-0.056) ng/mL Total Protein 5.9 L (6.4-8.2) g/dL Albumin 3.0 L (3.4-5.0) g/dL Globulin 2.9 Albumin/Globulin Ratio 1.03 Ethyl Alcohol < 3 (0) mg/dL Meds: Medications Generic Name Dose Route Start Last Admin Trade Name Freq PRN Reason Stop Dose Admin Lactated Ringer's 1,000 mls @ 999 mls/hr 09/16/20 21:46 09/16/20 22:15 Ringers, Lactated IV 09/16/20 22:46 999 mls/hr .BOLUS ONE Administration Departure - Departure Time of Disposition: 22:22 Disposition: DC/Tfer to Acute Hospital 02 Condition: Fair Clinical Impression: GI bleed Qualifiers: GI bleed type/associated pathology: unspecified gastrointestinal hemorrhage type Qualified Code(s): K92.2 - Gastrointestinal hemorrhage, unspecified Alcohol withdrawal Qualifiers: Complication of substance-induced condition: uncomplicated Qualified Code(s): F10.230 - Alcohol dependence with withdrawal, uncomplicated - Discharge Information *PRESCRIPTION DRUG MONITORING PROGRAM REVIEWED*: Not Applicable *COPY OF PRESCRIPTION DRUG MONITORING REPORT IN PATIENT SALVADOR: Not Applicable Forms: Interfacility Transfer EMTALA Care Plan Goals: Discussed the patient's history, lab results and treatments with Dr. Kaur ([facility]). Dr. Kaur accepted the patient for continued evaluation and management. The patient will be transported by [facility]. Sepsis Event Note (ED) - Focused Exam Vital Signs: Vital Signs Temp Pulse Resp BP Pulse Ox 09/16/20 22:05 107 H 19 87/63 L 97 09/16/20 21:18 35.9 C L 121 H 20 119/101 H 99 - My Orders Last 24 Hours: My Active Orders 09/16/20 21:14 EKG Documentation Completion [RC] STAT 09/16/20 21:46 Lactated Ringers [Ringers, Lactated] 1,000 ml IV .BOLUS - Assessment/Plan Last 24 Hours: My Active Orders 09/16/20 21:14 EKG Documentation Completion [RC] STAT 09/16/20 21:46 Lactated Ringers [Ringers, Lactated] 1,000 ml IV .BOLUS
[2020-09-16] MEDS ORDERED: Lactated Ringers 1,000 ML IV ONE (21:46)
[2020-09-16 21:51] LABS: CHLORIDE,CL 94 mmol/L (98-107); SODIUM,NA 137 mmol/L (136-145)
[2020-09-16 22:06] VITALS: BP 87/63; PULSE 107
== END 2020-09-16 23:09 ==
LOC: DL.ED 21:17
DX: K92.2 Gastrointestinal hemorrhage, unspecified (principal); F10.230 Alcohol dependence with withdrawal, uncomplicated; I10 Essential (primary) hypertension; J44.9 Chronic obstructive pulmonary disease, unspecified; K21.9 Gastro-esophageal reflux disease without esophagitis; G62.9 Polyneuropathy, unspecified; Z79.899 Other long term (current) drug therapy
CPT/HCPCS: 36415; 80053; 80307; 82272; 84484; 85025; 85610; 93005; 99285; J7120

== ENCOUNTER 2021-04-18 18:07 | Inpatient (IN) | payer MEDICARE, MEDICAID ==
[2021-04-18] MEDS ORDERED: Diphtheria,Pertussis(Acell),Tetanus Vaccine 0.5 ML Syringe IM ONE (19:51)
[2021-04-18] MEDS ORDERED: Cephalexin 500 MG Cap PO ONE (19:53)
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
[2021-04-18 21:29] LABS: ANION GAP 10.8 mEq/L (7-13); CHLORIDE,CL 88 mmol/L (98-107); SODIUM,NA 127 mmol/L (136-145)
[2021-04-18] MEDS ORDERED: MVI, Adult with Vitamin K 10 ML, Folic Acid 1 MG, Thiamine 100 MG in Lactated Ringers 1... IV ONE ×4 (21:51)
[2021-04-18] MEDS ORDERED: Magnesium Sulfate/Water 2 GM in Premix Bag 1 BAG IV ONE (21:51)
[2021-04-18 23:02] LABS: AMPHETAMINES,URINE NEGATIVE (NEGATIVE); BARBITURATES,URINE NEGATIVE (NEGATIVE); BENZODIAZEPINE,URINE NEGATIVE (NEGATIVE); MDMA (ECSTASY), URINE NEGATIVE (NEGATIVE); METHADONE,URINE NEGATIVE (NEGATIVE); METHAMPHETAMINES,URINE NEGATIVE (NEGATIVE); OPIATES,URINE NEGATIVE (NEGATIVE); OXYCODONE,URINE NEGATIVE (NEGATIVE); PHENCYCLIDINE,URINE NEGATIVE (NEGATIVE); TCA,URINE NEGATIVE (NEGATIVE)
--- NOTE | 2021-04-19 00:15 | CR ---
PROCEDURE INFORMATION: Exam: XR Chest Exam date and time: 04/18/2021 11:39 PM Age: 55 years old Clinical indication: Other: Hypoxia TECHNIQUE: Imaging protocol: XR of the chest. Views: 1 view. COMPARISON: CR Chest 1V Frontal 09/15/2020 5:01 AM FINDINGS: Lungs: Diffuse bilateral interstitial disease left greater than right. There is no evidence of focal pulmonary consolidation. Pleural spaces: No pleural effusion. No pneumothorax. Heart/Mediastinum: Prominent cardiac size with a prominent main pulmonary artery contour. Bones/joints: Multiple healed bilateral rib fractures. IMPRESSION: Asymmetric interstitial disease left greater than right. Question interstitial pneumonia. Asymmetric edema cannot be excluded.
[2021-04-19] MEDS ORDERED: Acetaminophen 325 MG Tab PO ONE (00:34)
[2021-04-19] MEDS ORDERED: Albuterol 0.083% 2.5 MG/3 ML Neb Soln NEB ONE (01:13)
[2021-04-19] MEDS ORDERED: LORazepam 0.5 MG Tab PO ONE (01:20)
[2021-04-19] MEDS ORDERED: LORazepam 2 MG/ML SDV IVPUSH PRN (03:24)
[2021-04-19] MEDS ORDERED: LORazepam 1 MG Tab PO PRN (03:24)
[2021-04-19] MEDS ORDERED: Albuterol/Ipratropium 3.0-0.5 MG/3 ML Neb Soln NEB PRN (03:26)
[2021-04-19] MEDS ORDERED: Acetaminophen 325 MG Tab PO PRN (03:27)
[2021-04-19] MEDS ORDERED: Ondansetron 4 MG/2 ML SDV IVPUSH PRN (03:27)
[2021-04-19] MEDS ORDERED: Temazepam 15 MG Cap PO PRN (03:27)
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
[2021-04-19] MEDS: Piperacillin/Tazobactam 3.375 GM in Sodium Chloride 0.9% 100 ML IV SCH ×5 (04:44→23:58)
[2021-04-19] MEDS: NS + KCl 20mEq/L 1,000 ML IV SCH ×2 (04:44→14:44)
[2021-04-19] MEDS: Heparin Sodium 5,000 Units/ML Vial SUBCUT SCH ×3 (06:36→21:45)
[2021-04-19 07:09] LABS: ANION GAP 9.8 mEq/L (7-13); CHLORIDE,CL 96 mmol/L (98-107); SODIUM,NA 134 mmol/L (136-145)
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
[2021-04-19] MEDS: Thiamine 100 MG Tab PO SCH (09:47)
[2021-04-19] MEDS: Multivitamins, Therapeutic with Minerals Tab PO SCH (09:47)
[2021-04-19] MEDS: Folic Acid 1 MG Tab PO SCH (09:47)
[2021-04-19] MEDS: Nicotine 14 MG/24 Hr Patch TRDERM SCH (12:59)
[2021-04-19] MEDS ORDERED: Piperacillin/Tazobactam 3.375 GM in Sodium Chloride 0.9% 100 ML IV SCH (13:00)
[2021-04-19] MEDS: oxyCODONE 5 MG Tab PO PRN ×2 (14:24→18:50)
[2021-04-19] MEDS: Albuterol/Ipratropium 3.0-0.5 MG/3 ML Neb Soln NEB SCH ×2 (16:26→17:10)
[2021-04-19] MEDS: Budesonide 0.5 MG/2 ML Neb Susp NEB SCH ×2 (16:26→17:10)
[2021-04-19] MEDS: Bacitracin Oint 28.35 GM Tube TOP SCH ×2 (16:34→22:41)
[2021-04-19] MEDS: Morphine 2 MG/ML SYRINGE IVPUSH PRN (21:53)
[2021-04-20] MEDS: Albuterol/Ipratropium 3.0-0.5 MG/3 ML Neb Soln NEB SCH ×4 (00:03→18:57)
[2021-04-20] MEDS: oxyCODONE 5 MG Tab PO PRN ×5 (00:16→20:59)
[2021-04-20] MEDS: NS + KCl 20mEq/L 1,000 ML IV SCH (01:51)
[2021-04-20] MEDS: Morphine 2 MG/ML SYRINGE IVPUSH PRN ×2 (03:28→22:56)
[2021-04-20] MEDS: Heparin Sodium 5,000 Units/ML Vial SUBCUT SCH ×3 (05:13→21:01)
[2021-04-20] MEDS: Piperacillin/Tazobactam 3.375 GM in Sodium Chloride 0.9% 100 ML IV SCH ×3 (06:01→17:48)
[2021-04-20 06:54] LABS: ANION GAP 9.9 mEq/L (7-13); CHLORIDE,CL 95 mmol/L (98-107); SODIUM,NA 129 mmol/L (136-145)
[2021-04-20] MEDS: Budesonide 0.5 MG/2 ML Neb Susp NEB SCH ×2 (07:46→18:57)
[2021-04-20] MEDS: Thiamine 100 MG Tab PO SCH (08:22)
[2021-04-20] MEDS: Multivitamins, Therapeutic with Minerals Tab PO SCH (08:22)
[2021-04-20] MEDS: Folic Acid 1 MG Tab PO SCH (08:22)
[2021-04-20] MEDS: Nicotine 14 MG/24 Hr Patch TRDERM SCH (08:23)
[2021-04-20] MEDS: Bacitracin Oint 28.35 GM Tube TOP SCH (09:10)
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
[2021-04-20] MEDS: DULoxetine 30 MG Cap PO SCH (14:39)
[2021-04-20] MEDS: Omeprazole 20 MG Cap.CR PO SCH (14:39)
[2021-04-20] MEDS: Silver Sulfadiazine 1% Crm 50 GM Tube TOP SCH ×2 (14:42→21:13)
[2021-04-20] MEDS ORDERED: Baclofen 10 MG Tab PO PRN ×2 (23:00→23:21)
[2021-04-20] MEDS ORDERED: fentaNYL 100 MCG/2 ML SDV IVPUSH ONE (23:59)
[2021-04-21] MEDS: Piperacillin/Tazobactam 3.375 GM in Sodium Chloride 0.9% 100 ML IV SCH ×4 (00:14→18:03)
[2021-04-21] MEDS ORDERED: fentaNYL 100 MCG/2 ML SDV ONE (00:18)
[2021-04-21] MEDS: Albuterol/Ipratropium 3.0-0.5 MG/3 ML Neb Soln NEB SCH ×4 (02:44→18:14)
[2021-04-21] MEDS: oxyCODONE 5 MG Tab PO PRN ×3 (04:57→17:24)
[2021-04-21] MEDS: Omeprazole 20 MG Cap.CR PO SCH (04:59)
[2021-04-21] MEDS: Heparin Sodium 5,000 Units/ML Vial SUBCUT SCH ×3 (04:59→21:16)
[2021-04-21 06:45] LABS: CHLORIDE,CL 92 mmol/L (98-107); SODIUM,NA 132 mmol/L (136-145)
[2021-04-21] MEDS: Budesonide 0.5 MG/2 ML Neb Susp NEB SCH ×2 (07:15→18:14)
[2021-04-21] MEDS: Nicotine 14 MG/24 Hr Patch TRDERM SCH (08:09)
[2021-04-21] MEDS: DULoxetine 30 MG Cap PO SCH (08:09)
[2021-04-21] MEDS: Thiamine 100 MG Tab PO SCH (08:10)
[2021-04-21] MEDS: Multivitamins, Therapeutic with Minerals Tab PO SCH (08:12)
[2021-04-21] MEDS: Docusate Sodium 100 MG Cap PO PRN ×2 (08:12→20:49)
[2021-04-21] MEDS: Folic Acid 1 MG Tab PO SCH (08:12)
[2021-04-21] MEDS ORDERED: Baclofen 10 MG Tab PO PRN (09:23)
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
[2021-04-21 10:15] LABS: BASE EXCESS ARTERIAL 1 mmol/L ((-2)-(+3)); BICARBONATE,ARTERIAL 26.3 mmol/L (22-26); O2 DELIVERY DEVICE NASAL CANNULA; O2 SATURATION ARTERIAL 94 % (95-100); PCO2 ARTERIAL 46 mmHg (35-45); PO2 ARTERIAL 79 mmHg (70-100)
[2021-04-21 10:18] LABS: ALLEN TEST pos; O2 FLOW RATE 2
[2021-04-21] MEDS: Azithromycin 500 MG in Sodium Chloride 0.9% 250 ML IV SCH (10:50)
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
[2021-04-21] MEDS: Silver Sulfadiazine 1% Crm 50 GM Tube TOP SCH ×2 (13:20→20:41)
[2021-04-21] MEDS: Gabapentin 300 MG Cap PO SCH ×2 (14:56→20:40)
[2021-04-21] MEDS: Ibuprofen 400 MG Tab PO PRN (20:49)
[2021-04-22] MEDS: Piperacillin/Tazobactam 3.375 GM in Sodium Chloride 0.9% 100 ML IV SCH ×5 (00:14→17:40)
[2021-04-22] MEDS: Albuterol/Ipratropium 3.0-0.5 MG/3 ML Neb Soln NEB SCH ×4 (00:15→18:58)
[2021-04-22] MEDS: oxyCODONE 5 MG Tab PO PRN ×2 (00:35→22:39)
[2021-04-22] MEDS: Ibuprofen 400 MG Tab PO PRN ×3 (05:21→20:14)
[2021-04-22] MEDS: Omeprazole 20 MG Cap.CR PO SCH (05:22)
[2021-04-22] MEDS: Heparin Sodium 5,000 Units/ML Vial SUBCUT SCH ×3 (05:23→22:41)
[2021-04-22] MEDS: Sodium Chloride 0.9% 10 ML Syringe FLUSH PRN ×3 (05:27→13:00)
[2021-04-22 06:55] LABS: ANION GAP 9.7 mEq/L (7-13); CHLORIDE,CL 94 mmol/L (98-107); SODIUM,NA 132 mmol/L (136-145)
[2021-04-22] MEDS: Budesonide 0.5 MG/2 ML Neb Susp NEB SCH ×2 (07:27→18:58)
[2021-04-22] MEDS: Multivitamins, Therapeutic with Minerals Tab PO SCH (08:08)
[2021-04-22] MEDS: Gabapentin 300 MG Cap PO SCH ×3 (08:08→22:40)
[2021-04-22] MEDS: DULoxetine 30 MG Cap PO SCH (08:09)
[2021-04-22] MEDS: Folic Acid 1 MG Tab PO SCH (08:10)
[2021-04-22] MEDS: Thiamine 100 MG Tab PO SCH (08:10)
[2021-04-22] MEDS: Nicotine 14 MG/24 Hr Patch TRDERM SCH (08:11)
[2021-04-22] MEDS: Azithromycin 500 MG in Sodium Chloride 0.9% 250 ML IV SCH (09:03)
[2021-04-22] MEDS: Silver Sulfadiazine 1% Crm 50 GM Tube TOP SCH ×2 (11:00→22:43)
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
[2021-04-22] MEDS: Docusate Sodium 100 MG Cap PO PRN (20:14)
[2021-04-23] MEDS: Sodium Chloride 0.9% 10 ML Syringe FLUSH PRN ×2 (00:36→05:59)
[2021-04-23] MEDS: Piperacillin/Tazobactam 3.375 GM in Sodium Chloride 0.9% 100 ML IV SCH ×4 (00:36→17:58)
[2021-04-23] MEDS: Albuterol/Ipratropium 3.0-0.5 MG/3 ML Neb Soln NEB SCH ×4 (01:47→18:52)
[2021-04-23] MEDS: oxyCODONE 5 MG Tab PO PRN ×3 (05:57→21:18)
[2021-04-23] MEDS: Omeprazole 20 MG Cap.CR PO SCH (05:58)
[2021-04-23] MEDS: Heparin Sodium 5,000 Units/ML Vial SUBCUT SCH ×3 (06:05→21:19)
[2021-04-23 07:05] LABS: ANION GAP 9.8 mEq/L (7-13); CHLORIDE,CL 100 mmol/L (98-107); SODIUM,NA 137 mmol/L (136-145)
[2021-04-23] MEDS: Budesonide 0.5 MG/2 ML Neb Susp NEB SCH ×2 (07:05→18:52)
[2021-04-23] MEDS: Thiamine 100 MG Tab PO SCH (09:25)
[2021-04-23] MEDS: Folic Acid 1 MG Tab PO SCH (09:25)
[2021-04-23] MEDS: DULoxetine 30 MG Cap PO SCH (09:25)
[2021-04-23] MEDS: Multivitamins, Therapeutic with Minerals Tab PO SCH (09:25)
[2021-04-23] MEDS: Nicotine 14 MG/24 Hr Patch TRDERM SCH (09:26)
[2021-04-23] MEDS: Docusate Sodium 100 MG Cap PO PRN (09:26)
[2021-04-23] MEDS: Gabapentin 300 MG Cap PO SCH ×3 (09:26→21:18)
[2021-04-23] MEDS: Azithromycin 500 MG in Sodium Chloride 0.9% 250 ML IV SCH (09:30)
[2021-04-23] MEDS: Silver Sulfadiazine 1% Crm 50 GM Tube TOP SCH ×2 (10:35→22:14)
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
[2021-04-23] MEDS: Ibuprofen 400 MG Tab PO PRN (11:57)
[2021-04-23] MEDS: Lactulose Soln 10 GM/15 ML 30 ML UD Cup PO SCH ×2 (11:59→17:59)
[2021-04-23] MEDS: methylPREDNISolone Sodium Succinate 40 MG/1 ML SDV IVPUSH SCH ×2 (12:00→19:44)
[2021-04-24] MEDS: Piperacillin/Tazobactam 3.375 GM in Sodium Chloride 0.9% 100 ML IV SCH ×4 (00:17→18:14)
[2021-04-24] MEDS: Albuterol/Ipratropium 3.0-0.5 MG/3 ML Neb Soln NEB SCH ×4 (00:26→18:20)
[2021-04-24] MEDS: methylPREDNISolone Sodium Succinate 40 MG/1 ML SDV IVPUSH SCH ×3 (03:20→20:36)
[2021-04-24] MEDS: Omeprazole 20 MG Cap.CR PO SCH (05:55)
[2021-04-24] MEDS: Heparin Sodium 5,000 Units/ML Vial SUBCUT SCH ×3 (05:55→21:08)
[2021-04-24 07:44] LABS: ANION GAP 11.5 mEq/L (7-13); CHLORIDE,CL 97 mmol/L (98-107); SODIUM,NA 136 mmol/L (136-145)
[2021-04-24] MEDS: Gabapentin 300 MG Cap PO SCH ×3 (08:33→20:35)
[2021-04-24] MEDS: Multivitamins, Therapeutic with Minerals Tab PO SCH (08:33)
[2021-04-24] MEDS: DULoxetine 30 MG Cap PO SCH (08:33)
[2021-04-24] MEDS: Folic Acid 1 MG Tab PO SCH (08:33)
[2021-04-24] MEDS: Thiamine 100 MG Tab PO SCH (08:33)
[2021-04-24] MEDS: oxyCODONE 5 MG Tab PO PRN ×2 (08:33→20:36)
[2021-04-24] MEDS: Nicotine 14 MG/24 Hr Patch TRDERM SCH (08:34)
[2021-04-24] MEDS: Silver Sulfadiazine 1% Crm 50 GM Tube TOP SCH ×2 (08:38→20:45)
[2021-04-24] MEDS: Azithromycin 500 MG in Sodium Chloride 0.9% 250 ML IV SCH (09:15)
[2021-04-24] MEDS: Budesonide 0.5 MG/2 ML Neb Susp NEB SCH ×2 (10:16→18:20)
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
[2021-04-24] MEDS: Ibuprofen 400 MG Tab PO PRN (18:19)
[2021-04-25] MEDS: Piperacillin/Tazobactam 3.375 GM in Sodium Chloride 0.9% 100 ML IV SCH ×4 (00:04→17:19)
[2021-04-25] MEDS: Albuterol/Ipratropium 3.0-0.5 MG/3 ML Neb Soln NEB SCH ×4 (00:09→18:21)
[2021-04-25] MEDS: Ibuprofen 400 MG Tab PO PRN ×3 (02:11→22:09)
[2021-04-25] MEDS: oxyCODONE 5 MG Tab PO PRN ×4 (02:11→22:10)
[2021-04-25] MEDS: Heparin Sodium 5,000 Units/ML Vial SUBCUT SCH ×3 (05:43→21:23)
[2021-04-25] MEDS: Omeprazole 20 MG Cap.CR PO SCH (05:43)
[2021-04-25] MEDS: Budesonide 0.5 MG/2 ML Neb Susp NEB SCH ×2 (07:24→18:21)
[2021-04-25] MEDS: Gabapentin 300 MG Cap PO SCH ×3 (08:47→21:22)
[2021-04-25] MEDS: DULoxetine 30 MG Cap PO SCH (08:47)
[2021-04-25] MEDS: Thiamine 100 MG Tab PO SCH (08:47)
[2021-04-25] MEDS: Folic Acid 1 MG Tab PO SCH (08:47)
[2021-04-25] MEDS: Multivitamins, Therapeutic with Minerals Tab PO SCH (08:47)
[2021-04-25] MEDS: Nicotine 14 MG/24 Hr Patch TRDERM SCH (08:50)
[2021-04-25] MEDS: Silver Sulfadiazine 1% Crm 50 GM Tube TOP SCH ×2 (08:51→21:22)
[2021-04-25] MEDS: methylPREDNISolone Sodium Succinate 40 MG/1 ML SDV IVPUSH SCH (08:52)
[2021-04-25] MEDS: Azithromycin 500 MG in Sodium Chloride 0.9% 250 ML IV SCH (09:02)
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
[2021-04-26] MEDS: Docusate Sodium 100 MG Cap PO PRN (00:01)
[2021-04-26] MEDS: Albuterol/Ipratropium 3.0-0.5 MG/3 ML Neb Soln NEB SCH ×2 (00:02→07:22)
[2021-04-26] MEDS: Piperacillin/Tazobactam 3.375 GM in Sodium Chloride 0.9% 100 ML IV SCH ×3 (00:21→12:51)
[2021-04-26] MEDS: Ibuprofen 400 MG Tab PO PRN (04:04)
[2021-04-26] MEDS: Heparin Sodium 5,000 Units/ML Vial SUBCUT SCH ×2 (06:03→14:46)
[2021-04-26] MEDS: Omeprazole 20 MG Cap.CR PO SCH (06:03)
[2021-04-26] MEDS: Budesonide 0.5 MG/2 ML Neb Susp NEB SCH (07:22)
[2021-04-26] MEDS ORDERED: predniSONE 20 MG Tab PO SCH (08:00)
[2021-04-26] MEDS: Folic Acid 1 MG Tab PO SCH (08:47)
[2021-04-26] MEDS: Multivitamins, Therapeutic with Minerals Tab PO SCH (08:47)
[2021-04-26] MEDS: Thiamine 100 MG Tab PO SCH (08:48)
[2021-04-26] MEDS: Gabapentin 300 MG Cap PO SCH ×2 (08:48→14:46)
[2021-04-26] MEDS: DULoxetine 30 MG Cap PO SCH (08:48)
[2021-04-26] MEDS: Nicotine 14 MG/24 Hr Patch TRDERM SCH (08:48)
[2021-04-26] MEDS: Azithromycin 500 MG in Sodium Chloride 0.9% 250 ML IV SCH (09:18)
[2021-04-26] MEDS: Sodium Chloride 0.9% 10 ML Syringe FLUSH PRN ×3 (09:19→13:52)
[2021-04-26] MEDS: oxyCODONE 5 MG Tab PO PRN (10:09)
[2021-04-26] MEDS: Silver Sulfadiazine 1% Crm 50 GM Tube TOP SCH (10:11)
[2021-04-26 12:45] VITALS: BP 138/86
[2021-04-26 13:42] VITALS: PULSE 104
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
== END 2021-04-26 15:06 | disposition swing bed (61) | DRG 177 ==
LOC: DL.ED 18:07 → DL.MS 04-19 03:00
PROVIDERS: ADMIT Internal Medicine; ATTEND Internal Medicine
DX: A41.9 Sepsis, unspecified organism (principal); J69.0 Pneumonitis due to inhalation of food and vomit; T22.022A Burn of unspecified degree of left elbow, initial encounter; T22.032A Burn of unspecified degree of left upper arm, initial encounter; J96.01 Acute respiratory failure with hypoxia; E87.1 Hypo-osmolality and hyponatremia; R64 Cachexia; J44.9 Chronic obstructive pulmonary disease, unspecified; J44.1 Chronic obstructive pulmonary disease with (acute) exacerbation; Z68.1 Body mass index [BMI] 19.9 or less, adult; F10.230 Alcohol dependence with withdrawal, uncomplicated; F05 Delirium due to known physiological condition; T22.00XA Burn of unspecified degree of shoulder and upper limb, except wrist and hand, unspecified site, initial encounter; H54.7 Unspecified visual loss; E78.00 Pure hypercholesterolemia, unspecified; I10 Essential (primary) hypertension; Z20.822 Contact with and (suspected) exposure to COVID-19; F10.229 Alcohol dependence with intoxication, unspecified; F17.210 Nicotine dependence, cigarettes, uncomplicated; K21.9 Gastro-esophageal reflux disease without esophagitis; F41.9 Anxiety disorder, unspecified; F32.A Depression, unspecified; G62.9 Polyneuropathy, unspecified; F17.200 Nicotine dependence, unspecified, uncomplicated; R25.2 Cramp and spasm; Z87.01 Personal history of pneumonia (recurrent); Z23 Encounter for immunization; Z79.899 Other long term (current) drug therapy; Z87.11 Personal history of peptic ulcer disease
CPT/HCPCS: 36415 ×2; 71045; 80053; 80305; 80307; 81003; 82140; 83605; 83735; 83880; 85025; 87040 ×2; 90715; 96365; 96366; 96367; 96368; 99284; A9270 ×3; J3370; J3411; J3475; J7050; J7120; U0002; 36600; 80048; 82803; 87070; 87205; 90686; 94640; 97110-GO; 97110-GP; 97161-GP; 97165-GO; 97530-GO; G0008; J0456; J1644; J2060; J2270; J2543; J2920; J3010; J3480; J3490; J7512; J7613-GY; J7620-GY

== ENCOUNTER 2021-04-26 13:01 | Inpatient (IN) | payer MEDICARE, MEDICAID ==
[2021-04-26] MEDS ORDERED: Ondansetron 4 MG/2 ML SDV IVPUSH PRN (15:44)
[2021-04-26] MEDS ORDERED: Sodium Chloride 0.9% 10 ML Syringe FLUSH PRN (15:44)
[2021-04-26] MEDS ORDERED: LORazepam 1 MG Tab PO PRN (15:44)
[2021-04-26] MEDS ORDERED: Baclofen 10 MG Tab PO PRN (15:44)
[2021-04-26] MEDS ORDERED: LORazepam 2 MG/ML SDV IVPUSH PRN (15:44)
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
[2021-04-26] MEDS: Albuterol/Ipratropium 3.0-0.5 MG/3 ML Neb Soln NEB SCH (18:52)
[2021-04-26] MEDS: Budesonide 0.5 MG/2 ML Neb Susp NEB SCH (18:53)
[2021-04-26] MEDS: Heparin Sodium 5,000 Units/ML Vial SUBCUT SCH (21:14)
[2021-04-26] MEDS: Gabapentin 300 MG Cap PO SCH (21:15)
[2021-04-26] MEDS: oxyCODONE 5 MG Tab PO PRN (21:15)
[2021-04-26] MEDS: Amoxicillin/Clavulanate K 500-125 MG Tab PO SCH (21:15)
[2021-04-26] MEDS: Silver Sulfadiazine 1% Crm 50 GM Tube TOP SCH (21:24)
[2021-04-27] MEDS: Albuterol/Ipratropium 3.0-0.5 MG/3 ML Neb Soln NEB SCH ×4 (01:09→18:12)
[2021-04-27] MEDS: Ibuprofen 400 MG Tab PO PRN ×3 (01:18→19:30)
[2021-04-27] MEDS: Acetaminophen 325 MG Tab PO PRN ×3 (01:22→19:30)
[2021-04-27] MEDS: Amoxicillin/Clavulanate K 500-125 MG Tab PO SCH ×3 (06:36→21:17)
[2021-04-27] MEDS: Omeprazole 20 MG Cap.CR PO SCH (06:36)
[2021-04-27] MEDS: Heparin Sodium 5,000 Units/ML Vial SUBCUT SCH ×3 (06:36→21:17)
[2021-04-27] MEDS: Budesonide 0.5 MG/2 ML Neb Susp NEB SCH ×2 (07:51→18:12)
[2021-04-27] MEDS ORDERED: Multivitamins, Therapeutic with Minerals Tab PO SCH (08:00)
[2021-04-27] MEDS: Thiamine 100 MG Tab PO SCH (08:27)
[2021-04-27] MEDS: DULoxetine 30 MG Cap PO SCH (08:27)
[2021-04-27] MEDS: Folic Acid 1 MG Tab PO SCH (08:27)
[2021-04-27] MEDS: predniSONE 20 MG Tab PO SCH (08:27)
[2021-04-27] MEDS: Gabapentin 300 MG Cap PO SCH ×3 (08:27→21:17)
[2021-04-27] MEDS: Nicotine 14 MG/24 Hr Patch TRDERM SCH (08:49)
[2021-04-27] MEDS: Silver Sulfadiazine 1% Crm 50 GM Tube TOP SCH ×2 (11:01→22:27)
[2021-04-27] MEDS: Multivitamin Tab PO SCH (12:22)
[2021-04-27] MEDS: oxyCODONE 5 MG Tab PO PRN ×2 (15:41→21:51)
[2021-04-28] MEDS: Albuterol/Ipratropium 3.0-0.5 MG/3 ML Neb Soln NEB SCH ×4 (01:02→18:35)
[2021-04-28] MEDS: Docusate Sodium 100 MG Cap PO PRN (02:32)
[2021-04-28] MEDS: Amoxicillin/Clavulanate K 500-125 MG Tab PO SCH ×3 (05:41→21:20)
[2021-04-28] MEDS: Heparin Sodium 5,000 Units/ML Vial SUBCUT SCH (05:41)
[2021-04-28] MEDS: Omeprazole 20 MG Cap.CR PO SCH (05:41)
[2021-04-28] MEDS: Budesonide 0.5 MG/2 ML Neb Susp NEB SCH ×2 (07:43→18:35)
[2021-04-28] MEDS: Folic Acid 1 MG Tab PO SCH (09:34)
[2021-04-28] MEDS: Multivitamin Tab PO SCH (09:34)
[2021-04-28] MEDS: Gabapentin 300 MG Cap PO SCH ×3 (09:35→21:20)
[2021-04-28] MEDS: Thiamine 100 MG Tab PO SCH (09:35)
[2021-04-28] MEDS: DULoxetine 30 MG Cap PO SCH (09:35)
[2021-04-28] MEDS: predniSONE 20 MG Tab PO SCH (09:36)
[2021-04-28] MEDS: Ibuprofen 400 MG Tab PO PRN (09:42)
[2021-04-28] MEDS: oxyCODONE 5 MG Tab PO PRN (09:43)
[2021-04-28] MEDS: Nicotine 14 MG/24 Hr Patch TRDERM SCH (09:44)
[2021-04-28] MEDS: Silver Sulfadiazine 1% Crm 50 GM Tube TOP SCH ×2 (10:15→22:47)
[2021-04-28] MEDS ORDERED: oxyCODONE 5 MG Tab PO PRN (16:12)
[2021-04-28] MEDS: Acetaminophen 325 MG Tab PO PRN (21:21)
[2021-04-29] MEDS: Albuterol/Ipratropium 3.0-0.5 MG/3 ML Neb Soln NEB SCH ×5 (01:23→18:24)
[2021-04-29] MEDS: Temazepam 15 MG Cap PO PRN ×2 (03:30→23:16)
[2021-04-29] MEDS: Omeprazole 20 MG Cap.CR PO SCH (05:18)
[2021-04-29] MEDS: Amoxicillin/Clavulanate K 500-125 MG Tab PO SCH ×3 (05:19→21:00)
[2021-04-29] MEDS: Budesonide 0.5 MG/2 ML Neb Susp NEB SCH ×2 (08:02→18:24)
[2021-04-29] MEDS: predniSONE 20 MG Tab PO SCH (08:52)
[2021-04-29] MEDS: Multivitamin Tab PO SCH (08:52)
[2021-04-29] MEDS: Gabapentin 300 MG Cap PO SCH ×3 (08:52→20:58)
[2021-04-29] MEDS: Folic Acid 1 MG Tab PO SCH (08:52)
[2021-04-29] MEDS: Thiamine 100 MG Tab PO SCH (08:52)
[2021-04-29] MEDS: DULoxetine 30 MG Cap PO SCH (08:52)
[2021-04-29] MEDS: Nicotine 14 MG/24 Hr Patch TRDERM SCH (08:53)
[2021-04-29] MEDS: Silver Sulfadiazine 1% Crm 50 GM Tube TOP SCH ×2 (09:45→21:11)
[2021-04-29] MEDS: Acetaminophen 325 MG Tab PO PRN (14:05)
--- NOTE | 2021-04-29 15:18 | PCM.PN ---
- General Info Date of Service: 04/28/21 - Patient Data Vitals - Most Recent: Last Vital Signs Temp 97.2 F 04/29/21 08:00 Pulse 88 04/29/21 08:00 Resp 18 04/29/21 08:00 BP 142/87 H 04/29/21 08:00 Pulse Ox 94 L 04/29/21 08:00 Weight - Most Recent: 125 lb 6.4 oz I&O - Last 24 Hours: Intake & Output 04/29/21 04/29/21 04/29/21 06:59 14:59 22:59 Intake Total 300 Output Total 525 Balance -225 Med Orders - Current: Current Medications Acetaminophen (Acetaminophen 325 Mg Tab) 650 mg PO Q4H PRN PRN Reason: Pain Last Admin: 04/29/21 14:05 Dose: 650 mg Documented by: Albuterol/Ipratropium (Albuterol/Ipratropium 3.0-0.5 Mg/3 Ml Neb Soln) 3 ml NEB Q2H PRN PRN Reason: sob Albuterol/Ipratropium (Albuterol/Ipratropium 3.0-0.5 Mg/3 Ml Neb Soln) 3 ml NEB Q6HRRT [facility] Last Admin: 04/29/21 13:55 Dose: 3 ml Documented by: Amoxicillin/Clavulanate Potassium (Amoxicillin/Clavulanate K 500-125 Mg Tab) 1 tab PO Q8HR [facility] Stop: 04/29/21 22:01 Last Admin: 04/29/21 14:04 Dose: 1 tab Documented by: Budesonide (Budesonide 0.5 Mg/2 Ml Neb Susp) 0.5 mg NEB BIDRT [facility] Last Admin: 04/29/21 08:02 Dose: 0.5 mg Documented by: Docusate Sodium (Docusate Sodium 100 Mg Cap) 100 mg PO BID PRN PRN Reason: Constipation Last Admin: 04/28/21 02:32 Dose: 100 mg Documented by: Duloxetine HCl (Duloxetine 30 Mg Cap) 60 mg PO DAILY [facility] Last Admin: 04/29/21 08:52 Dose: 60 mg Documented by: Folic Acid (Folic Acid 1 Mg Tab) 1 mg PO DAILY [facility] Last Admin: 04/29/21 08:52 Dose: 1 mg Documented by: Gabapentin (Gabapentin 300 Mg Cap) 300 mg PO TID [facility] Last Admin: 04/29/21 14:04 Dose: 300 mg Documented by: Multivitamins/Minerals/Vitamin C (Multivitamin Tab) 1 tab PO WITHBREAKFAST [facility] Last Admin: 04/29/21 08:52 Dose: 1 tab Documented by: Nicotine (Nicotine 14 Mg/24 Hr Patch) 14 mg TRDERM DAILY [facility] Last Admin: 04/29/21 08:53 Dose: 14 mg Documented by: Omeprazole (Omeprazole 20 Mg Cap.Cr) 20 mg PO ACBRK [facility] Last Admin: 04/29/21 05:18 Dose: 20 mg Documented by: Oxycodone HCl (Oxycodone 5 Mg Tab) 5 mg PO Q12H PRN PRN Reason: Pain Prednisone (Prednisone 20 Mg Tab) 40 mg PO WITHBREAKFAST [facility] Stop: 04/30/21 08:00 Last Admin: 04/29/21 08:52 Dose: 40 mg Documented by: Silver Sulfadiazine (Silver Sulfadiazine 1% Crm 50 Gm Tube) 1 gm TOP BID [facility] Last Admin: 04/29/21 09:45 Dose: 1 gm Documented by: Sodium Chloride (Sodium Chloride 0.9% 10 Ml Syringe) 10 ml FLUSH ASDIRECTED PRN PRN Reason: IV Use Temazepam (Temazepam 15 Mg Cap) 15 mg PO BEDTIME PRN PRN Reason: Sleep Last Admin: 04/29/21 03:30 Dose: 15 mg Documented by: Thiamine HCl (Thiamine 100 Mg Tab) 100 mg PO DAILY [facility] Last Admin: 04/29/21 08:52 Dose: 100 mg Documented by: Discontinued Medications Baclofen (Baclofen 10 Mg Tab) 5 mg PO Q6H PRN PRN Reason: Muscle Spasm - Painful Heparin Sodium (Porcine) (Heparin Sodium 5,000 Units/Ml Vial) 5,000 units SUBCUT Q8HR [facility] Last Admin: 04/28/21 05:41 Dose: 5,000 units Documented by: Ibuprofen (Ibuprofen 400 Mg Tab) 400 mg PO Q6H PRN PRN Reason: mod pain Last Admin: 04/28/21 09:42 Dose: 400 mg Documented by: Lorazepam (Lorazepam 2 Mg/Ml Sdv) 1 - 3 mg IVPUSH TITRATE PRN; Protocol PRN Reason: [facility] protocol Lorazepam (Lorazepam 1 Mg Tab) 1 - 3 mg PO TITRATE PRN; Protocol PRN Reason: [facility] protocol Multivitamins/Minerals (Multivitamins, Therapeutic With Minerals Tab) 1 tab PO WITHBREAKFAST [facility] Last Admin: 04/27/21 11:01 Dose: 1 tab Documented by: Ondansetron HCl (Ondansetron 4 Mg/2 Ml Sdv) 4 mg IVPUSH Q6H PRN PRN Reason: Nausea/Vomiting Oxycodone HCl (Oxycodone 5 Mg Tab) 5 mg PO Q6H PRN PRN Reason: Pain (severe 7-10) Last Admin: 04/28/21 09:43 Dose: 5 mg Documented by: Oxycodone HCl (Oxycodone 5 Mg Tab) 5 mg PO Q24H PRN PRN Reason: Pain (severe 7-10) Stop: 04/29/21 15:45 Sepsis Event Note - Evaluation Sepsis Screening Result: No Definite Risk - Focused Exam Vital Signs: Vital Signs Temp Pulse Resp BP Pulse Ox 04/29/21 08:00 97.2 F 88 18 142/87 H 94 L - Problem List Review Problem List Initiated/Reviewed/Updated: Yes - My Orders Last 24 Hours: My Active Orders 04/28/21 16:13 SCD [Sequential Compression Device] [OM.PC] Routine 04/29/21 09:27 oxyCODONE 5 mg PO Q12H PRN - Plan Plan:: On 04/28, I stopped heparin DVT prophylaxis and placed seq compression device order (LANCE hose order was already in place). I also put an end-date on prednisone as 04/30.
[2021-04-29] MEDS: Heparin Sodium 5,000 Units/ML Vial SUBCUT SCH (16:45)
[2021-04-29] MEDS: oxyCODONE 5 MG Tab PO PRN (20:58)
[2021-04-30] MEDS: Albuterol/Ipratropium 3.0-0.5 MG/3 ML Neb Soln NEB SCH ×4 (01:21→19:28)
[2021-04-30] MEDS: Omeprazole 20 MG Cap.CR PO SCH (05:48)
[2021-04-30] MEDS: Budesonide 0.5 MG/2 ML Neb Susp NEB SCH ×2 (07:57→19:28)
[2021-04-30] MEDS: DULoxetine 30 MG Cap PO SCH (08:31)
[2021-04-30] MEDS: Multivitamin Tab PO SCH (08:31)
[2021-04-30] MEDS: Folic Acid 1 MG Tab PO SCH (08:31)
[2021-04-30] MEDS: Gabapentin 300 MG Cap PO SCH ×3 (08:31→20:32)
[2021-04-30] MEDS: predniSONE 20 MG Tab PO SCH (08:31)
[2021-04-30] MEDS: Thiamine 100 MG Tab PO SCH (08:31)
[2021-04-30] MEDS: Nicotine 14 MG/24 Hr Patch TRDERM SCH (08:32)
[2021-04-30] MEDS: Silver Sulfadiazine 1% Crm 50 GM Tube TOP SCH ×2 (08:34→20:38)
[2021-04-30] MEDS: oxyCODONE 5 MG Tab PO PRN ×2 (09:13→20:32)
[2021-04-30] MEDS: Acetaminophen 325 MG Tab PO PRN ×2 (19:09→23:34)
[2021-04-30] MEDS: Ibuprofen 400 MG Tab PO PRN (23:19)
[2021-04-30] MEDS: Docusate Sodium 100 MG Cap PO PRN (23:33)
[2021-05-01] MEDS: Albuterol/Ipratropium 3.0-0.5 MG/3 ML Neb Soln NEB SCH ×5 (01:19→23:59)
[2021-05-01] MEDS: Acetaminophen 325 MG Tab PO PRN ×4 (05:43→23:54)
[2021-05-01] MEDS: Omeprazole 20 MG Cap.CR PO SCH (05:43)
[2021-05-01] MEDS: Budesonide 0.5 MG/2 ML Neb Susp NEB SCH ×2 (07:50→18:07)
[2021-05-01] MEDS: Gabapentin 300 MG Cap PO SCH ×4 (08:15→21:24)
[2021-05-01] MEDS: oxyCODONE 5 MG Tab PO PRN ×2 (08:15→21:24)
[2021-05-01] MEDS: Multivitamin Tab PO SCH (08:16)
[2021-05-01] MEDS: Thiamine 100 MG Tab PO SCH (08:17)
[2021-05-01] MEDS: Folic Acid 1 MG Tab PO SCH (08:17)
[2021-05-01] MEDS: DULoxetine 30 MG Cap PO SCH (08:17)
[2021-05-01] MEDS: Silver Sulfadiazine 1% Crm 50 GM Tube TOP SCH ×2 (10:17→23:07)
[2021-05-01] MEDS: Nicotine 21 MG/24 Hr Patch TRDERM SCH (10:18)
[2021-05-01] MEDS: Nicotine 14 MG/24 Hr Patch TRDERM SCH (10:28)
[2021-05-01] MEDS: Ibuprofen 400 MG Tab PO PRN ×2 (14:28→23:44)
[2021-05-01] MEDS ORDERED: Budesonide 0.5 MG/2 ML Neb Susp ONE (18:16)
[2021-05-01] MEDS: Check Patch TRDERM SCH (22:46)
[2021-05-02] MEDS: Temazepam 15 MG Cap PO PRN ×2 (02:04→23:20)
[2021-05-02] MEDS: Omeprazole 20 MG Cap.CR PO SCH (06:36)
[2021-05-02] MEDS: Budesonide 0.5 MG/2 ML Neb Susp NEB SCH ×2 (08:40→18:05)
[2021-05-02] MEDS: Albuterol/Ipratropium 3.0-0.5 MG/3 ML Neb Soln NEB SCH ×3 (08:40→18:05)
[2021-05-02] MEDS: Nicotine 21 MG/24 Hr Patch TRDERM SCH (10:01)
[2021-05-02] MEDS: Folic Acid 1 MG Tab PO SCH (10:02)
[2021-05-02] MEDS: Thiamine 100 MG Tab PO SCH (10:02)
[2021-05-02] MEDS: Gabapentin 300 MG Cap PO SCH ×3 (10:02→21:27)
[2021-05-02] MEDS: Multivitamin Tab PO SCH (10:02)
[2021-05-02] MEDS: DULoxetine 30 MG Cap PO SCH (10:02)
[2021-05-02] MEDS: Silver Sulfadiazine 1% Crm 50 GM Tube TOP SCH ×2 (10:03→23:03)
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
[2021-05-02] MEDS ORDERED: Polyethylene Glycol 3350 Powder 17 GM Packet PO ONE (14:30)
[2021-05-02] MEDS: Nystatin Crm 15 GM Tube TOP SCH ×2 (14:42→21:26)
[2021-05-02] MEDS: oxyCODONE 5 MG Tab PO PRN (14:43)
[2021-05-02] MEDS: Check Patch TRDERM SCH (21:26)
[2021-05-02] MEDS: Acetaminophen 325 MG Tab PO PRN (21:35)
[2021-05-03] MEDS: Albuterol/Ipratropium 3.0-0.5 MG/3 ML Neb Soln NEB SCH ×4 (01:16→18:26)
[2021-05-03] MEDS: Acetaminophen 325 MG Tab PO PRN (02:34)
[2021-05-03] MEDS: Ibuprofen 400 MG Tab PO PRN (03:31)
[2021-05-03] MEDS: Albuterol/Ipratropium 3.0-0.5 MG/3 ML Neb Soln NEB PRN (03:32)
[2021-05-03] MEDS: Omeprazole 20 MG Cap.CR PO SCH (05:10)
[2021-05-03] MEDS: Budesonide 0.5 MG/2 ML Neb Susp NEB SCH ×2 (07:04→18:26)
[2021-05-03] MEDS: Multivitamin Tab PO SCH (08:36)
[2021-05-03] MEDS: Folic Acid 1 MG Tab PO SCH (08:36)
[2021-05-03] MEDS: Nicotine 21 MG/24 Hr Patch TRDERM SCH (08:36)
[2021-05-03] MEDS: DULoxetine 30 MG Cap PO SCH (08:36)
[2021-05-03] MEDS: Thiamine 100 MG Tab PO SCH (08:36)
[2021-05-03] MEDS: Gabapentin 300 MG Cap PO SCH ×2 (08:36→14:22)
[2021-05-03] MEDS: Silver Sulfadiazine 1% Crm 50 GM Tube TOP SCH (08:40)
[2021-05-03] MEDS: Nystatin Crm 15 GM Tube TOP SCH (08:41)
[2021-05-03] MEDS: oxyCODONE 5 MG Tab PO PRN (08:47)
[2021-05-04] MEDS: Docusate Sodium 100 MG Cap PO PRN (00:24)
[2021-05-04] MEDS: oxyCODONE 5 MG Tab PO PRN ×2 (00:24→11:51)
[2021-05-04] MEDS: Temazepam 15 MG Cap PO PRN (00:24)
[2021-05-04] MEDS: Gabapentin 300 MG Cap PO SCH ×4 (00:25→21:09)
[2021-05-04] MEDS: Nystatin Crm 15 GM Tube TOP SCH ×3 (00:26→21:10)
[2021-05-04] MEDS: Check Patch TRDERM SCH ×2 (00:27→21:09)
[2021-05-04] MEDS: Silver Sulfadiazine 1% Crm 50 GM Tube TOP SCH ×2 (01:07→11:58)
[2021-05-04] MEDS: Albuterol/Ipratropium 3.0-0.5 MG/3 ML Neb Soln NEB SCH ×4 (01:08→18:18)
[2021-05-04] MEDS: Albuterol/Ipratropium 3.0-0.5 MG/3 ML Neb Soln NEB PRN (03:34)
[2021-05-04] MEDS: Omeprazole 20 MG Cap.CR PO SCH (05:44)
[2021-05-04] MEDS: Budesonide 0.5 MG/2 ML Neb Susp NEB SCH ×2 (06:58→18:18)
[2021-05-04] MEDS: Nicotine 21 MG/24 Hr Patch TRDERM SCH (08:43)
[2021-05-04] MEDS: Thiamine 100 MG Tab PO SCH (08:44)
[2021-05-04] MEDS: DULoxetine 30 MG Cap PO SCH (08:45)
[2021-05-04] MEDS: Multivitamin Tab PO SCH (08:45)
[2021-05-04] MEDS: Folic Acid 1 MG Tab PO SCH (08:45)
[2021-05-04] MEDS: Ibuprofen 400 MG Tab PO PRN ×2 (11:48→23:33)
[2021-05-04] MEDS ORDERED: Albuterol 6.7 GM Inhaler INH PRN (15:20)
[2021-05-04] MEDS ORDERED: Albuterol/Ipratropium 3.0-0.5 MG/3 ML Neb Soln NEB PRN (15:20)
[2021-05-04] MEDS ORDERED: Formoterol/Mometasone 200-5 MCG 8.8 GM Inhaler IH SCH (21:00)
[2021-05-04] MEDS: Formoterol/Mometasone 200-5 MCG 8.8 GM Inhaler IH SCH (23:25)
[2021-05-05] MEDS: oxyCODONE 5 MG Tab PO PRN ×2 (00:26→12:41)
[2021-05-05] MEDS: Silver Sulfadiazine 1% Crm 50 GM Tube TOP SCH ×2 (00:29→12:45)
[2021-05-05] MEDS: Albuterol/Ipratropium 3.0-0.5 MG/3 ML Neb Soln NEB SCH ×2 (02:08→07:07)
[2021-05-05] MEDS: Omeprazole 20 MG Cap.CR PO SCH (05:27)
[2021-05-05] MEDS: Acetaminophen 325 MG Tab PO PRN (05:31)
[2021-05-05] MEDS: Temazepam 15 MG Cap PO PRN (06:51)
[2021-05-05] MEDS: Budesonide 0.5 MG/2 ML Neb Susp NEB SCH (07:07)
[2021-05-05] MEDS: Thiamine 100 MG Tab PO SCH (08:28)
[2021-05-05] MEDS: Multivitamin Tab PO SCH (08:28)
[2021-05-05] MEDS: Nicotine 21 MG/24 Hr Patch TRDERM SCH (08:28)
[2021-05-05] MEDS: Gabapentin 300 MG Cap PO SCH ×2 (08:28→13:43)
[2021-05-05] MEDS: Folic Acid 1 MG Tab PO SCH (08:28)
[2021-05-05] MEDS: DULoxetine 30 MG Cap PO SCH (08:28)
[2021-05-05] MEDS: Nystatin Crm 15 GM Tube TOP SCH (08:29)
[2021-05-05 08:33] VITALS: BP 112/78; PULSE 90
[2021-05-05] MEDS ORDERED: TIOTROPIUM BROMIDE INH SCH (09:00)
[2021-05-05] MEDS ORDERED: Non-Formulary Medication 1 Each (Duloxetine [Cymbalta] 60 MG Cap) PO SCH (09:00)
[2021-05-05] MEDS: Formoterol/Mometasone 200-5 MCG 8.8 GM Inhaler IH SCH (11:56)
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
== END 2021-05-05 14:50 | disposition home or self-care (01) | DRG 949 ==
LOC: DL.MS 15:06
PROVIDERS: ADMIT Internal Medicine; ATTEND Internal Medicine
DX: T22.232D Burn of second degree of left upper arm, subsequent encounter (principal); E87.1 Hypo-osmolality and hyponatremia; F10.230 Alcohol dependence with withdrawal, uncomplicated; J44.9 Chronic obstructive pulmonary disease, unspecified; H54.7 Unspecified visual loss; E78.00 Pure hypercholesterolemia, unspecified; I10 Essential (primary) hypertension; K21.9 Gastro-esophageal reflux disease without esophagitis; G62.9 Polyneuropathy, unspecified; H53.2 Diplopia; F41.9 Anxiety disorder, unspecified; F32.A Depression, unspecified; M62.838 Other muscle spasm; K59.00 Constipation, unspecified; B37.9 Candidiasis, unspecified; F17.210 Nicotine dependence, cigarettes, uncomplicated; Z79.899 Other long term (current) drug therapy
CPT/HCPCS: 87070; 94640; 97110-GO; 97110-GP; 97116-GP; 97161-GP; 97165-GO; 97530-GP; A9270-GY; J1644; J7512; J7620-GY

== ENCOUNTER 2021-05-12 16:00 | Emergency (ER) | payer MEDICARE, MEDICAID ==
[2021-05-12 20:22] VITALS: BP 118/92; PULSE 104
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
[2021-05-12 21:35] LABS: ANION GAP 7.8 mEq/L (7-13); CHLORIDE,CL 96 mmol/L (98-107); SODIUM,NA 132 mmol/L (136-145)
[2021-05-12] MEDS ORDERED: Furosemide 20 MG Tab PO ONE (21:43)
== END 2021-05-12 22:10 | disposition home or self-care (01) ==
LOC: DL.ED 16:00
DX: L03.115 Cellulitis of right lower limb (principal); L03.116 Cellulitis of left lower limb; R60.0 Localized edema; E87.1 Hypo-osmolality and hyponatremia; E78.00 Pure hypercholesterolemia, unspecified; I10 Essential (primary) hypertension; K21.9 Gastro-esophageal reflux disease without esophagitis; J44.9 Chronic obstructive pulmonary disease, unspecified; Z72.0 Tobacco use; Z79.899 Other long term (current) drug therapy
CPT/HCPCS: 36415; 80053; 83880; 84484; 85025; 86140; 99283; A9270-GY

== ENCOUNTER 2021-05-21 17:49 | Inpatient (IN) | payer MEDICARE, MEDICAID ==
[2021-05-21] MEDS ORDERED: Sodium Chloride 0.9% 1,000 ML IV ONE (17:53)
[2021-05-21] MEDS ORDERED: Acetaminophen 500 MG Tab PO ONE (17:54)
--- NOTE | 2021-05-21 18:06 | EDM.PDOC ---
<Matt Cortez Taina - Last Filed: 05/21/21 18:16> ED HPI GENERAL MEDICAL PROBLEM - General Chief Complaint: Respiratory Problem Stated Complaint: AMBULANCE Time Seen by Provider: 05/21/21 18:01 Source of Information: Reports: Patient History Limitations: Reports: No Limitations - History of Present Illness INITIAL COMMENTS - FREE TEXT/NARRATIVE: 55 y/o M was at home and a home health RN was evaluating him. Pt was receiving treatment for a burn to his L shoulder and lower leg cellulitis. The RN noticed that the pt was hypoxic at 73%ra. Pt no normally on o2. Tachy 120s. EMS was called and transported pt to hospital. Hx of copd, alcoholism, smoking. Pt has been at home drinking all day. He c/o some sob. Denies rodriguez, cp, abd pn, pelvic pain, new ext pain. He reports his cellulitis is improving. - Related Data Allergies Allergy/AdvReac Type Severity Reaction Status Date / Time No Known Allergies Allergy Verified 05/21/21 17:51 Home Meds: Home Meds DULoxetine [Cymbalta] 60 mg PO DAILY 07/20/17 [History] Omeprazole 20 mg PO DAILY 07/20/17 [History] Fluticasone Propion/Salmeterol [Wixela 500-50 Inhub] 1 puff IH BID 07/22/20 [History] Tiotropium [place] [Spiriva Respimat] 2 inh INH DAILY 07/22/20 [History] Albuterol/Ipratropium [DuoNeb 3.0-0.5 MG/3 ML] 3 ml NEB Q4H PRN 04/19/21 [History] Gabapentin [Neurontin] 600 mg PO TID 04/19/21 [History] Albuterol Sulfate [Proair Hfa] 1 puff INH Q2H PRN 04/20/21 [History] Docusate Sodium [Colace] 100 mg PO BID PRN 30 Days #60 cap 05/05/21 [Rx] Folic Acid 1 mg PO DAILY tablet 05/05/21 [Rx] Multivitamins [Tab-A-Cristina] 1 tab PO WITHBREAKFAST tablet 05/05/21 [Rx] Nystatin [Nystatin Crm] 1 applic TOP BID 30 Days #1 tube 05/05/21 [Rx] Silver Sulfadiazine [Silvadene 1% Cream 50 GM] 1 applic TOP DAILY #3 tube 05/05/21 [Rx] Thiamine [Vitamin B-1] 100 mg PO DAILY #30 tablet 05/05/21 [Rx] oxyCODONE 5 mg PO DAILY PRN #10 tablet 05/05/21 [Rx] Past Medical History - Past Health History Medical/Surgical History: Denies Medical/Surgical History HEENT History: Reports: Impaired Vision, Other (See Below) Other HEENT History: double vision Cardiovascular History: Reports: High Cholesterol, Hypertension Respiratory History: Reports: Asthma, Bronchitis, Recurrent, COPD, Pneumonia, Recurrent Gastrointestinal History: Reports: GERD, PUD Genitourinary History: Reports: None Musculoskeletal History: Reports: Fracture, Other (See Below) Other Musculoskeletal History: PERTHES DISEASE, Carpal Tunnel Neurological History: Reports: Neuropathy, Peripheral, Other (See Below) 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 Psychiatric History: Reports: Addiction, Anxiety, Depression Endocrine/Metabolic History: Reports: None Hematologic History: Reports: None Immunologic History: Reports: None Oncologic (Cancer) History: Reports: None Dermatologic History: Reports: None - Infectious Disease History Infectious Disease History: Reports: Chicken Pox Other Infectious Disease History: unkown - Past Surgical History Head Surgeries/Procedures: Reports: None HEENT Surgical History: Reports: Other (See Below) Other HEENT Surgeries/Procedures: RIGHT EAR SURGERY - REATTACHEMENT Cardiovascular Surgical History: Reports: None Respiratory Surgical History: Reports: Other (See Below) Other Respiratory Surgeries/Procedures: bronchoscopy GI Surgical History: Reports: EGD Other GI Surgeries/Procedures: SMALL BOWEL CYST SURGERY Male Surgical History: Reports: None Endocrine Surgical History: Reports: None Neurological Surgical History: Reports: C-Spine Musculoskeletal Surgical History: Reports: Carpal Tunnel Other Musculoskeletal Surgeries/Procedures:: CERVICAL NECK SURGERY. RIGHT WRIST FACTRURE SURGERY Oncologic Surgical History: Reports: None Dermatological Surgical History: Reports: None Social & Family History - Family History Family Medical History: No Pertinent Family History Respiratory: Reports: COPD Endocrine/Metabolic: Reports: Diabetes, type II Oncologic: Reports: Lung - Caffeine Use Caffeine Use: Reports: Coffee - Living Situation & Occupation Living situation: Reports: with Family Occupation: Unemployed ED ROS GENERAL - Review of Systems Review Of Systems: Comprehensive ROS is negative, except as noted in HPI. ED EXAM, GENERAL - Physical Exam Exam: See Below Exam Limited By: Intoxication General Appearance: Alert Eye Exam: Bilateral Eye: PERRL (sluggish with horizontal nystagmus) Ears: Normal External Exam Nose: Normal Inspection, Normal Mucosa, No Blood Throat/Mouth: Normal Inspection, Normal Lips, Normal Teeth, Normal Gums, Normal Oropharynx, Normal Voice, No Airway Compromise Head: Atraumatic, Normocephalic Neck: Normal Inspection, Supple, Non-Tender, Full Range of Motion Respiratory/Chest: Other (course breath sounds on the L, clear R) Cardiovascular: Normal Peripheral Pulses, Regular Rate, Rhythm, No Edema, No Gallop, No JVD, No Murmur, No Rub GI/Abdominal: Soft, Non-Tender (Male) Exam: Deferred Rectal (Males) Exam: Deferred Back Exam: Normal Inspection, Full Range of Motion Extremities: Normal Inspection, Normal Range of Motion, Non-Tender, Normal Capillary Refill, No Pedal Edema Neurological: Alert, Oriented, CN II-XII Intact, Normal Cognition, Normal Gait, Normal Reflexes, No Motor/Sensory Deficits Skin Exam: Warm, Dry, Intact #1 Interpretation EKG Date: 05/21/21 Time: 18:10 Rhythm: Other (sinus tach) [place]: Normal P-Wave: Present QRS: Normal ST-T: Normal QT: Normal Departure - Departure Disposition: Admitted As Inpatient 67 Clinical Impression: Hypoxia, COPD exacerbation - Discharge Information Care Plan Goals: Discussed the patient's history, examination, lab, x-ray and EKG results with Dr. Cooper. Dr. Cooper accepted the patient for continued evaluation and management as an inpatient at [facility] in [place]. Sepsis Event Note (ED) - Evaluation Sepsis Screening Result: No Definite Risk <Elliott Francois - Last Filed: 05/21/21 20:37> #2 Interpretation EKG Date: 05/21/21 Time: 19:40 Rhythm: Other (Sinus tach) Rate (Beats/Min): 118 [place]: Normal P-Wave: Present QRS: Normal ST-T: Normal QT: Normal Comparison: No Change Course - Vital Signs Last Recorded V/S: Last Vital Signs Temp 99.2 F 05/21/21 17:52 Pulse 122 H 05/21/21 19:16 Resp 24 H 05/21/21 19:29 BP 116/67 05/21/21 19:16 Pulse Ox 84 L 12/18/21 19:29 - Orders/Labs/Meds Orders: Active Orders 24 hr Category Date Time Status Peripheral IV Care [RC] . DIRECTED Care 05/21/21 17:52 Active RT Aerosol Therapy [RC] ASDIRECTED Care 05/21/21 18:28 Active CARBOXYHEMOGLOBIN [BG] Stat Lab 05/21/21 19:36 Ordered CULTURE BLOOD [BC] Stat Lab 05/21/21 18:02 Received CULTURE BLOOD [BC] Stat Lab 05/21/21 18:06 Received REFLEX LACTIC ACID YES OR NO [CHEM] Routine Lab 05/21/21 18:47 Received Sodium Chloride 0.9% [Saline Flush] Med 05/21/21 17:51 Active 10 ml FLUSH ASDIRECTED PRN Blood Culture x2 Reflex Set [OM.PC] Stat Oth 05/21/21 17:53 Ordered Peripheral IV Insertion Adult [OM.PC] Routine Oth 05/21/21 17:52 Ordered Medication Orders Sodium Chloride (Sodium Chloride 0.9% 10 Ml Syringe) 10 ml FLUSH ASDIRECTED PRN PRN Reason: Keep Vein Open Last Admin: 05/21/21 18:15 Dose: 10 ml Documented by: MILTON Labs: Laboratory Tests 05/21/21 05/21/21 05/21/21 Range/Units 17:57 17:57 17:57 WBC (5.0-10.0) 10^3/uL RBC (4.6-6.2) 10^6/uL Hgb (14.0-18.0) g/dL Hct (40.0-54.0) % MCV (80-100) fL MCH (27.0-34.0) pg MCHC (33.0-35.0) g/dL Plt Count (150-450) 10^3/uL Neut % (Auto) (42.2-75.2) % Lymph % (Auto) (20.5-50.1) % Andrew % (Auto) (2-8) % Eos % (Auto) (1.0-3.0) % Baso % (Auto) (0.0-1.0) % D-Dimer, Quantitative (0-400) ng/mL Sodium (136-145) mmol/L Potassium (3.5-5.1) mmol/L Chloride (98-107) mmol/L Carbon Dioxide (21-32) mmol/L Anion Gap (7-13) mEq/L BUN (7-18) mg/dL Creatinine (0.70-1.30) mg/dL Est Cr Clr Drug Dosing mL/min Estimated GFR (MDRD) BUN/Creatinine Ratio (No establ ref range) Glucose (70-99) mg/dL Lactic Acid (0.4-2.0) mmol/L Calcium (8.5-10.1) mg/dL Magnesium (1.8-2.4) mg/dL Total Bilirubin (0.2-1.0) mg/dL AST (15-37) U/L ALT (16-63) U/L Alkaline Phosphatase (46-116) U/L Troponin I High Sens (<=76) pg/mL C-Reactive Protein (0.0-0.9) mg/dL Total Protein (6.4-8.2) g/dL Albumin (3.4-5.0) g/dL Globulin Albumin/Globulin Ratio Amylase (25-115) U/L Lipase (73-393) U/L Urine Color Yellow (YELLOW) Urine Appearance Clear (CLEAR) Urine pH 6.0 (5.0-9.0) Ur Specific [place] 1.020 (1.005-1.030) Urine Protein Negative (NEGATIVE) Urine Glucose (UA) Negative (NEGATIVE) Urine Ketones 15 H (NEGATIVE) Urine Occult Blood Negative (NEGATIVE) Urine Nitrite Negative (NEGATIVE) Urine Bilirubin Negative (NEGATIVE) Urine Urobilinogen 2.0 H (0.2-1.0) mg/dL Ur Leukocyte Esterase Negative (NEGATIVE) Urine Opiates Screen Negative (NEGATIVE) Ur Oxycodone Screen Negative (NEGATIVE) Urine Methadone Screen Negative (NEGATIVE) Ur Barbiturates Screen Negative (NEGATIVE) U Tricyclic Antidepress Negative (NEGATIVE) Ur Phencyclidine Scrn Negative (NEGATIVE) Ur Amphetamine Screen Negative (NEGATIVE) U Methamphetamines Scrn Negative (NEGATIVE) Urine MDMA Screen Negative (NEGATIVE) U Benzodiazepines Scrn Negative (NEGATIVE) Urine Cocaine Screen Negative (NEGATIVE) U Marijuana (THC) Screen Positive H (NEGATIVE) Ethyl Alcohol (0) mg/dL SARS-CoV-2 RNA (KARIN) Negative (NEGATIVE) 05/21/21 05/21/21 05/21/21 Range/Units 18:02 18:02 18:02 WBC 5.9 (5.0-10.0) 10^3/uL RBC 4.20 L (4.6-6.2) 10^6/uL Hgb 13.4 L (14.0-18.0) g/dL Hct 38.3 L (40.0-54.0) % MCV 91.2 D (80-100) fL MCH 31.9 (27.0-34.0) pg MCHC 35.0 (33.0-35.0) g/dL Plt Count 371 (150-450) 10^3/uL Neut % (Auto) 49.9 (42.2-75.2) % Lymph % (Auto) 24.8 (20.5-50.1) % Andrew % (Auto) 21.4 H (2-8) % Eos % (Auto) 2.7 (1.0-3.0) % Baso % (Auto) 1.2 H (0.0-1.0) % D-Dimer, Quantitative (0-400) ng/mL Sodium 125 L (136-145) mmol/L Potassium 3.6 (3.5-5.1) mmol/L Chloride 86 L (98-107) mmol/L Carbon Dioxide 31 (21-32) mmol/L Anion Gap 11.6 (7-13) mEq/L BUN 5 L (7-18) mg/dL Creatinine 0.68 L (0.70-1.30) mg/dL Est Cr Clr Drug Dosing 91.87 mL/min Estimated GFR (MDRD) > 60 BUN/Creatinine Ratio 7.4 (No establ ref range) Glucose 121 H (70-99) mg/dL Lactic Acid 3.0 H* (0.4-2.0) mmol/L Calcium 7.9 L (8.5-10.1) mg/dL Magnesium 1.3 L (1.8-2.4) mg/dL Total Bilirubin 0.2 (0.2-1.0) mg/dL AST 32 (15-37) U/L ALT 25 (16-63) U/L Alkaline Phosphatase 118 H (46-116) U/L Troponin I High Sens (<=76) pg/mL C-Reactive Protein < 0.2 (0.0-0.9) mg/dL Total Protein 6.3 L (6.4-8.2) g/dL Albumin 3.0 L (3.4-5.0) g/dL Globulin 3.3 Albumin/Globulin Ratio 0.91 Amylase 36 (25-115) U/L Lipase 22 L (73-393) U/L Urine Color (YELLOW) Urine Appearance (CLEAR) Urine pH (5.0-9.0) Ur Specific [place] (1.005-1.030) Urine Protein (NEGATIVE) Urine Glucose (UA) (NEGATIVE) Urine Ketones (NEGATIVE) Urine Occult Blood (NEGATIVE) Urine Nitrite (NEGATIVE) Urine Bilirubin (NEGATIVE) Urine Urobilinogen (0.2-1.0) mg/dL Ur Leukocyte Esterase (NEGATIVE) Urine Opiates Screen (NEGATIVE) Ur Oxycodone Screen (NEGATIVE) Urine Methadone Screen (NEGATIVE) Ur Barbiturates Screen (NEGATIVE) U Tricyclic Antidepress (NEGATIVE) Ur Phencyclidine Scrn (NEGATIVE) Ur Amphetamine Screen (NEGATIVE) U Methamphetamines Scrn (NEGATIVE) Urine MDMA Screen (NEGATIVE) U Benzodiazepines Scrn (NEGATIVE) Urine Cocaine Screen (NEGATIVE) U Marijuana (THC) Screen (NEGATIVE) Ethyl Alcohol 90 (0) mg/dL SARS-CoV-2 RNA (KARIN) (NEGATIVE) 05/21/21 05/21/21 Range/Units 18:02 18:02 WBC (5.0-10.0) 10^3/uL RBC (4.6-6.2) 10^6/uL Hgb (14.0-18.0) g/dL Hct (40.0-54.0) % MCV (80-100) fL MCH (27.0-34.0) pg MCHC (33.0-35.0) g/dL Plt Count (150-450) 10^3/uL Neut % (Auto) (42.2-75.2) % Lymph % (Auto) (20.5-50.1) % Andrew % (Auto) (2-8) % Eos % (Auto) (1.0-3.0) % Baso % (Auto) (0.0-1.0) % D-Dimer, Quantitative < 100 (0-400) ng/mL Sodium (136-145) mmol/L Potassium (3.5-5.1) mmol/L Chloride (98-107) mmol/L Carbon Dioxide (21-32) mmol/L Anion Gap (7-13) mEq/L BUN (7-18) mg/dL Creatinine (0.70-1.30) mg/dL Est Cr Clr Drug Dosing mL/min Estimated GFR (MDRD) BUN/Creatinine Ratio (No establ ref range) Glucose (70-99) mg/dL Lactic Acid (0.4-2.0) mmol/L Calcium (8.5-10.1) mg/dL Magnesium (1.8-2.4) mg/dL Total Bilirubin (0.2-1.0) mg/dL AST (15-37) U/L ALT (16-63) U/L Alkaline Phosphatase (46-116) U/L Troponin I High Sens 10 (<=76) pg/mL C-Reactive Protein (0.0-0.9) mg/dL Total Protein (6.4-8.2) g/dL Albumin (3.4-5.0) g/dL Globulin Albumin/Globulin Ratio Amylase (25-115) U/L Lipase (73-393) U/L Urine Color (YELLOW) Urine Appearance (CLEAR) Urine pH (5.0-9.0) Ur Specific [place] (1.005-1.030) Urine Protein (NEGATIVE) Urine Glucose (UA) (NEGATIVE) Urine Ketones (NEGATIVE) Urine Occult Blood (NEGATIVE) Urine Nitrite (NEGATIVE) Urine Bilirubin (NEGATIVE) Urine Urobilinogen (0.2-1.0) mg/dL Ur Leukocyte Esterase (NEGATIVE) Urine Opiates Screen (NEGATIVE) Ur Oxycodone Screen (NEGATIVE) Urine Methadone Screen (NEGATIVE) Ur Barbiturates Screen (NEGATIVE) U Tricyclic Antidepress (NEGATIVE) Ur Phencyclidine Scrn (NEGATIVE) Ur Amphetamine Screen (NEGATIVE) U Methamphetamines Scrn (NEGATIVE) Urine MDMA Screen (NEGATIVE) U Benzodiazepines Scrn (NEGATIVE) Urine Cocaine Screen (NEGATIVE) U Marijuana (THC) Screen (NEGATIVE) Ethyl Alcohol (0) mg/dL SARS-CoV-2 RNA (KARIN) (NEGATIVE) Meds: Medications Generic Name Dose Route Start Last Admin Trade Name Freq PRN Reason Stop Dose Admin Sodium Chloride 10 ml 05/21/21 17:51 05/21/21 18:15 Sodium Chloride 0.9% 10 Ml Syringe FLUSH 10 ml ASDIRECTED PRN Administration Keep Vein Open Discontinued Medications Generic Name Dose Route Start Last Admin Trade Name Juli PRN Reason Stop Dose Admin Acetaminophen 1,000 mg 05/21/21 17:54 05/21/21 19:14 Acetaminophen 500 Mg Tab PO 05/21/21 17:55 Not Given ONETIME ONE Albuterol/Ipratropium 6 ml 05/21/21 18:28 05/21/21 18:48 Albuterol/Ipratropium 3.0-0.5 Mg/3 Ml Neb Soln NEB 05/21/21 18:29 3 ml ONETIME ONE Administration Sodium Chloride 1,000 mls @ 999 mls/hr 05/21/21 17:53 05/21/21 18:15 Normal Saline IV 05/21/21 18:53 999 mls/hr .BOLUS ONE Administration Departure - Departure Time of Disposition: 20:35 Condition: Fair - Discharge Information *PRESCRIPTION DRUG MONITORING PROGRAM REVIEWED*: Not Applicable *COPY OF PRESCRIPTION DRUG MONITORING REPORT IN PATIENT SALVADOR: Not Applicable Sepsis Event Note (ED) - Focused Exam Vital Signs: Vital Signs Temp Pulse Resp BP Pulse Ox Pulse Ox 05/21/21 19:29 24 H 84 L 05/21/21 19:16 122 H 24 H 116/67 94 L 05/21/21 18:48 93 L 05/21/21 17:52 99.2 F 120 H 20 114/75 74 L - My Orders Last 24 Hours: My Active Orders 05/21/21 19:36 CARBOXYHEMOGLOBIN [BG] Stat - Assessment/Plan Last 24 Hours: My Active Orders 05/21/21 19:36 CARBOXYHEMOGLOBIN [BG] Stat
[2021-05-21] MEDS: Sodium Chloride 0.9% 10 ML Syringe FLUSH PRN (18:15)
[2021-05-21 18:28] LABS: AMPHETAMINES,URINE NEGATIVE (NEGATIVE); BARBITURATES,URINE NEGATIVE (NEGATIVE); BENZODIAZEPINE,URINE NEGATIVE (NEGATIVE); MDMA (ECSTASY), URINE NEGATIVE (NEGATIVE); METHADONE,URINE NEGATIVE (NEGATIVE); METHAMPHETAMINES,URINE NEGATIVE (NEGATIVE); OPIATES,URINE NEGATIVE (NEGATIVE); OXYCODONE,URINE NEGATIVE (NEGATIVE); PHENCYCLIDINE,URINE NEGATIVE (NEGATIVE); TCA,URINE NEGATIVE (NEGATIVE)
[2021-05-21 18:45] LABS: ANION GAP 11.6 mEq/L (7-13); CHLORIDE,CL 86 mmol/L (98-107); SODIUM,NA 125 mmol/L (136-145)
[2021-05-21] MEDS: Albuterol/Ipratropium 3.0-0.5 MG/3 ML Neb Soln NEB ONE ×2 (18:47→18:48)
--- NOTE | 2021-05-21 19:34 | CR ---
PROCEDURE INFORMATION: Exam: XR Chest Exam date and time: 05/21/2021 6:18 PM Age: 55 years old Clinical indication: Shortness of breath; Additional info: SOB hypoxic TECHNIQUE: Imaging protocol: XR of the chest. Views: 1 view. COMPARISON: 1. CR Chest 1V Frontal 04/18/2021 11:39 PM 2. Reference is made to the report from the CT Chest wo Cont 12/25/2019 4:49:27 PM, as the images are not available for direct review. FINDINGS: Lungs: New opacification of the right cardiophrenic angle. New mild blunting of the left lateral costophrenic angle. Pleural spaces: No pneumothorax. Heart/Mediastinum: Unremarkable. Diaphragm: Unchanged elevation of the right hemidiaphragm. Bones/joints: Deformities of the right 4th, 5th, 7th, 8th, and 9th ribs as well as the left lateral 4th, 7th, 8th, 9th ribs. unchanged since 04/18/2021. On the right side, these likely correspond to the multiple old well-healed right-sided rib fractures described on the chest CT report 12/25/2019. However, on the left side, they are indeterminate. IMPRESSION: 1. New opacification of the right cardiophrenic angle, of indeterminate etiology. Leading differential considerations include multi lobar collapse, pneumonia, or less likely lymphoma or neurogenic tumor. Consider further evaluation with CT, if clinically indicated. 2. New mild blunting of the left lateral costophrenic angle, suspicious for a small left pleural effusion. 3. Multiple bilateral rib deformities, which on the right side likely correspond to the previously described old rib fractures seen on the CT 12/25/2019. However, on the left side, they are indeterminate. Particularly in light of the smoking history, cannot entirely exclude osseous metastases, although these deformities may represent additional healed fracture deformities. Suggest further evaluation with chest CT, if clinically indicated.
[2021-05-21] MEDS ORDERED: methylPREDNISolone Sodium Succinate 125 MG/2 ML SDV IVPUSH ONE (20:31)
[2021-05-21] MEDS ORDERED: cefTRIAXone 1 GM in Sodium Chloride 0.9% 50 ML IV ONE (20:31)
[2021-05-21] MEDS ORDERED: LORazepam 2 MG/ML SDV IVPUSH PRN (21:30)
[2021-05-21] MEDS ORDERED: LORazepam 0.5 MG Tab PO PRN (21:30)
[2021-05-21] MEDS ORDERED: Albuterol/Ipratropium 3.0-0.5 MG/3 ML Neb Soln NEB PRN (21:33)
[2021-05-21] MEDS ORDERED: oxyCODONE 5 MG Tab PO PRN (21:37)
[2021-05-21] MEDS ORDERED: Docusate Sodium 100 MG Cap PO PRN (21:39)
[2021-05-21] MEDS ORDERED: Morphine 2 MG/ML SYRINGE IVPUSH PRN (21:39)
[2021-05-21] MEDS ORDERED: Ondansetron 4 MG Tab.DIS PO PRN (21:39)
[2021-05-21] MEDS ORDERED: Temazepam 15 MG Cap PO PRN (21:39)
[2021-05-21] MEDS ORDERED: Ondansetron 4 MG/2 ML SDV IVPUSH PRN (21:39)
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
[2021-05-21] MEDS: Heparin Sodium 5,000 Units/ML Vial SUBCUT SCH (22:30)
[2021-05-21] MEDS: Piperacillin/Tazobactam 3.375 GM in Sodium Chloride 0.9% 100 ML IV SCH (22:30)
[2021-05-21] MEDS ORDERED: Pneumococcal Polyvalent-23 Vaccine 0.5 ML SDV IM ONE (23:41)
[2021-05-22] MEDS: Albuterol/Ipratropium 3.0-0.5 MG/3 ML Neb Soln NEB SCH ×4 (00:55→19:00)
[2021-05-22] MEDS: methylPREDNISolone Sodium Succinate 40 MG/1 ML SDV IVPUSH SCH ×4 (01:01→21:05)
[2021-05-22] MEDS: Piperacillin/Tazobactam 3.375 GM in Sodium Chloride 0.9% 100 ML IV SCH ×4 (04:34→22:19)
[2021-05-22] MEDS: Heparin Sodium 5,000 Units/ML Vial SUBCUT SCH ×3 (06:22→22:23)
[2021-05-22] MEDS: Omeprazole 20 MG Cap.CR PO SCH (06:23)
[2021-05-22 06:36] LABS: ANION GAP 11.4 mEq/L (7-13); CHLORIDE,CL 94 mmol/L (98-107); SODIUM,NA 134 mmol/L (136-145)
[2021-05-22] MEDS ORDERED: Budesonide 0.5 MG/2 ML Neb Susp NEB SCH (07:00)
[2021-05-22] MEDS: Budesonide 0.5 MG/2 ML Neb Susp NEB SCH ×2 (07:34→19:00)
[2021-05-22] MEDS: Sodium Chloride 0.9% 10 ML Syringe FLUSH PRN ×2 (09:00→21:05)
[2021-05-22] MEDS: Gabapentin 300 MG Cap PO SCH ×3 (09:05→21:03)
[2021-05-22] MEDS: Folic Acid 1 MG Tab PO SCH (09:05)
[2021-05-22] MEDS: DULoxetine 30 MG Cap PO SCH (09:05)
[2021-05-22] MEDS: Multivitamins with Iron/Calcium/Folic Acid/Minerals Tab PO SCH (09:05)
[2021-05-22] MEDS: Nicotine 14 MG/24 Hr Patch TRDERM SCH (09:05)
[2021-05-22] MEDS: Thiamine 100 MG Tab PO SCH (09:05)
[2021-05-22] MEDS: Bacitracin Oint 28.35 GM Tube TOP SCH (09:06)
[2021-05-22] MEDS ORDERED: Potassium Chloride 10 MEQ Tab.ER PO ONE (11:12)
--- NOTE | 2021-05-22 11:25 | PCM.PN ---
- General Info Date of Service: 05/22/21 Admission Dx/Problem (Free Text): Admission Diagnosis/Problem Admission Diagnosis/Problem Hypoxia Subjective Update: admitted with acute hypoxemic respiratory failure he is mostly asymptomatic has chronic sob, not worse lately has occasional cough with brownish sputum no associated fever no URTI symptoms overnight remained on [place] oxygen - Patient Data Vitals - Most Recent: Last Vital Signs Temp 98.6 F 05/22/21 08:17 Pulse 95 05/22/21 08:17 Resp 20 05/22/21 08:17 BP 128/78 05/22/21 08:17 Pulse Ox 92 L 05/22/21 08:17 Weight - Most Recent: 117 lb 12.8 oz I&O - Last 24 Hours: Intake & Output 05/21/21 05/22/21 05/22/21 22:59 06:59 14:59 Intake Total 400 Output Total 600 1400 Balance -600 -1000 Lab Results Last 24 Hours: Laboratory Results - last 24 hr 05/21/21 05/21/21 05/21/21 Range/Units 17:57 17:57 17:57 WBC (5.0-10.0) 10^3/uL RBC (4.6-6.2) 10^6/uL Hgb (14.0-18.0) g/dL Hct (40.0-54.0) % MCV (80-100) fL MCH (27.0-34.0) pg MCHC (33.0-35.0) g/dL Plt Count (150-450) 10^3/uL Neut % (Auto) (42.2-75.2) % Lymph % (Auto) (20.5-50.1) % [place] % (Auto) (2-8) % Eos % (Auto) (1.0-3.0) % Baso % (Auto) (0.0-1.0) % D-Dimer, Quantitative (0-400) ng/mL ABG Carboxyhemoglobin (0-10) % Sodium (136-145) mmol/L Potassium (3.5-5.1) mmol/L Chloride (98-107) mmol/L Carbon Dioxide (21-32) mmol/L Anion Gap (7-13) mEq/L BUN (7-18) mg/dL Creatinine (0.70-1.30) mg/dL Est Cr Clr Drug Dosing mL/min Estimated GFR (MDRD) BUN/Creatinine Ratio (No establ ref range) Glucose (70-99) mg/dL Lactic Acid (0.4-2.0) mmol/L Calcium (8.5-10.1) mg/dL Magnesium (1.8-2.4) mg/dL Total Bilirubin (0.2-1.0) mg/dL AST (15-37) U/L ALT (16-63) U/L Alkaline Phosphatase (46-116) U/L Troponin I High Sens (<=76) pg/mL C-Reactive Protein (0.0-0.9) mg/dL Total Protein (6.4-8.2) g/dL Albumin (3.4-5.0) g/dL Globulin Albumin/Globulin Ratio Amylase (25-115) U/L Lipase (73-393) U/L Urine Color Yellow (YELLOW) Urine Appearance Clear (CLEAR) Urine pH 6.0 (5.0-9.0) Ur Specific [place] 1.020 (1.005-1.030) Urine Protein Negative (NEGATIVE) Urine Glucose (UA) Negative (NEGATIVE) Urine Ketones 15 H (NEGATIVE) Urine Occult Blood Negative (NEGATIVE) Urine Nitrite Negative (NEGATIVE) Urine Bilirubin Negative (NEGATIVE) Urine Urobilinogen 2.0 H (0.2-1.0) mg/dL Ur Leukocyte Esterase Negative (NEGATIVE) Urine Opiates Screen Negative (NEGATIVE) Ur Oxycodone Screen Negative (NEGATIVE) Urine Methadone Screen Negative (NEGATIVE) Ur Barbiturates Screen Negative (NEGATIVE) U Tricyclic Antidepress Negative (NEGATIVE) Ur Phencyclidine Scrn Negative (NEGATIVE) Ur Amphetamine Screen Negative (NEGATIVE) U Methamphetamines Scrn Negative (NEGATIVE) Urine MDMA Screen Negative (NEGATIVE) U Benzodiazepines Scrn Negative (NEGATIVE) Urine Cocaine Screen Negative (NEGATIVE) U Marijuana (THC) Screen Positive H (NEGATIVE) Ethyl Alcohol (0) mg/dL SARS-CoV-2 RNA (KARIN) Negative (NEGATIVE) 05/21/21 05/21/21 05/21/21 Range/Units 18:02 18:02 18:02 WBC 5.9 (5.0-10.0) 10^3/uL RBC 4.20 L (4.6-6.2) 10^6/uL Hgb 13.4 L (14.0-18.0) g/dL Hct 38.3 L (40.0-54.0) % MCV 91.2 D (80-100) fL MCH 31.9 (27.0-34.0) pg MCHC 35.0 (33.0-35.0) g/dL Plt Count 371 (150-450) 10^3/uL Neut % (Auto) 49.9 (42.2-75.2) % Lymph % (Auto) 24.8 (20.5-50.1) % [place] % (Auto) 21.4 H (2-8) % Eos % (Auto) 2.7 (1.0-3.0) % Baso % (Auto) 1.2 H (0.0-1.0) % D-Dimer, Quantitative (0-400) ng/mL ABG Carboxyhemoglobin (0-10) % Sodium 125 L (136-145) mmol/L Potassium 3.6 (3.5-5.1) mmol/L Chloride 86 L (98-107) mmol/L Carbon Dioxide 31 (21-32) mmol/L Anion Gap 11.6 (7-13) mEq/L BUN 5 L (7-18) mg/dL Creatinine 0.68 L (0.70-1.30) mg/dL Est Cr Clr Drug Dosing 91.87 mL/min Estimated GFR (MDRD) > 60 BUN/Creatinine Ratio 7.4 (No establ ref range) Glucose 121 H (70-99) mg/dL Lactic Acid 3.0 H* (0.4-2.0) mmol/L Calcium 7.9 L (8.5-10.1) mg/dL Magnesium 1.3 L (1.8-2.4) mg/dL Total Bilirubin 0.2 (0.2-1.0) mg/dL AST 32 (15-37) U/L ALT 25 (16-63) U/L Alkaline Phosphatase 118 H (46-116) U/L Troponin I High Sens (<=76) pg/mL C-Reactive Protein < 0.2 (0.0-0.9) mg/dL Total Protein 6.3 L (6.4-8.2) g/dL Albumin 3.0 L (3.4-5.0) g/dL Globulin 3.3 Albumin/Globulin Ratio 0.91 Amylase 36 (25-115) U/L Lipase 22 L (73-393) U/L Urine Color (YELLOW) Urine Appearance (CLEAR) Urine pH (5.0-9.0) Ur Specific [place] (1.005-1.030) Urine Protein (NEGATIVE) Urine Glucose (UA) (NEGATIVE) Urine Ketones (NEGATIVE) Urine Occult Blood (NEGATIVE) Urine Nitrite (NEGATIVE) Urine Bilirubin (NEGATIVE) Urine Urobilinogen (0.2-1.0) mg/dL Ur Leukocyte Esterase (NEGATIVE) Urine Opiates Screen (NEGATIVE) Ur Oxycodone Screen (NEGATIVE) Urine Methadone Screen (NEGATIVE) Ur Barbiturates Screen (NEGATIVE) U Tricyclic Antidepress (NEGATIVE) Ur Phencyclidine Scrn (NEGATIVE) Ur Amphetamine Screen (NEGATIVE) U Methamphetamines Scrn (NEGATIVE) Urine MDMA Screen (NEGATIVE) U Benzodiazepines Scrn (NEGATIVE) Urine Cocaine Screen (NEGATIVE) U Marijuana (THC) Screen (NEGATIVE) Ethyl Alcohol 90 (0) mg/dL SARS-CoV-2 RNA (KARIN) (NEGATIVE) 05/21/21 05/21/21 05/21/21 Range/Units 18:02 18:02 19:36 WBC (5.0-10.0) 10^3/uL RBC (4.6-6.2) 10^6/uL Hgb (14.0-18.0) g/dL Hct (40.0-54.0) % MCV (80-100) fL MCH (27.0-34.0) pg MCHC (33.0-35.0) g/dL Plt Count (150-450) 10^3/uL Neut % (Auto) (42.2-75.2) % Lymph % (Auto) (20.5-50.1) % [place] % (Auto) (2-8) % Eos % (Auto) (1.0-3.0) % Baso % (Auto) (0.0-1.0) % D-Dimer, Quantitative < 100 (0-400) ng/mL ABG Carboxyhemoglobin 6.7 (0-10) % Sodium (136-145) mmol/L Potassium (3.5-5.1) mmol/L Chloride (98-107) mmol/L Carbon Dioxide (21-32) mmol/L Anion Gap (7-13) mEq/L BUN (7-18) mg/dL Creatinine (0.70-1.30) mg/dL Est Cr Clr Drug Dosing mL/min Estimated GFR (MDRD) BUN/Creatinine Ratio (No establ ref range) Glucose (70-99) mg/dL Lactic Acid (0.4-2.0) mmol/L Calcium (8.5-10.1) mg/dL Magnesium (1.8-2.4) mg/dL Total Bilirubin (0.2-1.0) mg/dL AST (15-37) U/L ALT (16-63) U/L Alkaline Phosphatase (46-116) U/L Troponin I High Sens 10 (<=76) pg/mL C-Reactive Protein (0.0-0.9) mg/dL Total Protein (6.4-8.2) g/dL Albumin (3.4-5.0) g/dL Globulin Albumin/Globulin Ratio Amylase (25-115) U/L Lipase (73-393) U/L Urine Color (YELLOW) Urine Appearance (CLEAR) Urine pH (5.0-9.0) Ur Specific [place] (1.005-1.030) Urine Protein (NEGATIVE) Urine Glucose (UA) (NEGATIVE) Urine Ketones (NEGATIVE) Urine Occult Blood (NEGATIVE) Urine Nitrite (NEGATIVE) Urine Bilirubin (NEGATIVE) Urine Urobilinogen (0.2-1.0) mg/dL Ur Leukocyte Esterase (NEGATIVE) Urine Opiates Screen (NEGATIVE) Ur Oxycodone Screen (NEGATIVE) Urine Methadone Screen (NEGATIVE) Ur Barbiturates Screen (NEGATIVE) U Tricyclic Antidepress (NEGATIVE) Ur Phencyclidine Scrn (NEGATIVE) Ur Amphetamine Screen (NEGATIVE) U Methamphetamines Scrn (NEGATIVE) Urine MDMA Screen (NEGATIVE) U Benzodiazepines Scrn (NEGATIVE) Urine Cocaine Screen (NEGATIVE) U Marijuana (THC) Screen (NEGATIVE) Ethyl Alcohol (0) mg/dL SARS-CoV-2 RNA (KARIN) (NEGATIVE) 05/21/21 05/22/21 05/22/21 Range/Units 21:40 05:20 05:20 WBC 1.7 L (5.0-10.0) 10^3/uL RBC 4.82 (4.6-6.2) 10^6/uL Hgb 15.2 D (14.0-18.0) g/dL Hct 44.3 (40.0-54.0) % MCV 91.9 (80-100) fL MCH 31.5 (27.0-34.0) pg MCHC 34.3 (33.0-35.0) g/dL Plt Count 387 (150-450) 10^3/uL Neut % (Auto) (42.2-75.2) % Lymph % (Auto) (20.5-50.1) % [place] % (Auto) (2-8) % Eos % (Auto) (1.0-3.0) % Baso % (Auto) (0.0-1.0) % D-Dimer, Quantitative (0-400) ng/mL ABG Carboxyhemoglobin (0-10) % Sodium 134 L (136-145) mmol/L Potassium 3.4 L (3.5-5.1) mmol/L Chloride 94 L (98-107) mmol/L Carbon Dioxide 32 (21-32) mmol/L Anion Gap 11.4 (7-13) mEq/L BUN 5 L (7-18) mg/dL Creatinine 0.54 L (0.70-1.30) mg/dL Est Cr Clr Drug Dosing 115.68 mL/min Estimated GFR (MDRD) > 60 BUN/Creatinine Ratio (No establ ref range) Glucose 174 H (70-99) mg/dL Lactic Acid 1.0 (0.4-2.0) mmol/L Calcium 8.2 L (8.5-10.1) mg/dL Magnesium (1.8-2.4) mg/dL Total Bilirubin (0.2-1.0) mg/dL AST (15-37) U/L ALT (16-63) U/L Alkaline Phosphatase (46-116) U/L Troponin I High Sens (<=76) pg/mL C-Reactive Protein (0.0-0.9) mg/dL Total Protein (6.4-8.2) g/dL Albumin (3.4-5.0) g/dL Globulin Albumin/Globulin Ratio Amylase (25-115) U/L Lipase (73-393) U/L Urine Color (YELLOW) Urine Appearance (CLEAR) Urine pH (5.0-9.0) Ur Specific [place] (1.005-1.030) Urine Protein (NEGATIVE) Urine Glucose (UA) (NEGATIVE) Urine Ketones (NEGATIVE) Urine Occult Blood (NEGATIVE) Urine Nitrite (NEGATIVE) Urine Bilirubin (NEGATIVE) Urine Urobilinogen (0.2-1.0) mg/dL Ur Leukocyte Esterase (NEGATIVE) Urine Opiates Screen (NEGATIVE) Ur Oxycodone Screen (NEGATIVE) Urine Methadone Screen (NEGATIVE) Ur Barbiturates Screen (NEGATIVE) U Tricyclic Antidepress (NEGATIVE) Ur Phencyclidine Scrn (NEGATIVE) Ur Amphetamine Screen (NEGATIVE) U Methamphetamines Scrn (NEGATIVE) Urine MDMA Screen (NEGATIVE) U Benzodiazepines Scrn (NEGATIVE) Urine Cocaine Screen (NEGATIVE) U Marijuana (THC) Screen (NEGATIVE) Ethyl Alcohol (0) mg/dL SARS-CoV-2 RNA (KARIN) (NEGATIVE) Med Orders - Current: Current Medications Acetaminophen (Acetaminophen 325 Mg Tab) 650 mg PO Q4H PRN PRN Reason: Pain (Mild 1-3)/fever Albuterol/Ipratropium (Albuterol/Ipratropium 3.0-0.5 Mg/3 Ml Neb Soln) 3 ml NEB Q6HRRT [facility] Last Admin: 05/22/21 07:34 Dose: 3 ml Documented by: Albuterol/Ipratropium (Albuterol/Ipratropium 3.0-0.5 Mg/3 Ml Neb Soln) 3 ml NEB Q2H PRN PRN Reason: sob Bacitracin (Bacitracin Oint 28.35 Gm Tube) 0 gm TOP DAILY [facility] Last Admin: 05/22/21 09:06 Dose: 1 applic Documented by: Budesonide (Budesonide 0.5 Mg/2 Ml Neb Susp) 0.5 mg NEB BIDRT [facility] Last Admin: 05/22/21 07:34 Dose: Not Given Documented by: Docusate Sodium (Docusate Sodium 100 Mg Cap) 100 mg PO BID PRN PRN Reason: Constipation Duloxetine HCl (Duloxetine 30 Mg Cap) 60 mg PO DAILY [facility] Last Admin: 05/22/21 09:05 Dose: 60 mg Documented by: Folic Acid (Folic Acid 1 Mg Tab) 1 mg PO DAILY [facility] Last Admin: 05/22/21 09:05 Dose: 1 mg Documented by: Gabapentin (Gabapentin 300 Mg Cap) 600 mg PO TID [facility] Last Admin: 05/22/21 09:05 Dose: 600 mg Documented by: Heparin Sodium (Porcine) (Heparin Sodium 5,000 Units/Ml Vial) 5,000 units SUBC UT Q8HR [facility] Last Admin: 05/22/21 06:22 Dose: 5,000 units Documented by: Piperacillin Sod/Tazobactam (Sod 3.375 gm/ Sodium Chloride) 100 mls @ 200 mls/hr IV Q6H [facility] Last Admin: 05/22/21 10:48 Dose: 200 mls/hr Documented by: Vancomycin HCl 1 gm/ Sodium (Chloride) 250 mls @ 166.667 mls/hr IV Q8H [facility] Last Admin: 05/22/21 08:59 Dose: 166.667 mls/hr Documented by: Lorazepam (Lorazepam 2 Mg/Ml Sdv) 0 mg IVPUSH TITRATE PRN; Protocol PRN Reason: ciwa protocol Lorazepam (Lorazepam 0.5 Mg Tab) 0 mg PO TITRATE PRN; Protocol PRN Reason: ciwa protocol Magnesium Oxide (Magnesium Oxide 250 Mg Tab) 250 mg PO BIDMEALS [facility] Stop: 05/22/21 18:01 Last Admin: 05/22/21 09:05 Dose: 250 mg Documented by: Methylprednisolone Sodium Succinate (Methylprednisolone Sodium Succinate 40 Mg/1 Ml Sdv) 40 mg IVPUSH Q6H [facility] Last Admin: 05/22/21 09:00 Dose: 40 mg Documented by: Morphine Sulfate (Morphine 2 Mg/Ml Syringe) 1 mg IVPUSH Q2H PRN PRN Reason: Pain (severe 7-10) Multivitamins/Minerals (Multivitamins With Iron/Calcium/Folic Acid/Minerals Tab) 1 tab PO DAILY [facility] Last Admin: 05/22/21 09:05 Dose: 1 tab Documented by: Nicotine (Nicotine 14 Mg/24 Hr Patch) 14 mg TRDERM DAILY [facility] Last Admin: 05/22/21 09:05 Dose: 14 mg Documented by: Omeprazole (Omeprazole 20 Mg Cap.Cr) 20 mg PO ACBREAKFAST [facility] Last Admin: 05/22/21 06:23 Dose: 20 mg Documented by: Ondansetron HCl (Ondansetron 4 Mg Tab.Dis) 4 mg PO Q4H PRN PRN Reason: nausea, able to take PO Ondansetron HCl (Ondansetron 4 Mg/2 Ml Sdv) 4 mg IVPUSH Q6H PRN PRN Reason: Nausea/Vomiting Oxycodone HCl (Oxycodone 5 Mg Tab) 5 mg PO Q6H PRN PRN Reason: moderate pain Sodium Chloride (Sodium Chloride 0.9% 10 Ml Syringe) 10 ml FLUSH ASDIRECTED PRN PRN Reason: Keep Vein Open Last Admin: 05/22/21 09:00 Dose: 10 ml Documented by: Temazepam (Temazepam 15 Mg Cap) 15 mg PO BEDTIME PRN PRN Reason: Sleep Thiamine HCl (Thiamine 100 Mg Tab) 100 mg PO DAILY [facility] Last Admin: 05/22/21 09:05 Dose: 100 mg Documented by: Vancomycin HCl (Pharmacy To Dose - Vancomycin) 1 dose .XX ASDIRECTED LIBORIO Discontinued Medications Acetaminophen (Acetaminophen 500 Mg Tab) 1,000 mg PO ONETIME ONE Stop: 05/21/21 17:55 Last Admin: 05/21/21 19:14 Dose: Not Given Documented by: Albuterol/Ipratropium (Albuterol/Ipratropium 3.0-0.5 Mg/3 Ml Neb Soln) 6 ml NEB ONETIME ONE Stop: 05/21/21 18:29 Last Admin: 05/21/21 18:48 Dose: 3 ml Documented by: Budesonide (Budesonide 0.5 Mg/2 Ml Neb Susp) 0.5 mg NEB BIDRT [facility] Last Admin: 05/22/21 07:34 Dose: 0.5 mg Documented by: Sodium Chloride (Normal Saline) 1,000 mls @ 999 mls/hr IV .BOLUS ONE Stop: 05/21/21 18:53 Last Admin: 05/21/21 18:15 Dose: 999 mls/hr Documented by: Ceftriaxone Sodium 1 gm/ (Sodium Chloride) 50 mls @ 100 mls/hr IV ONETIME ONE Stop: 05/21/21 21:00 Last Admin: 05/21/21 20:47 Dose: 100 mls/hr Documented by: Vancomycin HCl 1 gm/ Sodium (Chloride) 250 mls @ 166.667 mls/hr IV ONETIME ONE Stop: 05/22/21 00:29 Last Admin: 05/22/21 00:55 Dose: 166.667 mls/hr Documented by: Methylprednisolone Sodium Succinate (Methylprednisolone Sodium Succinate 125 Mg/2 Ml Sdv) 125 mg IVPUSH ONETIME ONE Stop: 05/21/21 20:32 Last Admin: 05/21/21 20:47 Dose: 125 mg Documented by: Pneumococcal Polyvalent Vaccine (Pneumococcal Polyvalent-23 Vaccine 0.5 Ml Sdv) 0.5 ml IM .ONCE ONE Stop: 05/21/21 23:42 Last Admin: 05/22/21 08:29 Dose: Not Given Documented by: Potassium Chloride (Potassium Chloride 10 Meq Tab.Er) 40 meq PO ONETIME ONE Stop: 05/22/21 11:13 - Exam Quality Assessment: Supplemental Oxygen General: Alert, Oriented, Other (cachectic) Lungs: Normal Respiratory Effort, Decreased Breath Sounds Cardiovascular: Regular Rate, Regular Rhythm GI/Abdominal Exam: Normal Bowel Sounds, Soft, Non-Tender Extremities: Normal Range of Motion, No Pedal Edema Skin: Warm Neurological: No New Focal Deficit Psy/Mental Status: Alert, Normal Affect, Normal Mood - Patient Data Lab Results Last 24 hrs: Laboratory Results - last 24 hr 05/21/21 05/21/21 05/21/21 Range/Units 17:57 17:57 17:57 WBC (5.0-10.0) 10^3/uL RBC (4.6-6.2) 10^6/uL Hgb (14.0-18.0) g/dL Hct (40.0-54.0) % MCV (80-100) fL MCH (27.0-34.0) pg MCHC (33.0-35.0) g/dL Plt Count (150-450) 10^3/uL Neut % (Auto) (42.2-75.2) % Lymph % (Auto) (20.5-50.1) % [place] % (Auto) (2-8) % Eos % (Auto) (1.0-3.0) % Baso % (Auto) (0.0-1.0) % D-Dimer, Quantitative (0-400) ng/mL ABG Carboxyhemoglobin (0-10) % Sodium (136-145) mmol/L Potassium (3.5-5.1) mmol/L Chloride (98-107) mmol/L Carbon Dioxide (21-32) mmol/L Anion Gap (7-13) mEq/L BUN (7-18) mg/dL Creatinine (0.70-1.30) mg/dL Est Cr Clr Drug Dosing mL/min Estimated GFR (MDRD) BUN/Creatinine Ratio (No establ ref range) Glucose (70-99) mg/dL Lactic Acid (0.4-2.0) mmol/L Calcium (8.5-10.1) mg/dL Magnesium (1.8-2.4) mg/dL Total Bilirubin (0.2-1.0) mg/dL AST (15-37) U/L ALT (16-63) U/L Alkaline Phosphatase (46-116) U/L Troponin I High Sens (<=76) pg/mL C-Reactive Protein (0.0-0.9) mg/dL Total Protein (6.4-8.2) g/dL Albumin (3.4-5.0) g/dL Globulin Albumin/Globulin Ratio Amylase (25-115) U/L Lipase (73-393) U/L Urine Color Yellow (YELLOW) Urine Appearance Clear (CLEAR) Urine pH 6.0 (5.0-9.0) Ur Specific [place] 1.020 (1.005-1.030) Urine Protein Negative (NEGATIVE) Urine Glucose (UA) Negative (NEGATIVE) Urine Ketones 15 H (NEGATIVE) Urine Occult Blood Negative (NEGATIVE) Urine Nitrite Negative (NEGATIVE) Urine Bilirubin Negative (NEGATIVE) Urine Urobilinogen 2.0 H (0.2-1.0) mg/dL Ur Leukocyte Esterase Negative (NEGATIVE) Urine Opiates Screen Negative (NEGATIVE) Ur Oxycodone Screen Negative (NEGATIVE) Urine Methadone Screen Negative (NEGATIVE) Ur Barbiturates Screen Negative (NEGATIVE) U Tricyclic Antidepress Negative (NEGATIVE) Ur Phencyclidine Scrn Negative (NEGATIVE) Ur Amphetamine Screen Negative (NEGATIVE) U Methamphetamines Scrn Negative (NEGATIVE) Urine MDMA Screen Negative (NEGATIVE) U Benzodiazepines Scrn Negative (NEGATIVE) Urine Cocaine Screen Negative (NEGATIVE) U Marijuana (THC) Screen Positive H (NEGATIVE) Ethyl Alcohol (0) mg/dL SARS-CoV-2 RNA (KARIN) Negative (NEGATIVE) 05/21/21 05/21/21 05/21/21 Range/Units 18:02 18:02 18:02 WBC 5.9 (5.0-10.0) 10^3/uL RBC 4.20 L (4.6-6.2) 10^6/uL Hgb 13.4 L (14.0-18.0) g/dL Hct 38.3 L (40.0-54.0) % MCV 91.2 D (80-100) fL MCH 31.9 (27.0-34.0) pg MCHC 35.0 (33.0-35.0) g/dL Plt Count 371 (150-450) 10^3/uL Neut % (Auto) 49.9 (42.2-75.2) % Lymph % (Auto) 24.8 (20.5-50.1) % [place] % (Auto) 21.4 H (2-8) % Eos % (Auto) 2.7 (1.0-3.0) % Baso % (Auto) 1.2 H (0.0-1.0) % D-Dimer, Quantitative (0-400) ng/mL ABG Carboxyhemoglobin (0-10) % Sodium 125 L (136-145) mmol/L Potassium 3.6 (3.5-5.1) mmol/L Chloride 86 L (98-107) mmol/L Carbon Dioxide 31 (21-32) mmol/L Anion Gap 11.6 (7-13) mEq/L BUN 5 L (7-18) mg/dL Creatinine 0.68 L (0.70-1.30) mg/dL Est Cr Clr Drug Dosing 91.87 mL/min Estimated GFR (MDRD) > 60 BUN/Creatinine Ratio 7.4 (No establ ref range) Glucose 121 H (70-99) mg/dL Lactic Acid 3.0 H* (0.4-2.0) mmol/L Calcium 7.9 L (8.5-10.1) mg/dL Magnesium 1.3 L (1.8-2.4) mg/dL Total Bilirubin 0.2 (0.2-1.0) mg/dL AST 32 (15-37) U/L ALT 25 (16-63) U/L Alkaline Phosphatase 118 H (46-116) U/L Troponin I High Sens (<=76) pg/mL C-Reactive Protein < 0.2 (0.0-0.9) mg/dL Total Protein 6.3 L (6.4-8.2) g/dL Albumin 3.0 L (3.4-5.0) g/dL Globulin 3.3 Albumin/Globulin Ratio 0.91 Amylase 36 (25-115) U/L Lipase 22 L (73-393) U/L Urine Color (YELLOW) Urine Appearance (CLEAR) Urine pH (5.0-9.0) Ur Specific [place] (1.005-1.030) Urine Protein (NEGATIVE) Urine Glucose (UA) (NEGATIVE) Urine Ketones (NEGATIVE) Urine Occult Blood (NEGATIVE) Urine Nitrite (NEGATIVE) Urine Bilirubin (NEGATIVE) Urine Urobilinogen (0.2-1.0) mg/dL Ur Leukocyte Esterase (NEGATIVE) Urine Opiates Screen (NEGATIVE) Ur Oxycodone Screen (NEGATIVE) Urine Methadone Screen (NEGATIVE) Ur Barbiturates Screen (NEGATIVE) U Tricyclic Antidepress (NEGATIVE) Ur Phencyclidine Scrn (NEGATIVE) Ur Amphetamine Screen (NEGATIVE) U Methamphetamines Scrn (NEGATIVE) Urine MDMA Screen (NEGATIVE) U Benzodiazepines Scrn (NEGATIVE) Urine Cocaine Screen (NEGATIVE) U Marijuana (THC) Screen (NEGATIVE) Ethyl Alcohol 90 (0) mg/dL SARS-CoV-2 RNA (KARIN) (NEGATIVE) 05/21/21 05/21/21 05/21/21 Range/Units 18:02 18:02 19:36 WBC (5.0-10.0) 10^3/uL RBC (4.6-6.2) 10^6/uL Hgb (14.0-18.0) g/dL Hct (40.0-54.0) % MCV (80-100) fL MCH (27.0-34.0) pg MCHC (33.0-35.0) g/dL Plt Count (150-450) 10^3/uL Neut % (Auto) (42.2-75.2) % Lymph % (Auto) (20.5-50.1) % [place] % (Auto) (2-8) % Eos % (Auto) (1.0-3.0) % Baso % (Auto) (0.0-1.0) % D-Dimer, Quantitative < 100 (0-400) ng/mL ABG Carboxyhemoglobin 6.7 (0-10) % Sodium (136-145) mmol/L Potassium (3.5-5.1) mmol/L Chloride (98-107) mmol/L Carbon Dioxide (21-32) mmol/L Anion Gap (7-13) mEq/L BUN (7-18) mg/dL Creatinine (0.70-1.30) mg/dL Est Cr Clr Drug Dosing mL/min Estimated GFR (MDRD) BUN/Creatinine Ratio (No establ ref range) Glucose (70-99) mg/dL Lactic Acid (0.4-2.0) mmol/L Calcium (8.5-10.1) mg/dL Magnesium (1.8-2.4) mg/dL Total Bilirubin (0.2-1.0) mg/dL AST (15-37) U/L ALT (16-63) U/L Alkaline Phosphatase (46-116) U/L Troponin I High Sens 10 (<=76) pg/mL C-Reactive Protein (0.0-0.9) mg/dL Total Protein (6.4-8.2) g/dL Albumin (3.4-5.0) g/dL Globulin Albumin/Globulin Ratio Amylase (25-115) U/L Lipase (73-393) U/L Urine Color (YELLOW) Urine Appearance (CLEAR) Urine pH (5.0-9.0) Ur Specific [place] (1.005-1.030) Urine Protein (NEGATIVE) Urine Glucose (UA) (NEGATIVE) Urine Ketones (NEGATIVE) Urine Occult Blood (NEGATIVE) Urine Nitrite (NEGATIVE) Urine Bilirubin (NEGATIVE) Urine Urobilinogen (0.2-1.0) mg/dL Ur Leukocyte Esterase (NEGATIVE) Urine Opiates Screen (NEGATIVE) Ur Oxycodone Screen (NEGATIVE) Urine Methadone Screen (NEGATIVE) Ur Barbiturates Screen (NEGATIVE) U Tricyclic Antidepress (NEGATIVE) Ur Phencyclidine Scrn (NEGATIVE) Ur Amphetamine Screen (NEGATIVE) U Methamphetamines Scrn (NEGATIVE) Urine MDMA Screen (NEGATIVE) U Benzodiazepines Scrn (NEGATIVE) Urine Cocaine Screen (NEGATIVE) U Marijuana (THC) Screen (NEGATIVE) Ethyl Alcohol (0) mg/dL SARS-CoV-2 RNA (KARIN) (NEGATIVE) 05/21/21 05/22/21 05/22/21 Range/Units 21:40 05:20 05:20 WBC 1.7 L (5.0-10.0) 10^3/uL RBC 4.82 (4.6-6.2) 10^6/uL Hgb 15.2 D (14.0-18.0) g/dL Hct 44.3 (40.0-54.0) % MCV 91.9 (80-100) fL MCH 31.5 (27.0-34.0) pg MCHC 34.3 (33.0-35.0) g/dL Plt Count 387 (150-450) 10^3/uL Neut % (Auto) (42.2-75.2) % Lymph % (Auto) (20.5-50.1) % [place] % (Auto) (2-8) % Eos % (Auto) (1.0-3.0) % Baso % (Auto) (0.0-1.0) % D-Dimer, Quantitative (0-400) ng/mL ABG Carboxyhemoglobin (0-10) % Sodium 134 L (136-145) mmol/L Potassium 3.4 L (3.5-5.1) mmol/L Chloride 94 L (98-107) mmol/L Carbon Dioxide 32 (21-32) mmol/L Anion Gap 11.4 (7-13) mEq/L BUN 5 L (7-18) mg/dL Creatinine 0.54 L (0.70-1.30) mg/dL Est Cr Clr Drug Dosing 115.68 mL/min Estimated GFR (MDRD) > 60 BUN/Creatinine Ratio (No establ ref range) Glucose 174 H (70-99) mg/dL Lactic Acid 1.0 (0.4-2.0) mmol/L Calcium 8.2 L (8.5-10.1) mg/dL Magnesium (1.8-2.4) mg/dL Total Bilirubin (0.2-1.0) mg/dL AST (15-37) U/L ALT (16-63) U/L Alkaline Phosphatase (46-116) U/L Troponin I High Sens (<=76) pg/mL C-Reactive Protein (0.0-0.9) mg/dL Total Protein (6.4-8.2) g/dL Albumin (3.4-5.0) g/dL Globulin Albumin/Globulin Ratio Amylase (25-115) U/L Lipase (73-393) U/L Urine Color (YELLOW) Urine Appearance (CLEAR) Urine pH (5.0-9.0) Ur Specific [place] (1.005-1.030) Urine Protein (NEGATIVE) Urine Glucose (UA) (NEGATIVE) Urine Ketones (NEGATIVE) Urine Occult Blood (NEGATIVE) Urine Nitrite (NEGATIVE) Urine Bilirubin (NEGATIVE) Urine Urobilinogen (0.2-1.0) mg/dL Ur Leukocyte Esterase (NEGATIVE) Urine Opiates Screen (NEGATIVE) Ur Oxycodone Screen (NEGATIVE) Urine Methadone Screen (NEGATIVE) Ur Barbiturates Screen (NEGATIVE) U Tricyclic Antidepress (NEGATIVE) Ur Phencyclidine Scrn (NEGATIVE) Ur Amphetamine Screen (NEGATIVE) U Methamphetamines Scrn (NEGATIVE) Urine MDMA Screen (NEGATIVE) U Benzodiazepines Scrn (NEGATIVE) Urine Cocaine Screen (NEGATIVE) U Marijuana (THC) Screen (NEGATIVE) Ethyl Alcohol (0) mg/dL SARS-CoV-2 RNA (KARIN) (NEGATIVE) Result Diagrams: 05/22/21 05:20 05/22/21 05:20 Sepsis Event Note - Evaluation Sepsis Screening Result: Sepsis Risk - Focused Exam Vital Signs: Vital Signs Temp Pulse Resp BP Pulse Ox 05/22/21 08:17 98.6 F 95 20 128/78 92 L 05/22/21 04:00 98.7 F 102 H 22 H 118/70 94 L 05/22/21 00:00 99.1 F 108 H 24 H 120/68 95 - Problem List & Annotations (1) Alcohol abuse SNOMED Code(s): 90780207 Code(s): F10.10 - ALCOHOL ABUSE, UNCOMPLICATED Status: Acute Current Visit: No (2) Atelectasis SNOMED Code(s): 50098295 Status: Acute Current Visit: No (3) COPD (chronic obstructive pulmonary disease) SNOMED Code(s): 73592151 Code(s): J44.9 - CHRONIC OBSTRUCTIVE PULMONARY DISEASE, UNSPECIFIED Status: Acute Current Visit: No (4) COPD with acute exacerbation SNOMED Code(s): 595492000 Code(s): J44.1 - CHRONIC OBSTRUCTIVE PULMONARY DISEASE W (ACUTE) EXACERBATION Status: Acute Current Visit: No (5) Cachexia SNOMED Code(s): 397896126 Code(s): R64 - CAC[place] Status: Acute Current Visit: No (6) Hypoxia SNOMED Code(s): 826936775 Code(s): R09.02 - HYPOXEMIA Status: Acute Current Visit: No (7) Pedal edema SNOMED Code(s): 611049762 Code(s): R60.0 - LOCALIZED EDEMA Status: Acute Current Visit: No (8) Tobacco dependence due to cigarettes SNOMED Code(s): 36812332943770952 Code(s): F17.210 - NICOTINE DEPENDENCE, CIGARETTES, UNCOMPLICATED Status: Acute Current Visit: No (9) Alcohol dependence SNOMED Code(s): 47290472 Status: Chronic Current Visit: No (10) Pneumonia SNOMED Code(s): 859996760 Status: Suspected Current Visit: No - Problem List Review Problem List Initiated/Reviewed/Updated: Yes - My Orders Last 24 Hours: My Active Orders 05/21/21 21:30 RT Aerosol Therapy [RC] ASDIRECTED LORazepam [Ativan] See Protocol IVPUSH TITRATE PRN LORazepam [Ativan] See Protocol PO TITRATE PRN 05/21/21 21:31 Wound Care [RC] 05/21/21 21:33 CULTURE SPUTUM + SMEAR [RM] Routine Albuterol/Ipratropium [DuoNeb 3.0-0.5 MG/3 ML] 3 ml NEB Q2H PRN 05/21/21 21:37 oxyCODONE 5 mg PO Q6H PRN 05/21/21 21:39 Oxygen Therapy [RC]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
[2021-05-22] MEDS ORDERED: Iopamidol 612 MG/ML 100 ML Bottle IVPUSH ONE (11:37)
[2021-05-22] MEDS: Acetaminophen 325 MG Tab PO PRN ×2 (14:20→21:03)
--- NOTE | 2021-05-22 15:11 | CT ---
PROCEDURE INFORMATION: Exam: CT Chest With Contrast; Diagnostic Exam date and time: 05/22/2021 1:51 PM Age: 55 years old Clinical indication: Abnormal findings; Abnormal radiologic exam of lung or chest; Other: Hypoxemia; Additional info: Hypoxemia, abnormal cxr TECHNIQUE: Imaging protocol: Diagnostic computed tomography of the chest with contrast. Radiation optimization: All CT scans at this facility use at least one of these dose optimization techniques: automated exposure control; mA and/or kV adjustment per patient size (includes targeted exams where dose is matched to clinical indication); or iterative reconstruction. Contrast material: ISOVUE 300; Contrast volume: 75 ml; Contrast route: INTRAVENOUS (IV); COMPARISON: CT Chest wo Cont 12/25/2019 4:49 PM FINDINGS: Lungs: See "Pleural spaces" finding. Pleural spaces: Small right pleural effusion with basilar atelectasis. Segmental atelectasis in the left lower lobe. Very small left pleural effusion. Heart: Unremarkable. No cardiomegaly. No pericardial effusion. Aorta: Unremarkable. No aortic aneurysm. Lymph nodes: Unremarkable. No enlarged lymph nodes. Bones/joints: Multiple healed bilateral rib fractures. Soft tissues: Unremarkable. IMPRESSION: Very small bilateral pleural effusions with multi segmental atelectasis in both lower lobes.
[2021-05-23] MEDS: methylPREDNISolone Sodium Succinate 40 MG/1 ML SDV IVPUSH SCH ×3 (01:06→14:57)
[2021-05-23] MEDS: Albuterol/Ipratropium 3.0-0.5 MG/3 ML Neb Soln NEB SCH ×3 (01:07→13:44)
[2021-05-23] MEDS ORDERED: Sodium Chloride 0.9% 100 ML ONE (03:47)
[2021-05-23] MEDS: Sodium Chloride 0.9% 10 ML Syringe FLUSH PRN (03:54)
[2021-05-23] MEDS: Piperacillin/Tazobactam 3.375 GM in Sodium Chloride 0.9% 100 ML IV SCH ×2 (03:54→09:33)
[2021-05-23] MEDS: Omeprazole 20 MG Cap.CR PO SCH (05:52)
[2021-05-23] MEDS: Heparin Sodium 5,000 Units/ML Vial SUBCUT SCH ×2 (05:53→14:57)
[2021-05-23 07:13] LABS: CHLORIDE,CL 94 mmol/L (98-107); SODIUM,NA 136 mmol/L (136-145)
[2021-05-23] MEDS: Budesonide 0.5 MG/2 ML Neb Susp NEB SCH (08:02)
[2021-05-23] MEDS: Folic Acid 1 MG Tab PO SCH (09:20)
[2021-05-23] MEDS: DULoxetine 30 MG Cap PO SCH (09:20)
[2021-05-23] MEDS: Multivitamins with Iron/Calcium/Folic Acid/Minerals Tab PO SCH (09:21)
[2021-05-23] MEDS: Gabapentin 300 MG Cap PO SCH ×2 (09:21→14:56)
[2021-05-23] MEDS: Thiamine 100 MG Tab PO SCH (09:21)
[2021-05-23] MEDS: Nicotine 14 MG/24 Hr Patch TRDERM SCH (09:22)
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
[2021-05-23] MEDS: Bacitracin Oint 28.35 GM Tube TOP SCH (10:48)
[2021-05-23 12:47] VITALS: BP 148/82; PULSE 86
== END 2021-05-23 15:00 | disposition home or self-care (01) | DRG 205 ==
LOC: DL.ED 17:49 → DL.MS 20:33
PROVIDERS: ADMIT Internal Medicine; ATTEND Internal Medicine
DX: J98.11 Atelectasis (principal); R09.02 Hypoxemia; J96.01 Acute respiratory failure with hypoxia; J44.1 Chronic obstructive pulmonary disease with (acute) exacerbation; I10 Essential (primary) hypertension; J90 Pleural effusion, not elsewhere classified; E87.1 Hypo-osmolality and hyponatremia; E87.2 Acidosis; R64 Cachexia; M91.10 Juvenile osteochondrosis of head of femur [Legg-Calve-Perthes], unspecified leg; S41.102A Unspecified open wound of left upper arm, initial encounter; X08.8XXD Exposure to other specified smoke, fire and flames, subsequent encounter; L03.119 Cellulitis of unspecified part of limb; L03.114 Cellulitis of left upper limb; T30.0 Burn of unspecified body region, unspecified degree; Z20.822 Contact with and (suspected) exposure to COVID-19; F17.210 Nicotine dependence, cigarettes, uncomplicated; F10.20 Alcohol dependence, uncomplicated; H54.7 Unspecified visual loss; E78.00 Pure hypercholesterolemia, unspecified; K21.9 Gastro-esophageal reflux disease without esophagitis; G62.9 Polyneuropathy, unspecified; F41.9 Anxiety disorder, unspecified; F32.A Depression, unspecified; Z79.899 Other long term (current) drug therapy; Z87.01 Personal history of pneumonia (recurrent); Z87.11 Personal history of peptic ulcer disease; T79.8XXD Other early complications of trauma, subsequent encounter; Z86.19 Personal history of other infectious and parasitic diseases; Z98.890 Other specified postprocedural states; Z68.21 Body mass index [BMI] 21.0-21.9, adult
CPT/HCPCS: 36415; 71045; 80053; 80305; 80307; 81003; 82150; 82375; 83605; 83690; 83735; 84484; 85025; 85379; 86140; 87040 ×2; 93005 ×2; 94640 ×2; 99285; J7030; U0002; 71260; 80048; 85027; A9270-GY; J0696; J1644; J2543; J2920; J2930; J3370; J7050; J7620-GY; Q9967

== ENCOUNTER 2021-06-24 15:02 | Inpatient (IN) | payer MEDICARE, MEDICAID ==
[~2021-06-24 15:02] MED LIST changes: +Albuterol/Ipratropium 3.0-0.5 MG/3 ML Neb Soln NEB ONE; -Aspirin 81 MG Tab.Chew PO ONE
[2021-06-24 15:07] LABS: BASE EXCESS ARTERIAL 1 mmol/L ((-2)-(+3)); BICARBONATE,ARTERIAL 29.3 mmol/L (22-26); O2 DELIVERY DEVICE NON REBR MASK; O2 SATURATION ARTERIAL 96 % (95-100); PO2 ARTERIAL 100 mmHg (70-100)
[2021-06-24 15:16] LABS: PCO2 ARTERIAL 67 mmHg (35-45)
[2021-06-24 15:40] LABS: ANION GAP 19.5 mEq/L (7-13); CHLORIDE,CL 85 mmol/L (98-107); SODIUM,NA 128 mmol/L (136-145)
[2021-06-24 15:50] LABS: ACETAMINOPHEN 0 ug/mL (10-30 (Therapeutic))
[2021-06-24] MEDS ORDERED: Albuterol/Ipratropium 3.0-0.5 MG/3 ML Neb Soln ONE (17:43)
[2021-06-24 19:54] LABS: CORONAVIRUS COVID-19 NAA NEGATIVE (NEGATIVE)
[2021-06-24] MEDS ORDERED: Acetaminophen 325 MG Tab PO PRN (20:43)
[2021-06-24] MEDS ORDERED: Albuterol 0.083% 2.5 MG/3 ML Neb Soln NEB PRN (20:43)
[2021-06-24] MEDS ORDERED: Albuterol/Ipratropium 3.0-0.5 MG/3 ML Neb Soln NEB SCH (20:45)
[2021-06-24] MEDS ORDERED: Bisacodyl 5 MG Tab PO PRN (20:45)
[2021-06-24] MEDS ORDERED: Enoxaparin 40 MG/0.4 ML Syringe SUBCUT SCH (20:45)
[2021-06-24] MEDS ORDERED: Docusate Sodium 100 MG Cap PO PRN (20:45)
[2021-06-24] MEDS ORDERED: methylPREDNISolone Sodium Succinate 125 MG/2 ML SDV IVPUSH STA (20:49)
[2021-06-24] MEDS ORDERED: Formoterol/Mometasone 200-5 MCG 8.8 GM Inhaler IH SCH (21:00)
[2021-06-24] MEDS ORDERED: Silver Sulfadiazine 1% Crm 50 GM Tube TOP SCH (21:00)
[2021-06-24] MEDS ORDERED: cefTRIAXone 2 GM in Sodium Chloride 0.9% 100 ML IV SCH (21:00)
[2021-06-24] MEDS ORDERED: Nystatin Crm 15 GM Tube TOP SCH (21:00)
[2021-06-24] MEDS ORDERED: Azithromycin 250 MG Tab PO SCH (21:00)
[2021-06-25] MEDS ORDERED: methylPREDNISolone Sodium Succinate 40 MG/1 ML SDV IVPUSH SCH (03:00)
[2021-06-25] MEDS ORDERED: Pantoprazole 40 MG Tab.CR PO SCH (06:00)
[2021-06-25] MEDS ORDERED: Budesonide 0.5 MG/2 ML Neb Susp NEB SCH (07:00)
[2021-06-25 07:49] VITALS: PULSE 118
[2021-06-25 07:50] VITALS: BP 104/72
[2021-06-25] MEDS ORDERED: Tiotropium Inhaler 18 MCG Inhalation Powder Cap Kit of 5 INH SCH (09:00)
[2021-06-25] MEDS ORDERED: Thiamine 100 MG Tab PO SCH (09:00)
[2021-06-25] MEDS ORDERED: Docusate Sodium 100 MG Cap PO SCH (09:00)
[2021-06-25] MEDS ORDERED: Folic Acid 1 MG Tab PO SCH (09:00)
[2021-06-25] MEDS ORDERED: DULoxetine 30 MG Cap PO SCH (09:00)
== END 2021-06-24 23:10 | DRG 189 ==
LOC: DL.ED 15:02 → DL.MS 18:42
PROVIDERS: ADMIT Internal Medicine; ATTEND Internal Medicine
DX: J96.21 Acute and chronic respiratory failure with hypoxia (principal); J44.1 Chronic obstructive pulmonary disease with (acute) exacerbation; L03.116 Cellulitis of left lower limb; L03.115 Cellulitis of right lower limb; E78.5 Hyperlipidemia, unspecified; F17.210 Nicotine dependence, cigarettes, uncomplicated; F10.21 Alcohol dependence, in remission; R09.02 Hypoxemia; H54.7 Unspecified visual loss; E78.00 Pure hypercholesterolemia, unspecified; I10 Essential (primary) hypertension; K21.9 Gastro-esophageal reflux disease without esophagitis; Z87.01 Personal history of pneumonia (recurrent); Z87.81 Personal history of (healed) traumatic fracture; F32.A Depression, unspecified; Z98.890 Other specified postprocedural states; F41.9 Anxiety disorder, unspecified; G62.9 Polyneuropathy, unspecified; F17.200 Nicotine dependence, unspecified, uncomplicated; Z79.899 Other long term (current) drug therapy; Z20.822 Contact with and (suspected) exposure to COVID-19
CPT/HCPCS: 0240U; 36415; 36600; 71045; 80053; 80143; 80179; 80307; 82803; 83605; 83735; 83880; 84484; 85025; 85379; 87040; 93005; 94640; 99285-25; A9270-GY; J0696; J1650; J2930; J7620-GY

== ENCOUNTER 2021-12-04 15:28 | Emergency (ER) | payer MEDICARE, MEDICAID ==
[2021-12-04 14:22] LABS: ANION GAP 15.9 mEq/L (7-13); CHLORIDE,CL 90 mmol/L (98-107); ESTIMATED GFR 113 mL/min (>=60); SODIUM,NA 131 mmol/L (136-145)
[2021-12-04 14:28] VITALS: BP 104/77; PULSE 103
[~2021-12-04 15:28] MED LIST changes: +Albuterol 0.083% 2.5 MG/3 ML Neb Soln NEB ONE; -Albuterol/Ipratropium 3.0-0.5 MG/3 ML Neb Soln NEB ONE; +MVI, Adult with Vitamin K 10 ML, Folic Acid 1 MG, Thiamine 100 MG in Lactated Ringers 1... IV ONE; +Sodium Chloride 0.9% 10 ML Syringe FLUSH PRN
[2021-12-04] MEDS ORDERED: Doxycycline Monohydrate 100 MG Cap PO ONE (15:29)
[2021-12-04] MEDS ORDERED: Doxycycline Monohydrate 100 MG Cap ONE (16:00)
== END 2021-12-04 16:00 | disposition home or self-care (01) ==
LOC: DL.ED 15:28
DX: J18.9 Pneumonia, unspecified organism (principal); F10.120 Alcohol abuse with intoxication, uncomplicated; E87.2 Acidosis; E86.0 Dehydration; J44.9 Chronic obstructive pulmonary disease, unspecified; E78.00 Pure hypercholesterolemia, unspecified; I10 Essential (primary) hypertension; K21.9 Gastro-esophageal reflux disease without esophagitis; Z79.899 Other long term (current) drug therapy; Z20.822 Contact with and (suspected) exposure to COVID-19
CPT/HCPCS: 36415; 71045; 80053; 80307; 83605; 85025; 86140; 87040; 87070; 87077; 87186; 87205; 96365; 99284; A9270; J3411; J7120; U0002; J3490; J7613-GY

== ENCOUNTER 2022-04-28 20:07 | Inpatient (IN) | payer MEDICARE, MEDICAID ==
[2022-04-28] MEDS ORDERED: Dextrose 5%-0.9% NaCl 1,000 ML IV SCH (20:30)
[2022-04-28 20:57] LABS: O2 DELIVERY DEVICE NASAL CANNULA
[2022-04-28 20:59] LABS: ALLEN TEST PERFORMED; PCO2 ARTERIAL 68 mmHg (35-45)
[2022-04-28 21:00] LABS: BASE EXCESS ARTERIAL -3 mmol/L ((-2)-(+3)); BICARBONATE,ARTERIAL 26.8 mmol/L (22-26); O2 FLOW RATE 5; O2 SATURATION ARTERIAL 85 % (95-100); PO2 ARTERIAL 59 mmHg (70-100)
[2022-04-28] MEDS ORDERED: methylPREDNISolone Sodium Succinate 125 MG/2 ML SDV IVPUSH ONE ×2 (21:03→21:05)
[2022-04-28 21:23] LABS: ANION GAP 16.1 mEq/L (7-13); CHLORIDE,CL 88 mmol/L (98-107); SODIUM,NA 127 mmol/L (136-145)
[2022-04-28 21:25] LABS: AMPHETAMINES,URINE NEGATIVE (NEGATIVE); BARBITURATES,URINE NEGATIVE (NEGATIVE); BENZODIAZEPINE,URINE NEGATIVE (NEGATIVE); MDMA (ECSTASY), URINE NEGATIVE (NEGATIVE); METHADONE,URINE NEGATIVE (NEGATIVE); METHAMPHETAMINES,URINE NEGATIVE (NEGATIVE); OPIATES,URINE NEGATIVE (NEGATIVE); OXYCODONE,URINE NEGATIVE (NEGATIVE); PHENCYCLIDINE,URINE NEGATIVE (NEGATIVE); TCA,URINE NEGATIVE (NEGATIVE)
[2022-04-28 21:26] LABS: ESTIMATED GFR 124 mL/min (>=60)
[2022-04-28] MEDS ORDERED: Magnesium Sulfate/Water 2 GM in Premix Bag 1 BAG IV ONE ×4 (21:36)
[2022-04-28] MEDS ORDERED: MVI, Adult with Vitamin K 10 ML, Thiamine 100 MG, Folic Acid 1 MG in Lactated Ringers 1... IV ONE ×4 (21:38)
[2022-04-28 21:50] LABS: CORONAVIRUS COVID-19 NAA NEGATIVE (NEGATIVE); RESPIRATORY SYNCYTIAL VIR NAA NEGATIVE (NEGATIVE)
[2022-04-28 23:35] LABS: O2 DELIVERY DEVICE NASAL CANNULA
[2022-04-28 23:36] LABS: ALLEN TEST PERFORMED; O2 FLOW RATE 5; PCO2 ARTERIAL 69 mmHg (35-45); PO2 ARTERIAL 61 mmHg (70-100)
[2022-04-28 23:37] LABS: BASE EXCESS ARTERIAL 0 mmol/L ((-2)-(+3)); O2 SATURATION ARTERIAL 88 % (95-100)
[2022-04-29] MEDS: Albuterol/Ipratropium 3.0-0.5 MG/3 ML Neb Soln NEB ONE (00:03)
[2022-04-29] MEDS ORDERED: Vancomycin 750 MG SDV ONE (00:16)
[2022-04-29] MEDS ORDERED: Polyethylene Glycol 3350 Powder 17 GM Packet PO PRN (00:40)
[2022-04-29] MEDS ORDERED: Magnesium Hydroxide 400 MG/5 ML Susp 30 ML Cup PO PRN (00:40)
[2022-04-29] MEDS ORDERED: Acetaminophen 325 MG Tab PO PRN (00:40)
[2022-04-29] MEDS ORDERED: Ondansetron 4 MG/2 ML SDV IVPUSH PRN (00:40)
[2022-04-29] MEDS ORDERED: HYDROmorphone 0.5 MG/0.5 ML Syringe IVPUSH PRN (00:40)
[2022-04-29] MEDS ORDERED: Albuterol/Ipratropium 3.0-0.5 MG/3 ML Neb Soln NEB PRN (00:40)
[2022-04-29] MEDS ORDERED: Acetaminophen/HYDROcodone 325-5 MG Tab PO PRN (00:40)
[2022-04-29] MEDS ORDERED: guaiFENesin/Dextromethorphan 100-10 MG/5 ML Soln 5 ML Cup PO PRN (00:48)
[2022-04-29] MEDS ORDERED: Glucagon,Human Recombinant 1 MG Vial IM PRN (00:51)
[2022-04-29] MEDS ORDERED: 50% Dextrose in Water 50 ML Syringe IVPUSH PRN (00:51)
[2022-04-29] MEDS ORDERED: Morphine 2 MG/ML SYRINGE IVPUSH PRN (00:52)
[2022-04-29] MEDS ORDERED: Docusate Sodium 100 MG Cap PO PRN (00:58)
[2022-04-29] MEDS ORDERED: Sodium Chloride 0.9% 1,000 ML IV SCH (01:00)
[2022-04-29] MEDS ORDERED: Metoprolol Tartrate 5 MG/5 ML SDV IVPUSH PRN (01:02)
[2022-04-29] MEDS ORDERED: hydrALAZINE 20 MG/ML SDV IVPUSH PRN (01:02)
[2022-04-29] MEDS ORDERED: acetaZOLAMIDE 500 MG Cap.ER PO ONE (01:07)
[2022-04-29] MEDS: methylPREDNISolone Sodium Succinate 125 MG/2 ML SDV IVPUSH SCH ×4 (06:04→23:29)
[2022-04-29] MEDS: Pantoprazole 40 MG Tab.CR PO SCH (06:04)
[2022-04-29] MEDS: Albuterol/Ipratropium 3.0-0.5 MG/3 ML Neb Soln NEB SCH ×3 (06:05→23:29)
[2022-04-29 06:41] LABS: ANION GAP 15.6 mEq/L (7-13)
[2022-04-29] MEDS ORDERED: Pneumococcal Polyvalent-23 Vaccine 0.5 ML SDV IM ONE (07:46)
[2022-04-29] MEDS: Formoterol/Mometasone 200-5 MCG 8.8 GM Inhaler IH SCH ×2 (08:03→17:34)
[2022-04-29] MEDS: Insulin Lispro 100 Units/ML 3 ML Vial SUBCUT SCH ×3 (08:04→17:30)
[2022-04-29] MEDS ORDERED: Magnesium Sulfate/Water 2 GM in Premix Bag 1 BAG IV ONE (09:00)
[2022-04-29] MEDS ORDERED: Enoxaparin 40 MG/0.4 ML Syringe SUBCUT SCH (09:00)
[2022-04-29] MEDS ORDERED: Magnesium Sulfate/Water 2 GM in Premix Bag 1 BAG IV SCH (09:00)
[2022-04-29] MEDS ORDERED: cefTRIAXone 2 GM in Sodium Chloride 0.9% 100 ML IV SCH (09:00)
[2022-04-29] MEDS: Sodium Chloride 0.9% 10 ML Syringe FLUSH PRN ×2 (09:27→23:49)
[2022-04-29] MEDS: Gabapentin 100 MG Cap PO SCH ×2 (09:33→21:19)
[2022-04-29] MEDS: amLODIPine 5 MG Tab PO SCH (09:33)
[2022-04-29] MEDS: DULoxetine 30 MG Cap PO SCH (09:33)
[2022-04-29] MEDS: Folic Acid 1 MG Tab PO SCH (09:34)
[2022-04-29] MEDS: acetaZOLAMIDE 250 MG Tab PO SCH ×2 (09:34→21:18)
[2022-04-29] MEDS: Thiamine 100 MG Tab PO SCH (09:34)
[2022-04-29] MEDS: Saccharomyces Boulardii (Probiotic) 250 MG Cap PO SCH ×2 (09:34→21:17)
[2022-04-29] MEDS: Nicotine 21 MG/24 Hr Patch TRDERM SCH (09:35)
[2022-04-29] MEDS: Azithromycin 500 MG in Sodium Chloride 0.9% 250 ML IV SCH (10:15)
[2022-04-29 18:46] LABS: O2 DELIVERY DEVICE NASAL CANNULA
[2022-04-29 18:48] LABS: ALLEN TEST PERFORMED; BASE EXCESS ARTERIAL 0 mmol/L ((-2)-(+3)); BICARBONATE,ARTERIAL 27.2 mmol/L (22-26); O2 FLOW RATE 2; O2 SATURATION ARTERIAL 87 % (95-100); PCO2 ARTERIAL 55 mmHg (35-45); PO2 ARTERIAL 54 mmHg (70-100)
[2022-04-29] MEDS: Acetaminophen/HYDROcodone 325-10 MG Tab PO PRN (21:18)
[2022-04-29] MEDS: Multivitamin Tab PO SCH (21:19)
[2022-04-29] MEDS: Apixaban 5 MG Tab PO SCH (21:19)
[2022-04-29] MEDS: Melatonin 3 MG Tab PO SCH (23:29)
[2022-04-30] MEDS: Sodium Chloride 0.9% 10 ML Syringe FLUSH PRN ×3 (06:33→17:42)
[2022-04-30] MEDS: methylPREDNISolone Sodium Succinate 125 MG/2 ML SDV IVPUSH SCH ×3 (06:33→17:41)
[2022-04-30 06:37] LABS: ANION GAP 11.3 mEq/L (7-13)
[2022-04-30] MEDS: Albuterol/Ipratropium 3.0-0.5 MG/3 ML Neb Soln NEB SCH ×3 (06:37→23:36)
[2022-04-30] MEDS: Pantoprazole 40 MG Tab.CR PO SCH (06:37)
[2022-04-30] MEDS: Formoterol/Mometasone 200-5 MCG 8.8 GM Inhaler IH SCH ×2 (06:40→17:40)
[2022-04-30] MEDS: DULoxetine 30 MG Cap PO SCH (08:13)
[2022-04-30] MEDS: Thiamine 100 MG Tab PO SCH (08:14)
[2022-04-30] MEDS: Folic Acid 1 MG Tab PO SCH (08:14)
[2022-04-30] MEDS: Saccharomyces Boulardii (Probiotic) 250 MG Cap PO SCH ×2 (08:14→20:36)
[2022-04-30] MEDS: Acetaminophen/HYDROcodone 325-10 MG Tab PO PRN ×3 (08:15→20:37)
[2022-04-30] MEDS: Apixaban 5 MG Tab PO SCH ×2 (08:15→20:37)
[2022-04-30] MEDS: Gabapentin 100 MG Cap PO SCH ×2 (08:15→20:37)
[2022-04-30] MEDS: Azithromycin 500 MG in Sodium Chloride 0.9% 250 ML IV SCH (08:17)
[2022-04-30] MEDS: Nicotine 21 MG/24 Hr Patch TRDERM SCH (08:21)
[2022-04-30] MEDS: amLODIPine 5 MG Tab PO SCH (08:21)
[2022-04-30] MEDS: Insulin Lispro 100 Units/ML 3 ML Vial SUBCUT SCH ×3 (08:27→17:17)
[2022-04-30] MEDS: cefTRIAXone 1 GM in Sodium Chloride 0.9% 100 ML IV SCH (08:32)
[2022-04-30] MEDS ORDERED: cefTRIAXone 1 GM in Sodium Chloride 0.9% 100 ML IV SCH (09:00)
[2022-04-30] MEDS ORDERED: Magnesium Sulfate/Water 2 GM in Premix Bag 1 BAG IV ONE (09:06)
[2022-04-30] MEDS ORDERED: Potassium Chloride 10 MEQ Tab.ER PO ONE (09:06)
[2022-04-30 09:42] LABS: HEMOGLOBIN A1C 5.5 % (<5.7)
[2022-04-30] MEDS: Metoprolol Tartrate 25 MG Tab PO SCH (20:36)
[2022-04-30] MEDS: Melatonin 3 MG Tab PO SCH (20:36)
[2022-04-30] MEDS: Multivitamin Tab PO SCH (20:37)
[2022-05-01] MEDS ORDERED: methylPREDNISolone Sodium Succinate 125 MG/2 ML SDV IVPUSH SCH
[2022-05-01] MEDS: Pantoprazole 40 MG Tab.CR PO SCH (05:41)
[2022-05-01 07:09] LABS: ANION GAP 10.2 mEq/L (7-13)
[2022-05-01] MEDS ORDERED: Potassium Chloride 10 MEQ Tab.ER PO ONE (07:14)
[2022-05-01] MEDS ORDERED: Magnesium Sulfate/Water 2 GM in Premix Bag 1 BAG IV ONE (07:15)
[2022-05-01] MEDS: Formoterol/Mometasone 200-5 MCG 8.8 GM Inhaler IH SCH ×2 (08:00→17:08)
[2022-05-01] MEDS: Apixaban 5 MG Tab PO SCH ×2 (08:23→21:06)
[2022-05-01] MEDS: Thiamine 100 MG Tab PO SCH (08:23)
[2022-05-01] MEDS: Gabapentin 100 MG Cap PO SCH ×2 (08:23→21:06)
[2022-05-01] MEDS: Saccharomyces Boulardii (Probiotic) 250 MG Cap PO SCH ×2 (08:23→21:06)
[2022-05-01] MEDS: amLODIPine 5 MG Tab PO SCH (08:24)
[2022-05-01] MEDS: DULoxetine 30 MG Cap PO SCH (08:25)
[2022-05-01] MEDS: Metoprolol Tartrate 25 MG Tab PO SCH ×2 (08:26→21:07)
[2022-05-01] MEDS: Folic Acid 1 MG Tab PO SCH (08:26)
[2022-05-01] MEDS: Nicotine 21 MG/24 Hr Patch TRDERM SCH (08:27)
[2022-05-01] MEDS: Insulin Lispro 100 Units/ML 3 ML Vial SUBCUT SCH ×3 (08:32→16:10)
[2022-05-01] MEDS: methylPREDNISolone Sodium Succinate 125 MG/2 ML SDV IVPUSH SCH ×3 (08:32→23:30)
[2022-05-01] MEDS: cefTRIAXone 1 GM in Sodium Chloride 0.9% 100 ML IV SCH (09:53)
[2022-05-01] MEDS: Azithromycin 500 MG in Sodium Chloride 0.9% 250 ML IV SCH (09:53)
[2022-05-01] MEDS: Albuterol/Ipratropium 3.0-0.5 MG/3 ML Neb Soln NEB SCH (10:54)
[2022-05-01] MEDS: Melatonin 3 MG Tab PO SCH (21:06)
[2022-05-01] MEDS: Multivitamin Tab PO SCH (21:06)
[2022-05-01] MEDS: Sodium Chloride 0.9% 10 ML Syringe FLUSH PRN (23:30)
[2022-05-02] MEDS: Pantoprazole 40 MG Tab.CR PO SCH (06:08)
[2022-05-02] MEDS: Formoterol/Mometasone 200-5 MCG 8.8 GM Inhaler IH SCH (06:09)
[2022-05-02 07:05] LABS: ANION GAP 10.7 mEq/L (7-13)
[2022-05-02] MEDS ORDERED: amLODIPine 5 MG Tab PO SCH (09:00)
[2022-05-02] MEDS: Insulin Lispro 100 Units/ML 3 ML Vial SUBCUT SCH ×3 (09:37→17:39)
[2022-05-02] MEDS: Saccharomyces Boulardii (Probiotic) 250 MG Cap PO SCH (09:41)
[2022-05-02] MEDS: DULoxetine 30 MG Cap PO SCH (09:41)
[2022-05-02] MEDS: Apixaban 5 MG Tab PO SCH (09:42)
[2022-05-02] MEDS: Folic Acid 1 MG Tab PO SCH (09:42)
[2022-05-02] MEDS: Metoprolol Tartrate 25 MG Tab PO SCH (09:43)
[2022-05-02] MEDS: amLODIPine 5 MG Tab PO SCH (09:43)
[2022-05-02] MEDS: Thiamine 100 MG Tab PO SCH (09:44)
[2022-05-02] MEDS: methylPREDNISolone Sodium Succinate 125 MG/2 ML SDV IVPUSH SCH ×2 (09:45→15:44)
[2022-05-02] MEDS: Gabapentin 100 MG Cap PO SCH (09:46)
[2022-05-02] MEDS: Nicotine 21 MG/24 Hr Patch TRDERM SCH (09:47)
[2022-05-02] MEDS: Azithromycin 500 MG in Sodium Chloride 0.9% 250 ML IV SCH (09:49)
[2022-05-02] MEDS ORDERED: Magnesium Sulfate/Water 2 GM in Premix Bag 1 BAG IV ONE (10:00)
[2022-05-02] MEDS ORDERED: Potassium Chloride 10 MEQ Tab.ER PO ONE (11:00)
[2022-05-02] MEDS: cefTRIAXone 1 GM in Sodium Chloride 0.9% 100 ML IV SCH (11:52)
[2022-05-02] MEDS ORDERED: Potassium Chloride 20 MEQ in Premix Bag 1 BAG IV SCH (14:00)
[2022-05-02 16:19] VITALS: BP 109/71; PULSE 98
[2022-05-02] MEDS ORDERED: Potassium Chloride 10 MEQ Tab.ER PO SCH (18:00)
== END 2022-05-02 19:22 | disposition other institution (70) | DRG 871 ==
LOC: DL.ED 20:07 → DL.MS 04-29 00:18
PROVIDERS: ADMIT Internal Medicine; ATTEND Internal Medicine
DX: A41.9 Sepsis, unspecified organism (principal); E43 Unspecified severe protein-calorie malnutrition; L03.116 Cellulitis of left lower limb; L03.115 Cellulitis of right lower limb; G93.41 Metabolic encephalopathy; R06.89 Other abnormalities of breathing; F10.20 Alcohol dependence, uncomplicated; Y90.9 Presence of alcohol in blood, level not specified; Z91.14 Patient's other noncompliance with medication regimen; Z66 Do not resuscitate; E78.00 Pure hypercholesterolemia, unspecified; J96.22 Acute and chronic respiratory failure with hypercapnia; J96.21 Acute and chronic respiratory failure with hypoxia; J44.1 Chronic obstructive pulmonary disease with (acute) exacerbation; Z68.1 Body mass index [BMI] 19.9 or less, adult; E87.20 Acidosis, unspecified; Z79.01 Long term (current) use of anticoagulants; Z79.899 Other long term (current) drug therapy; E87.1 Hypo-osmolality and hyponatremia; Z20.822 Contact with and (suspected) exposure to COVID-19; I10 Essential (primary) hypertension; F17.210 Nicotine dependence, cigarettes, uncomplicated; F41.9 Anxiety disorder, unspecified; K21.9 Gastro-esophageal reflux disease without esophagitis; D50.9 Iron deficiency anemia, unspecified; F32.A Depression, unspecified; E87.6 Hypokalemia; E83.42 Hypomagnesemia; R73.9 Hyperglycemia, unspecified; F19.10 Other psychoactive substance abuse, uncomplicated; R53.1 Weakness; F10.129 Alcohol abuse with intoxication, unspecified; E86.0 Dehydration; E87.8 Other disorders of electrolyte and fluid balance, not elsewhere classified; E83.51 Hypocalcemia; G62.9 Polyneuropathy, unspecified; I25.2 Old myocardial infarction; Z87.01 Personal history of pneumonia (recurrent); Z98.890 Other specified postprocedural states; T38.0X5A Adverse effect of glucocorticoids and synthetic analogues, initial encounter; Y92.89 Other specified places as the place of occurrence of the external cause
CPT/HCPCS: 0241U; 36415; 36600; 71045; 80048; 80053; 80305; 80307; 81001; 82150; 82803; 82947; 83036; 83605; 83690; 83735; 84145; 84484; 85025; 85379; 86140; 87040; 87070; 87077; 87205; 93005; 93970; 94640; 96361; 96365; 96366; 96367; 96368; 96375; 97161; 97165; 97530; 99285; A9270-GY; C1758; J0456; J0696; J1170; J1650; J1815-GY; J2930; J3370; J3411; J3475; J3480; J3490; J7030; J7042; J7050; J7120; J7620-GY

== ENCOUNTER 2022-05-20 03:56 | Emergency (ER) | payer MEDICARE, MEDICAID ==
[~2022-05-20 03:56] MED LIST changes: -MVI, Adult with Vitamin K 10 ML, Folic Acid 1 MG, Thiamine 100 MG in Lactated Ringers 1... IV ONE; -Sodium Chloride 0.9% 10 ML Syringe FLUSH PRN
[2022-05-20 03:57] VITALS: BP 123/86
[2022-05-20 03:58] VITALS: PULSE 100
== END 2022-05-20 04:35 | disposition home or self-care (01) ==
LOC: DL.ED 03:56
DX: J44.1 Chronic obstructive pulmonary disease with (acute) exacerbation (principal); I10 Essential (primary) hypertension; K21.9 Gastro-esophageal reflux disease without esophagitis; Z86.711 Personal history of pulmonary embolism; Z79.01 Long term (current) use of anticoagulants; Z79.899 Other long term (current) drug therapy
CPT/HCPCS: 94640; 99285; J7613-GY